=== PATIENT | male | born 1955 | race Caucasian/White ===

== ENCOUNTER 2022-12-05 19:43 | Emergency (ER) | payer MEDICARE, SELFPAY ==
[2022-12-05 19:58] VITALS: BP 164/86; PULSE 86; RESP 18; TEMP 36.4; O2SAT 96; BMI 26.4
--- NOTE | 2022-12-05 20:06 | ED.MALEGU1 ---
HPI - Male Genitourinary General Chief complaint: Urogenital-Male Stated complaint: Urine Retention Time Seen by Provider: 12/05/22 20:03 Mode of arrival: walk-in History of Present Illness HPI Narrative: patient is a 67-year-old male who presents to the emergency department for urinary retention. He states he has not been able to urinate for several hours. He takes Flomax daily to help him with his urine stream. He states he has had to have a Gómez catheter in the past due to urinary retention. He has not had any fevers, vomiting. No other urinary symptoms noted today. No medications taken prior to arrival. Related Data Home Medications Medication Instructions Recorded Confirmed tamsulosin 0.4 mg capsule 0.4 mg PO DAILY 12/05/22 12/05/22 Allergies Allergy/AdvReac Type Severity Reaction Status Date / Time No Known Drug Allergies Allergy Verified 12/05/22 20:01 Review of Systems ROS Constitutional Denies: fever or chills Respiratory Denies: shortness of breath or cough Gastrointestinal Reports: abdominal pain; Denies: nausea, vomiting or diarrhea Genitourinary Reports: difficulty urinating; Denies: painful urination or blood in urine Musculoskeletal Denies: back pain Integumentary/Breast Denies: rash Hematologic/Lymphatic Denies: easy bruising PFSH PFSH Social History Smoking status: Never smoker Exam Constitutional Vital Signs, click to edit/add: Last Vital Signs Temp 97.6 F 12/05/22 19:58 Pulse 82 12/05/22 21:09 Resp 14 12/05/22 21:09 BP 134/84 12/05/22 21:09 Pulse Ox 93 L 12/05/22 21:09 O2 Del Method Room Air 12/05/22 21:09 Course Vital Signs Vital signs: Vital Signs Temperature 97.6 F 12/05/22 19:58 Pulse Rate 86 12/05/22 19:58 Respiratory Rate 18 12/05/22 19:58 Blood Pressure 164/86 H 12/05/22 19:58 Pulse Oximetry 96 12/05/22 19:58 Oxygen Delivery Method Room Air 12/05/22 19:58 Temperature 97.6 F 12/05/22 19:58 Pulse Rate 82 12/05/22 21:09 Respiratory Rate 14 12/05/22 21:09 Blood Pressure 134/84 12/05/22 21:09 Pulse Oximetry 93 L 12/05/22 21:09 Oxygen Delivery Method Room Air 12/05/22 21:09 MDM - Male Genitourinary MDM Narrative Medical decision making narrative: bladder scan with greater than 700mL, Gómez catheter was placed and over 1000mLs were drained, patient states he feels much better. Urine specimen with no evidence of urinary tract infection. Patient was encouraged to keep the Gómez catheter in place for at least 3-5 days. He does not currently have a primary care provider or urologist. He is referred to both primary care and urology locally. He understands he should return to the Emergency Room if he is having trouble getting in with a provider to remove the Gómez catheter. Return to the Emergency Room if symptoms change or worsen. He is sitting comfortably awaiting discharge at reevaluation. Medical Records Attestation: I reviewed the patient's medical records. Lab Data Attestation: I reviewed the patient's lab results. Labs: Lab Results 12/05/22 Range/Units 20:20 Urine Color Lt. yellow (YELLOW) Urine Clarity Clear (CLEAR) Urine pH 6.0 (5.0-9.0) Ur Specific [place] <=1.005 A (1.005-1.025) Urine Protein Negative (NEG/TRACE) mg/dL Urine Glucose (UA) Negative (NEGATIVE) mg/dL Urine Ketones Negative (NEGATIVE) mg/dL Urine Occult Blood Negative (NEGATIVE) Urine Nitrite Negative (NEGATIVE) Urine Bilirubin Negative (NEGATIVE) Urine Urobilinogen 0.2 (0.2-1.0) EU/dL Ur Leukocyte Esterase Trace A (NEGATIVE) Urine RBC 0-2 (0-2) #/HPF Urine WBC 0-2 A (NONE SEEN) #/HPF Ur Squamous Epith Cells Rare (NONE/RARE) #/LPF Urine Crystals None seen (None Seen) #/HPF Urine Bacteria None seen (NONE SEEN) #/HPF Urine Casts None seen (NONE SEEN) #/LPF Urine Mucus None seen (NONE SEEN) Ur Culture Indicated? No Discharge Plan Discharge Chief Complaint: Urogenital-Male Clinical Impression: Acute urinary retention Patient Disposition: Home, Self-Care Time of Disposition Decision: 21:00 Condition: Good Prescriptions / Home Meds: No Action tamsulosin 0.4 mg capsule 0.4 mg PO DAILY Instructions: Urinary Retention in Men (ED), Gómez Catheter Placement and Care (ED) Stand Alone Forms: Portal Instructions Referrals: Halley Cristobal MD [Physician] - As soon as possible MICHEAL XIONG APRN [Physician] - As soon as possible Discharge Date/Time: 12/05/22 21:11
[2022-12-05 20:38] LABS: Bilirubin Urine NEGATIVE (NEGATIVE); Blood Urine NEGATIVE (NEGATIVE); Clarity Urine CLEAR (CLEAR); Color Urine LT. YELLOW (YELLOW); Glucose Urine UA NEGATIVE (NEGATIVE); Ketones Urine NEGATIVE (NEGATIVE); Leukocyte Esterase Urine TRACE (NEGATIVE); Nitrite Urine NEGATIVE (NEGATIVE); Protein Urine NEGATIVE (NEG/TRACE); Specific Gravity Urine <=1.005 (1.005-1.025); Urine Microscopic Indicated YES; Urobilinogen Urine 0.2 EU/dL (0.2-1.0)
[2022-12-05 20:51] LABS: Bacteria Urine NONE SEEN #/HPF (NONE SEEN); Cast Seen? NONE SEEN #/LPF (NONE SEEN); Crystals Seen? None Seen #/HPF (None Seen); Mucus Urine NONE SEEN (NONE SEEN); RBC Urine 0-2 #/HPF (0-2); Squamous Epithelial Cell Urine RARE #/LPF (NONE/RARE); Urine Culture Indicated NO; WBC Urine 0-2 #/HPF (NONE SEEN)
[2022-12-05 21:09] VITALS: BP 134/84; PULSE 82; RESP 14; O2SAT 93
== END 2022-12-05 21:11 | disposition home or self-care (01) ==
PROVIDERS: Physician Assistant; Emergency Provider Internal Medicine
DX: R33.9 Retention of urine, unspecified (principal); Z79.899 Other long term (current) drug therapy
CPT/HCPCS: 51702; 81001; 99284

== ENCOUNTER 2022-12-06 08:03 | Emergency (ER) | payer MEDICARE, SELFPAY ==
[2022-12-06 08:09] VITALS: BP 167/92; PULSE 87; RESP 18; TEMP 36.5; O2SAT 97; BMI 26.4
--- NOTE | 2022-12-06 08:20 | ED_ITS ---
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 He was seen here in this emergency department last night and had acute urinary retention. Gómez catheter was placed. The catheter has been draining but intermittently he's been having some pain which makes him feel like he has to urinate. No fever or back pain. Related Data Home Medications Medication Instructions Recorded Confirmed tamsulosin 0.4 mg capsule 0.4 mg PO DAILY 12/05/22 12/06/22 Previous Rx's Medication Instructions Recorded oxybutynin chloride 5 mg 5 mg PO DAILY #14 tabs 12/06/22 tablet,extended release 24 hr Allergies Allergy/AdvReac Type Severity Reaction Status Date / Time No Known Drug Allergies Allergy Verified 12/05/22 20:01 Review of Systems ROS Narrative A ten point review of systems is negative except as noted above. PFSH PFSH Social History Smoking status: Former smoker Exam Narrative Exam Narrative: Nurses note and vital signs reviewed and patient is not hypoxic. General: The patient appears well and in no apparent distress. Patient is resting comfortably on cart. Skin: Warm, dry, no pallor noted. There is no rash noted. Head: Normocephalic, atraumatic Eye: Normal conjunctiva, no drainage Ears, Nose, Mouth, and Throat: oral mucosa is moist. Nares patent. Cardiovascular: Regular Rate and Rhythm Respiratory: Patient is in no distress, no accessory muscle use, lungs are clear to auscultation, no wheezing, rales or rhonchi Back: non-tender : Gómez catheter in place which is draining clear pink urine. GI: soft and nontender and nondistended Musculoskeletal: The patient has no evidence of calf tenderness, no pitting edema, symmetrical pulses noted bilaterally Neurological: A&O, normal speech Psychiatric: Cooperative Constitutional Vital Signs, click to edit/add: Last Vital Signs Temp 97.7 F 12/06/22 08:09 Pulse 89 12/06/22 09:40 Resp 18 12/06/22 09:40 BP 160/93 H 12/06/22 09:40 Pulse Ox 98 12/06/22 09:40 O2 Del Method Room Air 12/06/22 08:09 Course Vital Signs Vital signs: Vital Signs Temperature 97.7 F 12/06/22 08:09 Pulse Rate 87 12/06/22 08:09 Respiratory Rate 18 12/06/22 08:09 Blood Pressure 167/92 H 12/06/22 08:09 Pulse Oximetry 97 12/06/22 08:09 Oxygen Delivery Method Room Air 12/06/22 08:09 Temperature 97.7 F 12/06/22 08:09 Pulse Rate 89 12/06/22 09:40 Respiratory Rate 18 12/06/22 09:40 Blood Pressure 160/93 H 12/06/22 09:40 Pulse Oximetry 98 12/06/22 09:40 Oxygen Delivery Method Room Air 12/06/22 08:09 MDM - Male Genitourinary MDM Narrative Medical decision making narrative: CAT scan shows no acute findings. Bloodwork nonspecific. He'll be prescribed oxybutynin and follow-up with urology. Treatment diagnosis and follow-up were discussed with the patient. Differential Diagnosis Differential diagnosis: Likely other (bladder spasm, Gómez catheter problem) Medical Records Attestation: I reviewed the patient's medical records. Lab Data Attestation: I reviewed the patient's lab results. Labs: Lab Results 12/06/22 12/06/22 Range/Units 08:23 08:30 WBC 5.8 (4.0-11.0) 10^3/uL RBC 4.41 L (4.70-6.10) 10^6/uL Hgb 14.6 (14.0-18.0) g/dL Hct 43.4 (42.0-54.0) % MCV 98.4 H (80.0-94.0) fL MCH 33.1 (25.9-34.0) pg MCHC 33.6 (29.9-35.2) g/dL RDW 12.5 (11.0-15.0) % Plt Count 277 (150-450) 10^3/uL MPV 8.4 L (9.5-13.5) fL Neut % (Auto) 71.6 (43.0-75.0) % Lymph % (Auto) 16.6 L (20.5-60.0) % [place] % (Auto) 7.4 (1.7-12.0) % Eos % (Auto) 3.1 (0.9-7.0) % Baso % (Auto) 1.0 (0.2-2.0) % Neut # (Auto) 4.1 (1.4-6.5) 10^3/uL Lymph # (Auto) 1.0 L (1.2-3.8) 10^3/uL [place] # (Auto) 0.4 (0.3-0.8) 10^3/uL Eos # (Auto) 0.2 (0.0-0.7) 10^3/uL Baso # (Auto) 0.1 (0.0-0.1) 10^3/uL Abs Immat Gran (auto) 0.02 (0.00-0.03) 10^3/uL Imm/Tot Granulo (auto) 0.3 (0.0-0.5) % Sodium 136 (136-145) mmol/L Potassium 4.4 (3.5-5.1) mmol/L Chloride 99 (98-107) mmol/L Carbon Dioxide 30.3 (21.0-32.0) mmol/L Anion Gap 11.1 BUN 14.0 (7.0-18.0) mg/dL Creatinine 0.81 (0.70-1.30) mg/dL Est GFR ( Amer) >60 (>=60) Est GFR (Non-Af Amer) >60 (>=60) BUN/Creatinine Ratio 17.3 Glucose 100 (74-106) mg/dL Calcium 9.1 (8.5-10.1) mg/dL Urine Color Brown A (YELLOW) Urine Clarity Clear (CLEAR) Urine pH 8.0 (5.0-9.0) Ur Specific [place] 1.020 (1.005-1.025) Urine Protein >=300 A (NEG/TRACE) mg/dL Urine Glucose (UA) Negative (NEGATIVE) mg/dL Urine Ketones Trace A (NEGATIVE) mg/dL Urine Occult Blood Large A (NEGATIVE) Urine Nitrite Negative (NEGATIVE) Urine Bilirubin Small A (NEGATIVE) Urine Urobilinogen 1.0 (0.2-1.0) EU/dL Ur Leukocyte Esterase Trace A (NEGATIVE) Urine RBC 50-75 A (0-2) #/HPF Urine WBC 2-5 A (NONE SEEN) #/HPF Ur Squamous Epith Cells Rare (NONE/RARE) #/LPF Urine Crystals None seen (None Seen) #/HPF Urine Bacteria Small A (NONE SEEN) #/HPF Urine Casts Seen A (NONE SEEN) #/LPF Hyaline Casts Rare Urine Mucus None seen (NONE SEEN) Ur Culture Indicated? Yes Imaging Data CT scan - abdomen: Radiologist's impression: Procedure: CT abdomen pelvis w con CT abdomen pelvis w con, 12/06/2022 9:21 AM EDT, [place]001 INDICATION: Gómez catheter placed yesterday, having discomfort COMPARISON: None. TECHNIQUE: Helical images were obtained during intravenous administration of water soluble contrast. Coronal and sagittal reconstructions were also generated. Dose reduction techniques were achieved by using automated exposure control and/or adjustment of mA and/or kV according to patient size and/or use of iterative reconstruction technique. Oral contrast: None. FINDINGS: Slight bibasilar atelectasis. There is decreased density of the hepatic parenchyma most consistent with fatty infiltration. The gallbladder appears unremarkable. The pancreas is within normal limits. The spleen appears unremarkable. The adrenal glands appear unremarkable. There are a few nonobstructing renal calculi bilaterally, the largest measuring 4 mm in the inferior pole of the left kidney. There is no evidence of hydronephrosis or perinephric process. The vasculature appears unremarkable. There is no pathologic retroperitoneal adenopathy. There is a Gómez catheter within the bladder. There is moderate diffuse bladder wall thickening. Prostate gland is enlarged at 6 cm transverse. There is no evidence of pathologic pelvic adenopathy. There is no evidence of free air or free fluid. The bowel loops appear unremarkable. The appendix appears unremarkable. No significant hernia is identified. The osseous structures appear unremarkable. IMPRESSION: There is enlargement of the prostate gland, and moderate urinary bladder wall thickening which can be seen with muscular hypertrophy and cystitis. Gómez catheter projects within the bladder. Several small bilateral nonobstructing bilateral renal calculi. Hepatic steatosis. Electronically authenticated by: SYD GOMEZ Date: 12/06/2022 Discharge Plan Discharge Chief Complaint: Urogenital-Male Clinical Impression: Bladder spasms Patient Disposition: Home, Self-Care Time of Disposition Decision: 10:15 Condition: Good Mode of Transportation: Private Vehicle Prescriptions / Home Meds: New oxybutynin chloride 5 mg tablet extended release 24hr 5 mg PO DAILY Qty: 14 0RF No Action tamsulosin 0.4 mg capsule 0.4 mg PO DAILY Instructions: Gómez Catheter Placement and Care (ED) Stand Alone Forms: Portal Instructions Referrals: Physician,Non-Staff, MD [Primary Care Provider] - 1 week Discharge Date/Time: 12/06/22 10:37
[2022-12-06 08:41] LABS: Basophils Absolute Auto 0.1 10^3/uL (0.0-0.1); Eosinophils Absolute Auto 0.2 10^3/uL (0.0-0.7); Eosinophils Percent Auto 3.1 % (0.9-7.0); Hematocrit 43.4 % (42.0-54.0); Hemoglobin 14.6 g/dL (14.0-18.0); Immature Granulocytes Abs Auto 0.02 10^3/uL (0.00-0.03); Immature Granulocytes Pct Auto 0.3 % (0.0-0.5); Lymphocytes Percent Auto 16.6 % (20.5-60.0); Mean Corpuscular HGB Conc 33.6 g/dL (29.9-35.2); Mean Corpuscular Hemoglobin 33.1 pg (25.9-34.0); Mean Corpuscular Volume 98.4 fL (80.0-94.0); Mean Platelet Volume 8.4 fL (9.5-13.5); Monocytes Absolute Auto 0.4 10^3/uL (0.3-0.8); Monocytes Percent Auto 7.4 % (1.7-12.0); Neutrophils Absolute Auto 4.1 10^3/uL (1.4-6.5); Neutrophils Percent Auto 71.6 % (43.0-75.0); Platelet Count 277 10^3/uL (150-450); Red Blood Count 4.41 10^6/uL (4.70-6.10); Red Cell Distribution Width 12.5 % (11.0-15.0); White Blood Count 5.8 10^3/uL (4.0-11.0)
[2022-12-06 08:44] LABS: Bilirubin Urine SMALL (NEGATIVE); Blood Urine LARGE (NEGATIVE); Clarity Urine CLEAR (CLEAR); Color Urine BROWN (YELLOW); Glucose Urine UA NEGATIVE (NEGATIVE); Ketones Urine TRACE mg/dL (NEGATIVE); Leukocyte Esterase Urine TRACE (NEGATIVE); Nitrite Urine NEGATIVE (NEGATIVE); Protein Urine >=300 mg/dL (NEG/TRACE)
[2022-12-06 08:56] LABS: Anion Gap 11.1; BUN Creatinine Ratio 17.3; Calcium 9.1 mg/dL (8.5-10.1); Carbon Dioxide 30.3 mmol/L (21.0-32.0); Chloride 99 mmol/L (98-107); Estimated GFR (African America >60 (>=60); Estimated GFR (Non-African Ame >60 (>=60); Glucose 100 mg/dL (74-106); Potassium 4.4 mmol/L (3.5-5.1); Sodium 136 mmol/L (136-145)
[2022-12-06 08:57] LABS: Bacteria Urine SMALL #/HPF (NONE SEEN); Mucus Urine NONE SEEN (NONE SEEN); RBC Urine 50-75 #/HPF (0-2)
[2022-12-06 08:58] LABS: Cast Seen? SEEN #/LPF (NONE SEEN); Crystals Seen? None Seen #/HPF (None Seen); Hyaline Casts Urine RARE; Squamous Epithelial Cell Urine RARE #/LPF (NONE/RARE)
[2022-12-06 08:59] LABS: Urine Culture Indicated YES
--- NOTE | 2022-12-06 09:03 | CT_ITS ---
The [address] [address] Patient Name: JOSE ARMANDO SALGUERO MRN: [id number] date: 1955 Sex: M Assigned Patient Location: ER Current Patient Location: ER Accession/Order Number: [id number] Exam Date: 12/06/2022 09:21 Report Date: 12/06/2022 09:53 At the request of: LIDA BOLANOS Procedure: CT abdomen pelvis w con CT abdomen pelvis w con, 12/06/2022 9:21 AM EDT, [place]001 INDICATION: Gómez catheter placed yesterday, having discomfort COMPARISON: None. TECHNIQUE: Helical images were obtained during intravenous administration of water soluble contrast. Coronal and sagittal reconstructions were also generated. Dose reduction techniques were achieved by using automated exposure control and/or adjustment of mA and/or kV according to patient size and/or use of iterative reconstruction technique. Oral contrast: None. FINDINGS: Slight bibasilar atelectasis. There is decreased density of the hepatic parenchyma most consistent with fatty infiltration. The gallbladder appears unremarkable. The pancreas is within normal limits. The spleen appears unremarkable. The adrenal glands appear unremarkable. There are a few nonobstructing renal calculi bilaterally, the largest measuring 4 mm in the inferior pole of the left kidney. There is no evidence of hydronephrosis or perinephric process. The vasculature appears unremarkable. There is no pathologic retroperitoneal adenopathy. There is a Gómez catheter within the bladder. There is moderate diffuse bladder wall thickening. Prostate gland is enlarged at 6 cm transverse. There is no evidence of pathologic pelvic adenopathy. There is no evidence of free air or free fluid. The bowel loops appear unremarkable. The appendix appears unremarkable. No significant hernia is identified. The osseous structures appear unremarkable. CT/CT abdomen pelvis w con IMPRESSION: There is enlargement of the prostate gland, and moderate urinary bladder wall thickening which can be seen with muscular hypertrophy and cystitis. Gómez catheter projects within the bladder. Several small bilateral nonobstructing bilateral renal calculi. Hepatic steatosis. Electronically authenticated by: SYD GOMEZ Date: 12/06/2022 09:53
[2022-12-06 09:40] VITALS: BP 160/93; PULSE 89; RESP 18; O2SAT 98
== END 2022-12-06 10:37 | disposition home or self-care (01) ==
PROVIDERS: Emergency Provider Emergency Medicine
DX: N32.89 Other specified disorders of bladder (principal); Z96.0 Presence of urogenital implants; Z79.899 Other long term (current) drug therapy; Z87.891 Personal history of nicotine dependence
CPT/HCPCS: 36415; 74177; 80048; 81001; 85025; 87086; 99285; Q9967

== ENCOUNTER 2022-12-09 07:10 | Emergency (ER) | payer MEDICARE, SELFPAY ==
[2022-12-09 07:12] VITALS: BP 179/92; PULSE 83; RESP 18; TEMP 36.4; O2SAT 96; BMI 29.9
--- NOTE | 2022-12-09 08:20 | ED.GENADUL1 ---
HPI - General Adult General Chief complaint: Urogenital-Male Stated complaint: CATH REMOVAL Time Seen by Provider: 12/09/22 07:56 Source: patient Mode of arrival: walk-in History of Present Illness HPI narrative: Patient is a 67-year-old male who is presenting to the Emergency Room with chief complaint I'm wondering Gómez catheter removed. Patient was a patient in the Emergency Room on Monday. Patient is having urinary retention, Gómez catheter was placed. Patient was a follow-up with urology. Patient has seen Dr. Arellano in the past. Patient was going to follow up with Dr. Manriquez. There is some sort of issue with the urology office that they have dismissed this patient from the practice and they will not see him. Patient does take Ditropan and Flomax prescribed from Dr. Arellano, he does have several refills. Patient is having no acute complaints with his Gómez catheter, he does not one in any more and can't to the Emergency Room to have removed since he cannot follow-up with urology. Patient has no sediment, no hematuria, no difficulty with fully catheter. Urine is full and the difficulty. His chief concern is I just want my Gómez catheter taken out . All systems are negative except as noted/marked. All systems reviewed and otherwise negative. . Nurses note and vital signs reviewed and patient is not hypoxic. General: The patient appears well and in no apparent distress. Patient is resting comfortably on cart. Patient is not toxic, lethargic, or listless Skin: Warm, dry, no pallor noted. There is no rash noted. No petechiae, purpura. Head: Normocephalic, atraumatic Eye: Normal conjunctiva, no drainage, EOMI. PERRL Ears, Nose, Mouth, and Throat: oral mucosa is moist. Cardiovascular: Regular Rate and Rhythm, no murmur, gallop, rub Respiratory: Patient is in no distress, no accessory muscle use, lungs are clear to auscultation, no wheezing, rales or rhonchi Back: non-tender, no CVA tenderness bilaterally to percussion. No CT LS midline pain GI: soft, no tenderness to palpation, no masses appreciated. No rebound, guarding, or rigidity noted. No flank pain bilateral, No distention : Patient is circumcised, no tenderness to palpation to bilateral testicles. Patient fully catheter is in place. Patient has yellow urine in his Gómez leg bag. No bleeding, no sediment, no blood or clots noted. Gómez catheter looks normal the way it should, no redness or swelling to the glans of the penis or shaft. No acute abnormality seen during exam. Caren Taylor RN at bedside during the entire exam. Musculoskeletal: Patient has full range of motion of all of the extremities, no motor, sensory, or focal neurological deficits Neurological: A&O x3, normal speech Psychiatric: Cooperative Related Data Home Medications Medication Instructions Recorded Confirmed tamsulosin 0.4 mg capsule 0.4 mg PO DAILY 12/05/22 12/06/22 Previous Rx's Medication Instructions Recorded oxybutynin chloride 5 mg 5 mg PO DAILY #14 tabs 12/06/22 tablet,extended release 24 hr Allergies Allergy/AdvReac Type Severity Reaction Status Date / Time No Known Drug Allergies Allergy Verified 12/05/22 20:01 PFSH PFS Social History Smoking status: Current every day smoker Exam Constitutional Vital Signs, click to edit/add: Last Vital Signs Temp 97.6 F 12/09/22 07:12 Pulse 83 12/09/22 07:12 Resp 18 12/09/22 07:12 BP 179/92 H 12/09/22 07:12 Pulse Ox 96 12/09/22 07:12 O2 Del Method Room Air 12/09/22 07:12 Course Vital Signs Vital signs: Vital Signs Temperature 97.6 F 12/09/22 07:12 Pulse Rate 83 12/09/22 07:12 Respiratory Rate 18 12/09/22 07:12 Blood Pressure 179/92 H 12/09/22 07:12 Pulse Oximetry 96 12/09/22 07:12 Oxygen Delivery Method Room Air 12/09/22 07:12 Temperature 97.6 F 12/09/22 07:12 Pulse Rate 83 12/09/22 07:12 Respiratory Rate 18 12/09/22 07:12 Blood Pressure 179/92 H 12/09/22 07:12 Pulse Oximetry 96 12/09/22 07:12 Oxygen Delivery Method Room Air 12/09/22 07:12 Medical Decision Making MDM Narrative Medical decision making narrative: Patient was educated at bedside. Caren Taylor RN was at bedside during the entire HPI and physical exam. Patient was educated that we do not typically take Gómez catheter is in the Emergency Room because there is a very high chance that with his urinary retention or other etiologies that caused him to have a Gómez catheter placed just 4 days ago, chance is very high that he may have urinary difficulties later today and becoming back to the Emergency Room tonight to have a Gómez catheter placed. Patient says that he has burned bridges and Dr. Arellano office, their office will no longer see him. I have reached out to other hospitals locally to try and help this patient establish with another urologist. We have given him information from [facility] and also with [facility] urologist to follow up with his other local U sources, patient lives in [place]. Patient's urine looks yellow, no acute abnormalities, no blood clots, sediment, no acute abnormalities noted. Patient was told once he has a catheter several hours, he needs a follow-up with urology for further evaluation and to see if they would take the catheter out or not. Patient does have Flomax and Ditropan prescribed from Dr. Arellano, he has a few refills left. Patient understands the education given to him at bedside and understands reasons why I am not removing the Gómez catheter today, there is no acute indication to. Patient does have a nurse practitioner to follow-up with as well for family care needs. Discharge Plan Discharge Chief Complaint: Urogenital-Male Clinical Impression: Gómez catheter in place Patient Disposition: Home, Self-Care Condition: Fair Prescriptions / Home Meds: No Action oxybutynin chloride 5 mg tablet extended release 24hr 5 mg PO DAILY Qty: 14 0RF tamsulosin 0.4 mg capsule 0.4 mg PO DAILY Instructions: Gómez Catheter Placement and Care (ED) [phone] [facility] Ferreira, [facility] [address] [place] [address] Stand Alone Forms: Portal Instructions Referrals: Physician,Non-Staff, [Primary Care Provider] - 1 week Discharge Date/Time: 12/09/22 08:15
== END 2022-12-09 08:15 | disposition home or self-care (01) ==
PROVIDERS: Emergency Provider Emergency Medicine
DX: Z96.0 Presence of urogenital implants (principal); F17.210 Nicotine dependence, cigarettes, uncomplicated; Z79.899 Other long term (current) drug therapy
CPT/HCPCS: 99282

== ENCOUNTER 2023-01-11 07:27 | Outpatient (OUT) | payer MEDICARE, SELFPAY ==
[2023-01-11 07:47] LABS: Basophils Percent Auto 0.9 % (0.2-2.0); Eosinophils Absolute Auto 0.2 10^3/uL (0.0-0.7); Eosinophils Percent Auto 4.5 % (0.9-7.0); Hematocrit 44.7 % (42.0-54.0); Immature Granulocytes Abs Auto 0.01 10^3/uL (0.00-0.03); Immature Granulocytes Pct Auto 0.2 % (0.0-0.5); Lymphocytes Absolute Auto 1.2 10^3/uL (1.2-3.8); Lymphocytes Percent Auto 25.8 % (20.5-60.0); Mean Corpuscular HGB Conc 33.6 g/dL (29.9-35.2); Mean Corpuscular Volume 98.5 fL (80.0-94.0); Mean Platelet Volume 8.7 fL (9.5-13.5); Monocytes Absolute Auto 0.4 10^3/uL (0.3-0.8); Monocytes Percent Auto 8.2 % (1.7-12.0); Neutrophils Absolute Auto 2.8 10^3/uL (1.4-6.5); Neutrophils Percent Auto 60.4 % (43.0-75.0); Platelet Count 291 10^3/uL (150-450); Red Blood Count 4.54 10^6/uL (4.70-6.10); Red Cell Distribution Width 12.3 % (11.0-15.0); White Blood Count 4.6 10^3/uL (4.0-11.0)
--- NOTE | 2023-01-11 07:50 | CT_ITS ---
[address] [address] Patient Name: JOSE ARMANDO SALGUERO MRN: [id number] date: 1955 Sex: M Assigned Patient Location: CT Current Patient Location: CT Accession/Order Number: [id number] Exam Date: 01/11/2023 07:55 Report Date: 01/13/2023 06:58 At the request of: MICHEAL XIONG Procedure: CT lung screening low-dose EXAMINATION: CT lung screening low-dose HISTORY: Screening For Malignant Neoplasm Z12.2 COMPARISON: No relevant comparison available. TECHNIQUE: Axial, Coronal, and Sagittal images were created without the administration of IV contrast material. Dose reduction techniques were achieved by using automated exposure control and/or adjustment of mA and/or kV according to patient size and/or use of iterative reconstruction technique. FINDINGS: LUNGS: No visible pulmonary disease. PLEURA: No mass, effusion, or pneumothorax. VASCULATURE: No abnormality. SONAM: No mass or pathologic adenopathy. MEDIASTINUM: No mass or pathologic adenopathy. CARDIAC: No enlargement, pericardial thickening, or significant calcification. AORTA: No aneurysm or dissection. CHEST WALL: No mass or axillary adenopathy BONES: No bone lesion or fracture. LIMITED ABDOMEN: No suspicious findings. Limited images of the upper abdomen. OTHER: Negative. CT/CT lung screening low-dose IMPRESSION: 1. Lung-RADS Category 1 Negative. No nodules and definitely benign nodules. Continue annual screening with LDCT in 12 months. Electronically authenticated by: MURALI NAGEL Date: 01/13/2023 06:58
[2023-01-11 08:16] LABS: Estimated Average Glucose 108 mg/dL; Glycohemoglobin A1C 5.4 % (4.5-6.2)
[2023-01-11 08:42] LABS: Alanine Aminotransferase 27 U/L (16-63); Albumin Level 3.9 g/dL (3.4-5.0); Alkaline Phosphatase 60 U/L (46-116); Aspartate Amino Transferase 18 U/L (15-37); BUN Creatinine Ratio 26.1; Bilirubin Total 0.8 mg/dL (0.2-1.0); Calcium 8.9 mg/dL (8.5-10.1); Chloride 101 mmol/L (98-107); Cholesterol 223 mg/dL (<=200); Estimated GFR (African America >60 (>=60); Estimated GFR (Non-African Ame >60 (>=60); Globulin 3.8 g/dL; Glucose 103 mg/dL (74-106); HDL Cholesterol 113 mg/dL (40-60); Sodium 141 mmol/L (136-145); Total Protein 7.7 g/dL (6.4-8.2); Triglycerides 29 mg/dL (<=150); VLDL CHOLESTEROL 5.8 mg/dL
[2023-01-12 03:07] LABS: HCV Ab Non Reactive (Non Reactive); HIV Ab/p24 Ag Screen Non Reactive (Non Reactive)
== END 2023-01-11 07:28 | disposition home or self-care (01) ==
LOC: CT 07:27
PROVIDERS: PCP Nurse Practitioner Primary Care; Visit Provider Nurse Practitioner Primary Care
DX: Z00.00 Encounter for general adult medical examination without abnormal findings (principal); Z11.59 Encounter for screening for other viral diseases; Z13.6 Encounter for screening for cardiovascular disorders; Z11.4 Encounter for screening for human immunodeficiency virus [HIV]; Z12.2 Encounter for screening for malignant neoplasm of respiratory organs; Z87.891 Personal history of nicotine dependence
CPT/HCPCS: 36415; 71271; 80053; 80061; 83036; 85025; 86803; 87389

== ENCOUNTER 2023-01-11 07:31 | Outpatient (OUT) | payer MEDICARE, SELFPAY ==
[2023-01-11 08:56] LABS: Prostate Specific Antigen Dx 13.44 ng/mL (<=4.00)
== END 2023-01-11 07:32 | disposition home or self-care (01) ==
LOC: LAB 07:32
PROVIDERS: PCP Nurse Practitioner Primary Care
DX: R97.20 Elevated prostate specific antigen [PSA] (principal)
CPT/HCPCS: 36415; 84153

== ENCOUNTER 2025-02-03 18:28 | Emergency (ER) | payer MEDICARE, SELFPAY ==
--- OUTSIDE RECORDS SUMMARY | 2024-11-14 03:30 | XMS_ITS ---
Author Organization [facility] Address [address] [place] [id number] Care Team Providers Care Channel Man Name Role Phone Nunu Tierney Primary Care Provider [phone] REASON FOR VISIT 6 month HTN, BPH Social History Sex Assigned At : Social History Observation Description Sex Assigned At Male Encounters Encounter Location Date Provider Diagnosis [facility] [address] [facility] [facility] [place] [place] [id number] 11/14/2024 Nunu Tierney Plan Of Treatment Next Appt Details Provider Name:Nunu Tierney , 05/12/2025 07:30:00 AM, [address] [place], [place], [id number], Progress Notes * Franki SALGUERO BDOB:[birth year] (69 yo M)Acc No.[id number]:11/14/2024 Medical Note Patient: Franki Pino :?Nunu NiallDOB:1955???Age:69 Y???Sex: MaleDate:11/14/2024Phone:[phone]:[address] [place] [id number] Subjective: * Chief Complaints: * 6 month HTN, BPH * Electronic signature of TALIA Richey on 02/03/2025 at 07:26 PM ESTSign off status: Pending * Provider: Umang Tierney Date: 0 11/14/2024 Generated for Printing/Faxing/eTransmitting on:?02/03/2025 07:26 PM EST
--- OUTSIDE RECORDS SUMMARY | 2025-01-27 02:15 | XMS_ITS ---
Author Organization [facility] vices Address [address], [place] [id number] Care Team Providers Care Physician Support Coordinator Name Role Phone Nunu Tierney Primary Care Provider Allergies No Known Allergies Results Component Value Reference Range Notes SPINE LUMBAR MIN 4 VWS Reviewed date:01/28/2025 08:13:35 AM Interpretation: Performing Lab: Notes/Report: SEE RESULTS BELOW CLINICAL INFORMATION: REASON FOR VISIT back issues Medications Medication SIG (Take, Route, Frequency, Duration) Notes Start Date End Date Status Cyclobenzaprine HCl 10 MG Tablet 1 table t at bedtime as needed Orally Once a day; Duration: 30 day(s) 12/09/2024Not-Taking/PRNTamsulosin HCl 0.4 MG Capsule2 capsules in the morning, 1 capsule in the evening Orally; Duration: 90 daysActiveMetamucil 3 in 1 Daily Fiber 400 MG Capsuleas directed OrallyActiveMultivitamin - Tablet1 tablet Orally Once a dayActivepredniSONE 50 MG Tablet1 tablet with food or milk Orally Once a day; Duration: 5 days5ActivehydroCHLOROthiazide 12.5 MG Tablet1 tablet in the morning Orally Once a day; Duration: 90 daysActiveMupirocin 2 % Ointment1 application Externally Twice a day; Duration: 5 days4ActiveVitamin C ActiveFish OilActiveNaproxen 500 MG Tablet1 tablet with food or milk as needed Orally every 12 hrs; Duration: 30 days5ActiveLosartan Potassium 100 MG Tablet1 tablet Orally Once a day; Duration: 90 daysActive Social History Sex Assigned At : Social History Observation Description Sex Assigned At Male Problems Problem Type SNOMED Code ICD Code Onset Dates Problem Status W/U Status Risk Notes Problem Lumbar radiculopathy (135610077) Lumbar back pain with radiculopathy affecting lower extremity (M54.16) Activeconfirmed Vital Signs Temperature 98.0 degrees Fahrenheit 01/28/20 25 Blood pressure systolic 137 mm Hg 01/28/20 25 Blood pressure diastolic 84 mm Hg 025 Heart Rate 72 /min 01/27/2025 Respiratory Rate 18 /min 01/27/2025 Height 68 in 01/27/2025 Weight 189 lbs 01/27/2025 BMI 28.73 kg/m2 01/27/2025 Oximetry 98 % 01/27/2025 Height-cm 172.72 cm 01/27/2025 Weight-kg 85.73 kg 01/27/2025 Wilton Horne 025 07:17:50 AM EST > Encounters Encounter Location Date Provider Diagnosis Main [address] [place] , [place] [id number] 01/27/2025 Nunu [facility] Lumbar back pain wit h radiculopathy affecting lower extremity M54.16 ; Essential hypertension I10 ; Overweight E66.3 and Body mass index [BMI] 28.0-28.9, adult Z68.28 Assessments Encounter Date Diagnosis (ICD Code) Assessment Notes Treatment Notes Treatment Clinical Notes Section Notes 01/27/2025 Lumbar back pain wit h radiculopathy affecting lower extremity (ICD-10 - M54.16) Pt has pain in lumbar spine Pt advised to use ice and/or moist heat as needed Encouraged pt to take Tylenol Arthritis 650mg TID PRN and/or Naproxen PRN for pain w/ food XR ordered at this time, will call w/ results and consider MRI pending results Will refer pt to PT / Ortho / Pain Management if pain does not resolve w/ symptomatic management. 01/27/2025Essential hypertension (ICD-10 - I10) Hypertension is stable at this time. Continue current medications. Encouraged healthy diet and exercise. F/U 3 months & PRN 01/27/2025Overweight (ICD-10 - E66.3)01/27/2025ody mass index [BMI] 28.0-28.9, adult (ICD-10 - Z68.28) Plan Of Treatment Medication Medication Name Sig Start Date Stop Date Notes predniSONE 50 MG Tablet 1 tablet with fo od or milk Orally Once a day; Duration: 5 days 01/27/2025 hydroCHLOROthiazide 12.5 MG Tablet1 tablet in the morning Orally Once a day; Duration: 90 daysNaproxen 500 MG Tablet1 tablet with food or milk as needed Orally every 12 hrs; Duration: 30 days12/09/2024Losartan Potassium 100 MG Tablet 1 tablet Orally Once a day; Duration: 90 daysTreatment Notes Assessment Notes Lumbar back pain with radicu lopathy affecting lower extremity Pt has pain in lumbar spine Pt advised to use ice and/or moist heat as needed Encouraged pt to take Tylenol Arthritis 650mg TID PRN and/or Naproxen PRN for pain w/ food XR ordered at this time, will call w/ results and consider MRI pending results Will refer pt to PT / Ortho / Pain Management if pain does not resolve w/ symptomatic management. Essential hypertension Hypertension is stable at this time. Continue current medications. Encouraged healthy diet and exercise. F/U 3 months & PRN Next Appt Details Follow Up: 05/12/25, Reason: Provider Name:Nunu Tierney , 05/12/2025 07:30:00 AM, [address], [place], [id number], History and Physical Notes * Examination CategorySub-CategoryDetailNotesCategory NotesGeneral ExaminationGeneral appearance:alert, pleasant, well-nourished and in no acute distressHead: normocephalic, atraumaticHeart:regular rate and rhythm without murmurs, gallops, clicks or rubsLungs:clear to auscultation bilaterally, with good air movement and no rales, rhonchi or wheezesSkin:bruising noted in lower lumbar region, localized in the center of spine, tender to palpationPsych:alert and oriented x 3 , cooperative with exam, normal affect / mood , speech is clear and coherent CQM ExceptionsCurrently taking Aspirin:Aspirin Use:: No Progress Notes * Franki SALGUERO BDOB:[birth year] (69 yo M)Acc No.[id number]:01/27/2025 Medical Note Patient: Franki Pino :?Nunu TierneyDOB:1955???Age:69 Y???Sex: MaleDate:01/27/2025Phone:[phone]:[address] [address], [facility]-[id number] In:07:03 AM EST Subjective: * Chief Complaints: * B ack issues * HPI: ???Interim History:?LUMBAR BACK PAIN Pt last seen 12/09/24 for Lumbar Back Pain RX sent for Naproxen, Prednisone, Flexeril last visit Fell from ladder putting [employer] lights, last Monday.? Bruises on left hip and back.? Pain at a 8.? Wakes him up at night.? Didn't take Flexeril because his says it might stop his heart since its a muscle relaxer Pt reports he never went to get imaging done. * ROS: ???Negative except mentioned above in the HPI. * Medical History: BPH (benign prostatic hyperplasia) Hypertension Medical History Verified? * Surgical History: double hernia surgery 2007? hemorrhoidectomy 12/2022? Surgical History verified.? * Hospitalization/Major Diagno stic Procedure: See Above ? Hospitalization Verified.? * Family History: F ather: , diagnosed with Heart Disease, Cancer. M other: , kidney disease, COPD. P aternal Grand Father: . P aternal Grand Mother: . M aternal Grand Father: . M aternal Grand Mother: . B rother: alive, prostate problems.?Sister: alive, diagnosed with Cancer. 3 brother(s) , 2 sister(s) . . F amily History Verified.. * Social History: Social History Verified. No Social History documented. * Medications: T akingVitamin C Fish Oil Mupirocin 2 % Ointment 1 application Externally Twice a day Metamucil 3 in 1 Daily Fiber 400 MG Capsule as directed Orally Multivitamin - Tablet 1 tablet Orally Once a day hydroCHLOROthiazide 12.5 MG Tablet 1 tablet in the morning Orally Once a day Losartan Potassium 100 MG Tablet 1 tablet Orally Once a day Naproxen 500 MG Tablet 1 tablet with food or milk as needed Orally every 12 hrs Tamsulosin HCl 0.4 MG Capsule 2 capsules in the morning, 1 capsule in the evening Orally Taking Vitamin C Taking Fish Oil Taking Mupirocin 2 % Ointment 1 application Externally Twice a day Taking Metamucil 3 in 1 Daily Fiber 400 MG Capsule as directed Orally Taking Multivitamin - Tablet 1 tablet Orally Once a day Taking hydroCHLOROthiazide 12.5 MG Tablet 1 tablet in the morning Orally Once a day Taking Losartan Potassium 100 MG Tablet 1 tablet Orally Once a day Taking Naproxen 500 MG Tablet 1 tablet with food or milk as needed Orally every 12 hrs Taking Tamsulosin HCl 0.4 MG Capsule 2 capsules in the morning, 1 capsule in the evening Orally Not-Taking/PRNCyclobenzaprine HCl 10 MG Tablet 1 tablet at bedtime as needed Orally Once a day Not-Taking/PRN Cyclobenzaprine HCl 10 MG Tablet 1 tablet at bedtime as needed Orally Once a day DiscontinuedpredniSONE 10 MG Tablet Take 5 tabs by mouth once daily for 3 days, take 4 tabs once daily for 3 days, take 3 tabs once daily for 3 days, take 2 tabs once daily for 3 days, then take 1 tab Orally once daily for 3 days Medication List reviewed and reconciled with the patientDiscontinued predniSONE 10 MG Tablet Take 5 tabs by mouth once daily for 3 days, take 4 tabs once daily for 3 days, take 3 tabs once daily for 3 days, take 2 tabs once daily for 3 days, then take 1 tab Orally once daily for 3 days Medication List reviewed and reconciled with the patient * Allergies: N .K.D.A.yesAllergies Verified. Objective: * Vitals: T emp:98.0F, Wt:189lbs, Ht: 68 in, BMI:28.73Index, BP: 143/93 mm Hg,137/84mm Hg, HR:72/min, RR:18/min, Pain scale:81-10, Oxygen sat %:98%, Wt-k.73 kg, Ht- cm: 172.72 cm, Body Surface Area: 2.03. Wilton Horne 01/27/2025 07:17:50 AM EST >. * Examination: ???General Examination: ?General appearance:?alert, pleasant, well-nourished and inno acute distress.?Head:?normocephalic, atraumatic.?Skin:?bruising noted in lower lumbar region, localized in the center of spine, tender to palpation.?Heart:?regular rate and rhythm without murmurs, gallops, clicks or rubs.?Lungs:?clear to auscultation bilaterally, with good air movement and no rales, rhonchi or wheezes.?Psych:?alert and oriented x 3 , cooperative with exam, normal affect / mood , speech is clear and coherent.?CQM Exceptions: ?Currently taking Aspirin:? Aspirin Use:?No??? Assessment: * Assessment: 1.?Lumbar back pain with radiculopathy affecting lower extremity - M54.16 (Primary)???2.?Essential hypertension - I10???3.?Overweight - E66.3??&# 160;4.?Body mass index [BMI] 28.0-28.9, adult - Z68.28??? Plan: * Treatment: Refill Naproxen Tablet, 500 MG, 1 tablet with food or milk as needed, Orally, every 12 hrs, 30 days, 60 Tablet, Refills 0;?Start predniSONE Tablet, 50 MG, 1 tablet with food or milk, Orally, Once a day, 5 days, 5, Refills 0.?Imaging: SPINE LUMBAR MIN 4 VWS* Notes: Pt has pain in lumbar spine Pt advised to use ice and/or moist heat as needed Encouraged pt to take Tylenol Arthritis 650mg TID PRN and/or Naproxen PRN for pain w/ food XR ordered at this time, will call w/ results and consider MRI pending results Will refer pt to PT / Ortho / Pain Management if pain does not resolve w/ symptomatic management. ??2.?Essential hypertension? Refill Losartan Potassium Tablet, 100 MG, 1 tablet, Orally, Once a day, 90 days, 90 Tablet, Refills1;?Refill hydroCHLOROthiazide Tablet, 12.5 MG, 1 tablet in the morning, Orally, Once a day, 90days, 90 Tablet, Refills 1.?? Notes: Hypertension is stable at this time. Continue current medications. Encouraged healthy diet and exercise. F/U 3 months & PRN?? * Procedure Codes: 3 079F HTN DIAST BP = 80-284451A HTN SYST BP = 130 - 139 * Preventive Medicine: ??Counseling:?Communication to patient:?Counseling for nutrition provided?Yes ?Counseling for physical activity provided?Yes * Follow Up: Billing Information: * Visit Code: 93387 Office Visit Est 30-39 minutes. * Procedure Codes: 3079F HTN DIAST BP = 80-89. 3075F HTN SYST BP = 130 - 139. * Sign off status: Completed true * Provider: Umang Tierney Date: 1 03/30/2024 Generated for Printing/Faxing/eTransmitting on:?02/03/2025 07:25 PM EST
--- OUTSIDE RECORDS SUMMARY | 2025-01-27 07:45 | XMS_ITS | Encounter Summary ---
Author Organization [facility] tem Address [id number] [address] [place] [address] Care Team Providers Care Portable Router Operator Name Role Phone Nunu Tierney CATTLE DEALER-FINANCIAL SYSTEMS ANALYST Primary Care Provider + Encounter Details DateTypeDepartmentCare Team (Latest Contact Info)Nimgttgzhhk63/08/2025 7:45 AM EST - 01/27/2025 11:59 PM ESTHospital Encounter [facility] - Radiology [address] [place] [address] Lumbar back pain with radiculopathy affecting lower extremity Discharge Disposition: Home Social History Tobacco UseTypesPacks/DayYears UsedDateSmoking Tobacco: FormerCigarettesQuit: 11/04/2017Smokeless Tobacco: NeverAlcohol UseStandard Drinks/WeekCommentsYes0 (1 standard drink = 0.6 oz pure alcohol)2 drinks of Absolut dailyChildcareAnswer Date AgpgdwtbYlkajmlkyNkddxau79/12/2019EmploymentAnswerDate RecordedEmployment Esqbqqz9608/01/2018Purpose - LifeAnswerDate RecordedPurpose and direction in life Stnhubk4104/02/2020ex and Gender InformationValueDate RecordedSex Assigned at BirthNot on fileLegal PmwIdij5509/25/2014 12:13 PM EDTGender IdentityNot on file Sexual OrientationNot on filedocumented as of this encounter Plan of Treatment Not on file documented as of this encounter Procedures Procedure NamePriorityDate/TimeAssociated DiagnosisCommentsXR SPINE LUMBAR MIN 4 DLJAqysdwd13/08/2025 7:56 AM EST Lumbar back pain with radiculopathy affecting lower extremity documented in this encounter Results * X-ray spine lumbar minimum 4 views (01/27/2025 7:56 AM EST)Anatomical Region LateralityModalityMSK, Neuro, Spine, L-spineN/AComputed RadiographySpecimen (Source)Anatomical Location / LateralityCollection Method / VolumeCollection TimeReceived Time01/27/2025 9:23 AM EST Narrative 01/27/2025 9:24 AM EST CLINICAL INFORMATION: Lumbar back pain with radiculopathy affecting lower extremity TECHNIQUE: XR SPINE LUMBAR MIN 4 VWS 4 views lumbar spine were obtained. There is no lumbar malalignment or compression. Disc spaces arenarrowed at L4-5 and L5-S1. Endplates intact. No acute fracture. Posterior elements unremarkable. IMPRESSION: Moderate lower lumbar degenerative changes Finalized by Darryl Ro MD on 01/27/2025 9:24 AM Procedure Note Darryl Ro MD - 01/27/2025 CLINICAL INFORMATION: Lumbar back pain with radiculopathy affecting lower extremity TECHNIQUE: XR SPINE LUMBAR MIN 4 VWS 4 views lumbar spine were obtained. There is no lumbar malalignment or compression. Disc spaces are narrowed at L4-5 and L5-S1. Endplates intact.No acute fracture. Posterior elements unremarkable. IMPRESSION: Moderate lower lumbar degenerative changes Finalized by Darryl Ro MD on 01/27/2025 9:24 AM Authorizing ProviderResult TypeResult StatusMiddletown State Hospitalsa Niall [facility] IMAGING ORDERABLESFinal Result documented in this encounter Visit Diagnoses Diagnosis Lumbar back pain with radiculopathy affecting lower extremity documented in this encounter Care Teams Team MemberRelationshipSpecialtyStart DateEnd Date Nunu Tierney APRN-AMY [facility] [id number] PCP - GeneralNurse Practitioner05/20/24documented as of this encounter
[2025-02-03 18:36] VITALS: BP 174/91; PULSE 91; TEMP 37.1; O2SAT 98; BMI 26.5
--- NOTE | 2025-02-03 19:04 | PC.NURSE ---
Pt presents to ER for urine retention Pt states this has happened to him before but it has been about 2 years Pt sees Yogesh urologist and takes Flomax regularly though he does not know his acutal diagnosis as to why this happens to him Pt states he was fine earlier today and this evening just suddenly felt the urge to urinate without the ability to do so On arrival patient is writhing in pain and holding his lower stomach Pts lower abdomen firm and distended Bladder scan performed by this nurse showed 750+ml Augustin catheter placed and pt had 1000ml clear urine output Pt states he felt immediate relief Secured with augustin securement device and Physician made aware
--- NOTE | 2025-02-03 19:20 | ED.MALEGU1 ---
HPI - Male Genitourinary General Chief complaint: Urogenital-Male Stated complaint: PROBLEMS URINATING Time Seen by Provider: 02/03/25 18:42 Source: patient Mode of arrival: walk-in Limitations: no limitations History of Present Illness HPI Narrative: past history of urinary retention. Last time he required a catheter was 2 years ago. Decreased output the past 4 hours. Did fall last week and injured his back but doing well now. No numbness of lower extremities. No recent injections in his back. No fever or chills. Related Data Home Medications ?Medication ?Instructions ?Recorded ?Confirmed tamsulosin 0.4 mg capsule 0.4 mg PO DAILY 12/05/22 02/03/25 hydrochlorothiazide 12.5 mg tablet mg 02/03/25 losartan 100 mg tablet mg 02/03/25 naproxen 500 mg tablet mg 02/03/25 Previous Rx's ?Medication ?Instructions ?Recorded oxybutynin chloride 5 mg 5 mg PO DAILY #14 tabs 12/06/22 tablet,extended release 24 hr Allergies Allergy/AdvReac Type Severity Reaction Status Date / Time No Known Drug Allergies Allergy Verified 02/03/25 18:40 Review of Systems ROS Status of ROS 10 or more systems reviewed and unremarkable except as noted in history and below PFSH PFSH Social History Smoking status: Current every day smoker Little interest or pleasure in doing things: not at all Feeling down, depressed, or hopeless: not at all Exam Constitutional Vital Signs, click to edit/add: Last Vital Signs Temp 98.7 F 02/03/25 18:36 Pulse 91 H 02/03/25 18:36 Resp 18 02/03/25 18:36 BP 174/91 H 02/03/25 18:36 Pulse Ox 98 02/03/25 18:36 Common normals: no apparent distress, average body habitus, oriented x3, no limitations, healthy appearing, alert and well nourished [facility] Common normals: normocephalic and head/scalp atraumatic Eye Common normals: EOMs intact bilaterally and conjunctivae normal Respiratory Common normals: normal respiratory effort, no retractions, no use of accessory muscles and clear to auscultation bilaterally Cardio Common normals: regular rate, regular rhythm, S1 normal heart sound and S2 normal heart sound GI Common normals: Normal to inspection, nondistended, normoactive bowel sounds present and soft to palpation Other: suprapubic fullness Extremity Common normals: normal to inspection and full ROM Neuro Common normals: oriented x3, CN's II-XII intact bilaterally, moves all extremities and no focal motor deficits Psych Appearance: grossly normal Course Vital Signs Vital signs: Vital Signs Temperature 98.7 F 02/03/25 18:36 Pulse Rate 91 H 02/03/25 18:36 Respiratory Rate 18 02/03/25 18:36 Blood Pressure 174/91 H 02/03/25 18:36 Pulse Oximetry 98 02/03/25 18:36 Temperature 98.7 F 02/03/25 18:36 Pulse Rate 91 H 02/03/25 18:36 Respiratory Rate 18 02/03/25 18:36 Blood Pressure 174/91 H 02/03/25 18:36 Pulse Oximetry 98 02/03/25 18:36 MDM - Male Genitourinary MDM Narrative Medical decision making narrative: presents with acute urinary retention. No systemic symptoms. Past history of urinary retention. Gómez placed by nursing and 900cc of urine collected. Patient discharged home with leg bag in place to follow up with his urologist Discharge Plan Discharge Chief Complaint: Urogenital-Male Clinical Impression: Acute urinary retention Patient Disposition: Home, Self-Care Prescriptions / Home Meds: No Action oxybutynin chloride 5 mg tablet extended release 24hr 5 mg PO DAILY Qty: 14 0RF losartan 100 mg tablet naproxen 500 mg tablet hydrochlorothiazide 12.5 mg tablet tamsulosin 0.4 mg capsule 0.4 mg PO DAILY Print Language: Paraguayan Instructions: Urinary Retention in Men (ED) Additional Instructions: follow up with your Urologist this week Referrals: Eddi Noe NP [Primary Care Provider] - 1 week
--- OUTSIDE RECORDS SUMMARY | 2025-02-03 19:25 | XMS_ITS | Encounter Summary ---
Author Organization [facility] tem Address [id number] [address] [place] [address] Care Team Providers Care Tap And Die Maker Technician Name Role Phone Niall Nunu LEWISAMY Primary Care Provider + Encounter Details DateTypeDepartmentCare Team (Latest Contact Info)Oivdwcgbbgj74/08/2025Travel Social History Tobacco UseTypesPacks/DayYears UsedDateSmoking Tobacco: FormerCigarettesQuit: 11/04/2017Smokeless Tobacco: NeverAlcohol UseStandard Drinks/WeekCommentsYes0 (1 standard drink = 0.6 oz pure alcohol)2 drinks of Absolut dailyChildcareAnswer Date XldcrcjnLickpstakYocjaxb23/12/2019EmploymentAnswerDate RecordedEmployment Agqwlik5108/01/2018Purpose - LifeAnswerDate RecordedPurpose and direction in life Bxbqvor9604/02/2020ex and Gender InformationValueDate RecordedSex Assigned at BirthNot on fileLegal NixPaot0609/25/2014 12:13 PM EDTGender IdentityNot on file Sexual OrientationNot on filedocumented as of this encounter Plan of Treatment Not on file documented as of this encounter Visit Diagnoses Not on filedocumented in this encounter Care Teams Team MemberRelationshipSpecialtyStart DateEnd Date Nunu Tierney APRN-CNP [address] [phone] PCP - GeneralNurse Practitioner05/20/24documented as of this encounter
--- OUTSIDE RECORDS SUMMARY | 2025-02-03 19:25 | XMS_ITS | Clinical Summary ---
Author Organization [facility] tem Address [id number] [address] [place] [address] Care Team Providers Care Roller Inspector And Mender Name Role Phone Nunu Tierney ROAD MARKER-TUMBLER DYEING MACHINE OPERATOR Primary Care Provider + Allergies No known active allergies Medications No known medications Encounters DateTypeDepartmentCare UbkhLctcqjkrldo95/08/2025 7:45 AM EST - 01/27/2025 11:59 PM ESTHospital Encounter [facility] [address] [place] [address] Lumbar back pain with radiculopathy affecting lower extremity Discharge Disposition: Home01/27/2025Travelfrom Last 3 Months Social History Tobacco UseTypesPacks/DayYears UsedDateSmoking Tobacco: FormerCigarettesQuit: 11/04/2017Smokeless Tobacco: NeverAlcohol UseStandard Drinks/WeekCommentsYes0 (1 standard drink = 0.6 oz pure alcohol)2 drinks of Absolut dailyChildcareAnswer Date QbmvgllaXbketvgpyVyczhct48/12/2019EmploymentAnswerDate RecordedEmployment Zntgmrg6508/01/2018Purpose - LifeAnswerDate RecordedPurpose and direction in life Hklonhx66/11/2021Sex and Gender InformationValueDate RecordedSex Assigned at BirthNot on fileLegal JgpQhka5509/25/2014 12:13 PM EDTGender IdentityNot on file Sexual OrientationNot on file Last Filed Vital Signs Vital SignReadingTime TakenCommentsBlood Enekbwer018/8803 3:14 PM EDT Dlyzb6562 3:14 PM DFKUizkkjdwvhv35.8 ??C (98.2 ??F)05/16/2018 12:30 PM EDTRespiratory Goyn357205/16/2018 3:14 PM EDTOxygen Dpcodkomqa44%05/16/2018 3:14 PM EDTInhaled Oxygen Concentration--Cvkrli55.6 kg (160 lb)05/16/2018 12:30 PM EBEOibrxa198.8 cm (5' 10 )05/16/2018 12:30 PM EDTBody Mass Index22.9605/16/2018 12:30 PM EDT Plan of Treatment Health MaintenanceDue DateLast DoneCommentsDepression Yvhjkclsh79/03/1970Tobacco Zegfnyyyi98/03/1970Adult BMI Hbfgtkuww24/03/1976DTaP,Tdap and Td Vaccines (1 - Tdap)1976Zoster (Shingles) Vaccine (1 of 2)05/24/2007Fall Risk Screening 2022OVID-19 Vaccine (3 - season)/, 09/16/2020 Influenza Yjjrcsk74/12/2023, 12/26/2022, 11/09/2019, Additional history existsRSV ( or age 60+ yrs) (1 - 1-dose 75+ series)2032 Medical Devices Not on file Procedures Procedure NamePriorityDate/TimeAssociated DiagnosisCommentsXR SPINE LUMBAR MIN 4 DSPTmhcskz10/08/2025 7:56 AM EST Lumbar back pain with radiculopathy affecting lower extremity from Last 3 Months Results * X-ray spine lumbar minimum 4 [...] on 01/27/2025 9:24 AM Authorizing ProviderResult TypeResult StatusAlyssa Tierney ROAD MARKER-CNPIMG DIAGNOSTIC IMAGING ORDERABLESFinal Result from Last 3 Months Insurance Care Teams Team MemberRelationshipSpecialtyStart DateEnd Date Nunu Tierney APRN-TUMBLER DYEING MACHINE OPERATOR [address] [place] [address] PCP - GeneralNurse Practitioner05/20/24
--- OUTSIDE RECORDS SUMMARY | 2025-02-03 19:26 | XMS_ITS | Clinical Summary ---
Author Organization [facility] Address [address], [address] [place] [address] Care Team Providers Care Drawing Hand Name Role Phone NiallNunu DEBBIE - CUSTOMER RELATIONS CONSULTANT Primary Care Provider Allergies No known active allergies Medications MedicationSigDispense QuantityRefillsLast FilledStart DateEnd DateStatus METAMUCIL FIBER PO Take by mouth dailyActive [place]-3 Fatty Acids (FISH OIL) 300 MG CAPS Take by mouthActive Multiple Vitamins-Minerals (ONE A DAY IMMUNITY DEFENSE PO) Take by mouthActive tamsulosin (FLOMAX) 0.4 MG capsule Indications:BPH with obstruction/lower urinary tract symptomsTake 1 capsule by mouth in the morning and at bedtime 180 capsule 5Active vitamin C (ASCORBIC ACID) 500 MG tablet Take 2 tablets by mouth dailyActive hydroCHLOROthiazide 12.5 MG tablet Take 1 tablet by mouth daily5Active losartan (COZAAR) 100 MG tablet Take 1 tablet by mouth daily5Active predniSONE (DELTASONE) 10 MG tablet TAKE 5 TABLETS BY MOUTH DAILY FOR 3 DAYS, then TAKE 4 TABLETS BY MOUTH DAILY FOR 3 DAYS, then TAKE 3 TABLETS BY MOUTH DAILY FOR 3 DAYS, then TAKE 2 TABLETS BY MOUTH DAILY FOR 3 DAYS, then TAKE 1 TABLET BY MOUTH DAILY FOR 3 DAYS12/09/2024 Active naproxen (NAPROSYN) 500 MG tablet TAKE 1 TABLET BY MOUTH EVERY 12 HOURS WITH FOOD OR MILK CIAKZD1912/09/2024 Active Active Problems ProblemNoted DateDiagnosed DateBPH with obstruction/lower urinary tract symptoms 05/06/2024Elevated PSA03/15/2024 Encounters DateTypeDepartmentCare MuvhIrzxpcnibwv03/04/2025 9:00 AM ESTOffice Visit [facility] [address] [place] [address] Blake Ferreira PA-C Elevated PSA (Primary Dx)12/23/2024Results Follow-Up [facility] [address] [place] [address] 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, 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 12/20/2024 6:40 AM EDT - 12/20/2024 11:59 PM EDTHospital Encounter [facility] [address] [place] [address] Elevated PSA Discharge Disposition: Home or Self Carefrom Last 3 Months Family History Medical HistoryRelationNameCommentsHeart DiseaseFatherCOPDMotherKidney Disease MotherRelationNameStatusCommentsFatherDeceasedMotherDeceased Social History Tobacco UseTypesPacks/DayYears UsedDateSmoking Tobacco: FormerCigarettesQuit: 2019Passive Smoke Exposure: CurrentSmokeless Tobacco: NeverAlcohol UseStandard Drinks/WeekCommentsYes0 (1 standard drink = 0.6 oz pure alcohol)dailySex and Gender InformationValueDate RecordedSex Assigned at BirthNot on fileLegal Sex Male12/21/2020 8:13 AM EDTGender IdentityNot on fileSexual OrientationNot on file Last Filed Vital Signs Vital SignReadingTime TakenCommentsBlood Hlvisxgs930/7611 8:55 AM EST Asjlh870912/24/2024 8:55 AM OJILtfzyzbqwov80 ??C (98.6 ??F)12/24/2024 8:55 AM EST Respiratory Rate--Oxygen Saturation--Inhaled Oxygen Concentration--Clgzge66.1 kg (192 lb)12/24/2024 8:55 AM SLQVqycrk436.8 cm (5' 10 )06/05/2024 8:22 AM EDTBody Mass Index27.55006/05/2024 8:22 AM EDT Plan of Treatment DateTypeDepartmentCare Team (Latest Contact Info)Vtcxzjdtvxd73/05/2026 9:00 AM EDTOffice Visit [facility] Part of [address] [place] [address] Blake Ferreira PAManuel [facility] [address] [place] [address] 6 months PSAHealth MaintenanceDue DateLast DoneCommentsDepression Screen 1969Hepatitis C onmvqg1005/24/1975DTaP/Tdap/Td vaccine (1 - Tdap)1976 Diabetes glzezo4805/23/19927602Nkawse55/03/0468Ihkcklkdgrc29/03/2003Colorectal Cancer Yhuyae9305/23/2002FIT/FOBT: Average risk2002Fecal-DNA (Cologuard): Average risk2002Sigmoidoscopy/CT hlwenvwirlvm77/03/2003Pneumococcal 50+ years Vaccine (1 of 1 - PCV)05/24/2007Shingles vaccine (1 of 2)05/24/2007AA screen 2022nnual Wellness Visit (Medicare Advantage)02/21/2024Flu vaccine (#1) 511/07/2022, 11/09/2019, 12/06/2018, Additional history existsCOVID-19 Vaccine ( - 2024- season)/, 1Prostate Specific Antigen (PSA) Screening or Rdvxitbwbf28, 05/15/2024, 05/11/2023, Additional history existsRespiratory Syncytial Virus (RSV) or age 60 yrs+ (1 - 1-dose 75+ series)2032Hepatitis A vaccineAged OutNo longer eligible based on patient's age to complete this topicHepatitis B vaccine Aged OutNo longer eligible based on patient's age to complete this topicHib vaccineAged OutNo longer eligible based on patient's age to complete this topic Meningococcal (ACWY) vaccineAged OutNo longer eligible based on patient's age to complete this topicMeningococcal B vaccineAged OutNo longer eligible based on patient's age to complete this topicPolio vaccineAged OutNo longer eligible based on patient's age to complete this topic Procedures Procedure NamePriorityDate/TimeAssociated DiagnosisCommentsPSA, DIAGNOSTIC Xhhspbx4912/20/2024 6:51 AM EDT Elevated PSA from Last 3 Months Results * (ABNORMAL) PSA, Diagnostic (12/20/2024 6:51 AM EDT)ComponentValueRef RangeTest MethodAnalysis TimePerformed AtPathologist SignaturePSA5.03(H)0.00 - 4.00 ng/mL12/20/2024 6:51 AM EDTMERCY LABORATORIESComment: The Jerrell ECLIA assay is used. ??Results obtained with different assay methods cannot be used interchangeably. Specimen (Source)Anatomical Location / LateralityCollection Method / Volume Collection TimeReceived TimeBLOOD SPECIMEN / Shlwvbz1612/20/2024 6:51 AM EDT 12/20/2024 6:52 AM EDT Narrative Authorizing ProviderResult TypeResult StatusBlake LANDRYHOLZER HEALTH SYSTEMEMISTRY ORDERABLESFinal ResultPerforming OrganizationAddressCity/State/ZIP CodePhone Number [facility] [address] [place] [address], [facility] [place] [phone] [facility] [address] [place] [address], [facility] [place] [phone] from Last 3 Months Insurance Care Teams Team MemberRelationshipSpecialtyStart DateEnd Date Nunu Tierney APRN - NP [address] [place] [address] PCP - GeneralNurse Practitioner05/15/24
--- OUTSIDE RECORDS SUMMARY | 2025-02-03 19:26 | XMS_ITS | Patient Health Record ---
Author Organization [facility] Address [address] [address] Care Team Providers Care Licensed Customs Broker Name Role Phone Carely Lara Unavailable [phone] Allergies No Known Allergies Reason For Referral No Information Plan Of Treatment No Information Insurance Providers Payer Name Payer Address Payer Phone Subscriber Number Group Number Insured Name Patient Relationship to Insured Coverage Start Date Coverage End Date [facility] [address] [place] [address] [id number] SALGUERO - patient is the insured
--- OUTSIDE RECORDS SUMMARY | 2025-02-03 19:26 | XMS_ITS | Clinical Summary ---
Author Organization [facility] Address [address] [place], [place] [address] Care Team Providers Care Rubber Block Layer Name Role Phone Cm Starr DO Primary Care Provider + Allergies No known active allergies Medications MedicationSigDispense QuantityRefillsLast FilledStart DateEnd DateStatus acetaminophen (TYLENOL ORAL) Take by mouth as needed.Active IBUPROFEN ORAL Take by mouth once daily.Active Social History Tobacco UseTypesPacks/DayYears UsedDateSmoking Tobacco: FormerSmokeless Tobacco: Never Comments:Pt. states he quit about 2.5yrs ago Area Deprivation IndexAnswerDate RecordedNational Score (1-100), lower number is lower riskNot on file06/25/2020tate Score (1-10), lower number is lower riskNot on file06/25/2020ata from: https://www.neighborhoodatlas.medicine.[facility].edu/. Last address used for calculationNot on file06/25/2020ex and Gender Information ValueDate RecordedSex Assigned at BirthNot on fileLegal GldUfig9406/15/2020 9:30 AM EDTGender IdentityNot on fileSexual OrientationNot on file Last Filed Vital Signs Vital SignReadingTime TakenCommentsBlood Jkexobqz707/7205 11:10 AM EDT Ysmii4140/06/2021 11:10 AM JJRQovevxbfkbw38.6 ??C (97.9 ??F)06/25/2020 11:10 AM EDTRespiratory Rate--Oxygen Qlihfxufuv57%06/25/2020 11:10 AM EDTInhaled Oxygen Concentration--Tiejin85.6 kg (180 lb)06/25/2020 11:10 AM LGNVhqaro165.8 cm (5' 10 )06/25/2020 11:10 AM EDTBody Mass Index25.8306/25/2020 11:10 AM EDT Plan of Treatment Health MaintenanceDue DateLast DoneCommentsAbdominal Aortic Aneurysm Screening 8Anxiety Uejiomqdo84/03/1976Depression Aqzqxjtbq78/03/1976Hepatitis C Qlvmxbiey76/03/1976DTaP,Tdap,Td Vaccine (1 - Tdap)1976Lipid Screening 1992CT Sztdpbypkugy25/03/2003Cologuard (FIT-DNA)2002Colonoscopy 2002Colorectal Cancer Zukbrobnw92/03/2003Fecal Occult Blood2002 Prostate Cancer Screening Ycsznqoswu47/03/3123Cznegonrsneay84/03/2003 Pneumococcal Vaccine: 50+ (1 of 1 - PCV)05/24/2007Shingrix Vaccine (1 of 2) 05/24/2007Diabetes Pyvqevjsc17Advance Directive Discussion 5Covid-19 Vaccine (1 - 2024- season)2024Influenza Vaccine (#1) 2024RSV Vaccine (1 - 1-dose 75+ series)2032 Insurance Care Teams Team MemberRelationshipSpecialtyStart DateEnd Date Cm Starr DO PCP - GeneralFamily Medicine06/15/20
--- OUTSIDE RECORDS SUMMARY | 2025-02-03 19:26 | XMS_ITS | Patient Health Record ---
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 History of hernia repair. PSA, TOTAL, 3RD GENERATION Reviewed date:04/18/2024 11:20:54 PM Interpretation: Performing Lab: Notes/Report: PSA, TOTAL 8.220 0-4.00 ng/mL H Method: Jerrell Joanna ECLIA PSA levels should not be interpreted as absolute evidence of disease, however it is widely accepted as an adjunctive test in the management of prostate cancer patients. Values obtained with different assay methods or kits can not be used interchangeably. A detectable PSA following radical prostatectomy is associated with eventual clinical disease recurrence in some, but not all patients. It may also be due to the presence of benign glands. The AUA defines biochemical recurrence as an initial PSA value >=0.2 ng/ml followed by a subsequent confirmatory PSA value >=0.2 ng/ml. UNLESS OTHERWISE INDICATED, ALL TESTING PERFORMED AT: [facility] [address] [place] [address] FREELANCE DESIGNER: JORDAN HERNANDEZ M.D. ROBIA NUMBER [id number] CAP ACCREDITATION AUID [id number] COMPREHENSIVE METABOLIC PANE L (A) Reviewed date:04/18/2024 11:20:54 PM Interpretation: Performing Lab: Notes/Report: GLUCOSE 90 70-100 mg/dL [id number] mmol/LPOTASSIUM4.53.5-5.4 mmol/IOHZUXZPL48666-036 mmol/JNQ917 18-32 mmol/BBWD929-50 mg/dLHCREATININE, BLOOD0.840.67-1.30 mg/dLeGFR (2020 CKD-EPI)96>59 mL/min/1.96w4OIBBDXN1.78.6-10.5 mg/Delvin. PROTEIN7.46.0-8.3 g/dL ALBUMIN4.63.5-5.2 g/dLGLOBULIN2.81.8-3.8 g/dLA/G RATIO1.61.0-2.5 RATIOALK PHOS66 39-118 U/REIL-ZKZB581-77 U/JVBH-XTNH456-70 U/LT. BILIRUBIN0.6<1.3 mg/dLLIPID PANEL WITH REFLEX TO DIRECT LDL Reviewed date:04/18/2024 11:20:54 PM Interpretation: Performing Lab: Notes/Report:TXREKMMDFAI862569-880 mg/jZCMTIXPJNNSSPLV3377-505 mg/dLVLDL-CHOL, CALCULATED7<30 mg/dLHDL-VDOO670>=40 mg/dLLDL-CHOL, VMIYZQJMZJ568<130 mg/dL ADULT LDL CHOLESTEROL CLASSIFICATION <100mg/dL Optimal 100-129mg/dL Near/Above Optimal 130-159mg/dL Borderline High >160mg/dL High Risk Desirable range <100 mg/dL for patients with CHD or diabetes and <70 mg/dL for diabetic patients with known heart disease. Direct LDL is recommended for patients with triglycerides >400. LDL/HDL0.9<5.0 LDL/HDL RATIO MALE FEMALE below average risk <2.3 <2.3 average risk <5.0 <4.1 moderate risk <7.1 <5.6 high risk >7.1 >5.6 CHOL/HDL1.92.0-4.5L Reason For Referral No Information Medications Medication SIG (Take, Route, Frequency, Duration) Notes Start Date End Date Status predniSONE 50 MG Tablet 1 tablet with fo od or milk Orally Once a day; Duration: 5 days 5ActivehydroCHLOROthiazide 12.5 MG Tablet1 tablet in the morning Orally Once a day; Duration: 90 daysActiveCyclobenzaprine HCl 10 MG Tablet1 tablet at bedtime as needed Orally Once a day; Duration: 30 day(s)12/09/2024Not-Taking/PRN Tamsulosin HCl 0.4 MG Capsule2 capsules in the morning, 1 capsule in the evening Orally; Duration: 90 daysActiveMupirocin 2 % Ointment1 application Externally Twice a day; Duration: 5 days07/25/2023ctiveMetamucil 3 in 1 Daily Fiber 400 MG Capsuleas directed OrallyActiveVitamin CActiveNaproxen 500 MG Tablet1 tablet with food or milk as needed Orally every 12 hrs; Duration: 30 days12/09/2024 ActiveFish OilActiveLosartan Potassium 100 MG Tablet1 tablet Orally Once a day; Duration: 90 daysActiveMultivitamin - Tablet1 tablet Orally Once a dayActive Immunizations Vaccine Route Administration Date Status Comme nts *Drapkvgme-Fqnoagdsm-Ioojh te IM Intramuscular 12/26/2022 Administered Social History Tobacco Use: Social History Observation Description Date Details (start date - stop date) Former Smoker 03/16/1976 - 09/13/2009 Sex Assigned At : Social History Observation Description Sex Assigned At Male Social History Social DeterminantsSocial InfoQuestionAnswerNotesPRAPAREDate Completed/Updated: 03/18/2024patient entered dataWhat is your current housing situation?I have housingpatient entered dataAre you worried about losing your housing?No patient entered dataWhat is the highest level of school that you have finished?High school diploma or GEDpatient entered dataWhat is your current 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 (For example: talkingto friends on the phone, visiting friends or family, going to evangelical or club meetings)More than 5 times a weekpatient entered dataHow stressed are you? Stress is when someone feels tense, nervous, anxious, or can't sleep at nightbecause their mind is troubledNot at allpatient entered dataIn the past year have you spent more than 2 nights in a row in a retirement, [place], fdc center, orjuvenile correctional facility?Nopatient entered dataAre you a refugee?Nopatient entered dataWhat country are you from?[place]patient entered dataDo you feel physically and emotionally safe where you currently live?Yespatient entered dataIn the past year, have you been afraid of your partner or ex-partner?Nopatient entered dataPRAPARE Score:3Sexual History:Social Info QuestionAnswerNotesFamily PlanningAre you or your partner planning on becoming in the next year if not already ?Choose not to disclosePCMH and UDS DemographicsSocial InfoQuestionAnswerNotesPriKansas City [facility] QuestionsDo you have any barriers to learning?Nonepatient entered dataWhat is your preferred method of learning?Readingpatient entered dataHow often do you need to have someone help you read instructions?Neverpatient entered data Drugs/Alcohol/Caffeine:Social InfoQuestionAnswerNotesCAGE-AID Questionnaire (2018 Edition)Have you ever felt that you ought to cut down on your drinking or drug use?Yespatient entered dataHave people annoyed you by criticizing your drinking or drug use?Nopatient entered dataHave you ever felt bad or guilty about your drinking or drug use?Nopatient entered dataHave you ever had a drink or used drugs first thing in the morning to steady your nerves or to get r id of a hangover?Nopatient entered dataCAGE-AID Bpury0TohbtrgluajrvsRejkdmju Subtance AbuseTobacco Use:Social InfoQuestionAnswerNotesTobacco Use/Smoking Tobacco use:former smokerpatient entered data? When did you start smoking? 03/16/1976patient entered data? When did you stop smoking?09/13/2009 patient entered data? How long has it been since you last smoked?> 10 years patient entered data Problems Problem Type SNOMED Code ICD Code Onset Dates Problem Status W/U Status Risk Notes Problem Essential hypertension (18329173) Essenti al hypertension (I10) ActiveconfirmedProblemLower urinary tract symptoms due to benign prostatic hypertrophy (10899704330052)Benign prostatic hyperplasia with lower urinary tract symptoms (N40.1)ActiveconfirmedProblemGastroesophageal reflux disease (812915856)GERD without esophagitis (K21.9)ActiveconfirmedProblemLumbar radiculopathy (545469854)Lumbar back pain with radiculopathy affecting lower extremity (M54.16)ActiveconfirmedProblemCarpal tunnel syndrome of right wrist (249057577544126)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)Activeconfirmed Vital Signs Heart Rate 72 /min 01/27/2025 Coleen Ser vando 01/27/2025 07:17:50 AM EST > Temperature 98.0 degrees Fahrenheit 01/27/2025 Melvin cody Wilton 01/27/2025 07:17:50 AM EST > Respiratory Rate 18 /min 01/27/2025 Coleen Wilton 01/27/2025 07:17:50 AM EST > Blood pressure diastolic 84 mm Hg 01/27/2025 Jeri doarmand Wilton 01/27/2025 07:17:50 AM EST > Oximetry 98 % 01/27/2025 Horne, Ser vando 01/27/2025 07:17:50 AM EST > Height-cm 172.72 cm 01/27/2025 Horne, Ser vando 01/27/2025 07:17:50 AM EST > Weight-kg 85.73 kg 01/27/2025 Horne, Ser vando 01/27/2025 07:17:50 AM EST > Height 68 in 01/27/2025 Horne, Ser vando 01/27/2025 07:17:50 AM EST > Blood pressure systolic 137 mm Hg 01/27/2025 Wilton Cooper 01/27/2025 07:17:50 AM EST > Weight 189 lbs 01/27/2025 Tate Horne 01/27/2025 07:17:50 AM EST > BMI 28.73 kg/m2 01/27/2025 Tate Horne 01/27/2025 07:17:50 AM EST > Encounters Encounter Location Date Provider Diagnosis Main [address] [place], [place] [id number] 02/15/2024 Nunu Niall Essential hypertensi on I10 ; Benign prostatic hyperplasia with lower urinary tract symptoms N40.1 ; GERD without esophagitis K21.9 ; Overweight E66.3 and Body mass index [BMI] 28.0-28.9, adult Z68.28 Main [address] [place] [id number] 03/18/2024 Nunu Niall Essential hypertensi on I10 ; Benign prostatic hyperplasia with lower urinary tract symptoms N40.1 ; Overweight E66.3 and Body mass index [BMI] 28.0-28.9, adult Z68.28 Main [address] [place], [place] [id number] 04/16/2024 Nunu Niall Essential hypertensi on I10 ; Benign prostatic hyperplasia with lower urinary tract symptoms N40.1 ; Overweight E66.3 and Body mass index [BMI] 28.0-28.9, adult Z68.28 [address] [facility] [place] [id number] 05/14/2024 Nunu Niall Essential hypertensi on I10 ; Right groin pain R10.31 ; Overweight E66.3 and Body mass index [BMI] 29.0-29.9, adult Z68.29 Main [address] [facility] [place] [id number] 11/11/2024 Nunu Niall Essential hypertensi on I10 ; Benign prostatic hyperplasia with lower urinary tract symptoms N40.1 ; Overweight E66.3 and Body mass index [BMI] 27.0-27.9, adult Z68.27 [address] [facility] [facility] [place] [id number] 12/09/2024 Nunu Niall Overweight E66.3 ; L umbar back pain M54.50 and Body mass index [BMI] 27.0-27.9, adult Z68.[address] [place], [place] [id number] 01/27/2025 [facility] Lumbar back pain wit h radiculopathy affecting lower extremity M54.16 ; Essential hypertension I10 ; Overweight E66.3 and Body mass index [BMI] 28.0-28.9, adult Z68.[address] [place], [place] [id number] 03/21/2024 [facility] Essential hypertensi on I10 Main [address] [place] [id number] 04/18/2024 [facility] [id number] [place], [place] [id number]/[facility] CenterEpccyziOsst[address] [place], [place] [id number]/[facility] CenterEssential hypertension J18Wlyj [address] [place], [place] [id number]/lysCascade Medical CenterEssential hypertension E66Dine[address] [place], [place] [id number]/Komal Maikel Tnfs[address] [place], [place] [id number]/Komal TbmcoiCzyg[address] [place], [place] [id number]/17/2025[facility] Medical CenterBenign prostatic hyperplasia with lower urinary tract symptoms N40.5Gocg[address] [place], [place] [id number] 01/28/2025[facility] Assessments Encounter Date Diagnosis (ICD Code) Assessment Notes Treatment Notes Treatment Clinical Notes Section Notes 02/15/2024 Essential hypertension (ICD-10 - I10) Pt continues to have elevated BP's in-office and in home values he brought in. Pt encouraged to continue checking BP's at home. Increased pt's Losartan to 100mg (from 50mg). F/U 1 month or PRN 02/15/2024enign prostatic hyperplasia with lower urinary tract symptoms (ICD-10 - N40.1) Pt encouraged to schedule w/ Urologist in [place]. Pt's PSA last checked in December decreased to the 9's from 11's Increased pt's Flomax today d/t how he is currently taking it. 2AM, 1PM F/U 3 months or PRN to repeat PSA 03/18/2024Essential hypertension (ICD-10 - I10) Pt's home values are WNL, scanned into pt chart, values in-office are slightly elevated at today's appt Pt denies any symptoms. D/C'ing pt's Losartan 100mg RX sent for Losartan/HCTZ 100-25mg 1QD at this time Pt provided w/ BP log to check at home F/U 1 month or PRN 5Benign prostatic hyperplasia with lower urinary tract symptoms (ICD-10 - N40.1) Pt following w/ Urology, last appt was 03/15/24. Pt continuing Flomax at this time. Pt reports Urologist desires to do biopsy of his prostate, pt denies any urinary symptoms. Pt has not had imaging of his Prostate yet and desires that prior to biopsy if warranted Pt encouraged to contact office for this. 03/21/2024Essential hypertension (ICD-10 - I10)04/16/2024Essential hypertension (ICD-10 - I10) Continuing pt Losartan 100mg 1QD. RX sent for HCTZ 12.5mg to take in addition to Losartan 100mg at this time. Pt denies any symptoms. F/U 1 month or PRN Pt to complete labs & will call pt w/ results. 5Benign prostatic hyperplasia with lower urinary tract symptoms (ICD-10 - N40.1) Pt follows w/ Urology. Next appt is Next Monday, pt desires an MRI prior to biopsy of his prostate. Pt reported Urologist wanted to biopsy prior to imaging it. Pt desires repeat labs of PSA, will call pt w/ results. 05/14/2024Right groin pain (ICD-10 - R10.31) [facility] Imaging of Right groin at this time to assess for inguinal hernia Pt has had in the past Will call pt w/ results and consider general surgery referral if inguinal hernia is noted. F/U PRN 05/27/2024Essential hypertension (ICD-10 - I10)09/10/2024Essential hypertension (ICD-10 - I10)05/14/2024Essential hypertension (ICD-10 - I10)HTN stable. Will continue current medications. Encouraged healthy diet and exercise. F/u 6 months & PRN11/11/2024Essential hypertension (ICD-10 - I10) HTN stable. Will continue current medications. Encouraged healthy diet and exercise. F/u 6 months & PRN Ordered labs for pt to complete prior to next appt 11/11/2024enign prostatic hyperplasia with lower urinary tract symptoms (ICD-10 - N40.1) Pt follows w/ Urology at this time, appt once a year, last appt a few months ago Ordered labs for pt to complete prior to next appt 12/09/2024Overweight (ICD-10 - E66.3)12/09/2024Lumbar back pain (ICD-10 - M54.50) Pt has pain in lumbar back Pt advised to use ice and/or moist heat as needed Encouraged pt to take Naproxen and Prednisone taper May be used in tandem for pain relief every 4 hours. F/U PRN, pt will call if back continues to bother him Will send XR Lumbar spine if needed 01/06/2025enign prostatic hyperplasia with lower urinary tract symptoms (ICD-10 - N40.1)01/27/2025Essential hypertension (ICD-10 - I10) Hypertension is stable at this time. Continue current medications. Encouraged healthy diet and exercise. F/U 3 months & PRN 01/27/2025Lumbar back pain with radiculopathy affecting lower extremity (ICD-10 - M54.16) [...] pain does not resolve w/ symptomatic management. 01/27/2025Overweight (ICD-10 - E66.3)12/09/2024ody mass index [BMI] 27.0-27.9, adult (ICD-10 - Z68.27)11/11/2024Overweight (ICD-10 - E66.3)05/14/2024Overweight (ICD-10 - E66.3)04/16/2024Overweight (ICD-10 - E66.3)02/15/2024GERD without esophagitis (ICD-10 - K21.9)GERD stable. Will continue current medications. F/u 3 months & PRN03/18/2024Overweight (ICD-10 - E66.3)03/18/2024ody mass index [BMI] 28.0-28.9, adult (ICD-10 - Z68.28)02/15/2024Overweight (ICD-10 - E66.3) 04/16/2024ody mass index [BMI] 28.0-28.9, adult (ICD-10 - Z68.28)11/11/2024ody mass index [BMI] 27.0-27.9, adult (ICD-10 - Z68.27)05/14/2024ody mass index [BMI] 29.0-29.9, adult (ICD-10 - Z68.29)5Body mass index [BMI] 28.0- 28.9, adult (ICD-10 - Z68.28)4Body mass index [BMI] 28.0-28.9, adult (ICD-10 - Z68.28) Plan Of Treatment Future Test Test Name Order Date LIPID PANEL WITH REFLEX TO DIRECT LDL CBC W/AUTO DIFF 04/20/2025 PSA, TOTAL, 3RD GENERATION 04/20/2025 COMPREHENSIVE METABOLIC PANEL (AMA) 02/2025 Next Appt Details Provider Name:Nunu Tierney , 05/12/2025 07:30:00 AM, [address], [place], [id number], Insurance Providers Payer Name Payer Address Payer Phone Subscriber Number Group Number Insured Name Patient Relationship to Insured Coverage Start Date Coverage End Date [place] [employer] [address] [place] [phone] [id number] [facility] 0 Franki Tinoco Self - patient is the insured 3 Medical (General) History Medical History History ICD Code BPH (benign prostatic hyperplasia) N40.0 Hypertension Surgical History Surgery Date(Month/Year) double hernia surgery 2007 hemorrhoidectomy 12/2022 Hospitalization History Reason Date(Month/Year) See Above
== END 2025-02-03 19:49 | disposition home or self-care (01) ==
PROVIDERS: Emergency Provider Internal Medicine; PCP Nurse Practitioner Primary Care
DX: R33.9 Retention of urine, unspecified (principal); F17.200 Nicotine dependence, unspecified, uncomplicated
CPT/HCPCS: 51702; 99284

== ENCOUNTER 2025-02-17 17:52 | Emergency (ER) | payer MEDICARE, SELFPAY ==
--- OUTSIDE RECORDS SUMMARY | 2024-11-14 03:30 | XMS_ITS ---
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 Name Role Phone Nunu Tierney Primary Care Provider REASON FOR VISIT 6 month HTN, BPH Social History Sex Assigned At : Social History Observation Description Sex Assigned At Male Encounters Encounter Location Date Provider Diagnosis Main [address] [place] [phone] 11/14/2024 Nunu Tierney Plan Of Treatment Next Appt Details Provider Name:Nunu Tierney , 05/12/2025 07:30:00 AM, [address] [place], [phone], Progress Notes * Franki SALGUERO BDOB:[birth year] (69 yo M)Acc No.[id number]:11/14/2024 Medical Note Patient: Franki Pino :?Nunu NiallDOB:1955???Age:69 Y???Sex: MaleDate:11/14/2024Phone:[phone]:[address] [place] [id number] Subjective: * Chief Complaints: * 6 month HTN, BPH * Electronic signature of TALIA Richey on 02/17/2025 at 08:00 AM ESTSign off status: Pending * Provider: Umang Tierney Date: 0 11/14/2024 Generated for Printing/Faxing/eTransmitting on:?02/17/2025 08:00 AM EST
--- OUTSIDE RECORDS SUMMARY | 2025-02-06 09:15 | XMS_ITS | Encounter Summary ---
Author Organization [facility] Address [address], [address] [place] [address] Care Team Providers Care Windshield Wiper Repairer Name Role Phone NiallNunu DRYING TUMBLER OPERATOR - DIRECTOR PRINT Primary Care Provider Reason for Visit * ReasonCommentsFollIftikhar went to ER in [place] on 02/03/2025 for difficulty urinating. He states he does have leaking around the catheter. Some blood in his urine, some pain with voiding into the bag. Encounter Details DateTypeDepartmentCare Team (Latest Contact Info)Wudyrvnqsqo03/18/2025 9:15 AM ESTOffice Visit [facility] Part of [address] [place] [address] Reshma Duffy, DRYING TUMBLER OPERATOR - PLANT OPERATIONS VICE PRESIDENT [address] [place] [address] [address] [place] [address] BPH with obstruction/lower urinary tract symptoms (Primary Dx); Urinary retention Social History Tobacco UseTypesPacks/DayYears UsedDateSmoking Tobacco: FormerCigarettesQuit: 2019Passive Smoke Exposure: CurrentSmokeless Tobacco: Never Tobacco Cessation:Counseling Given: Not Answered Alcohol UseStandard Drinks/WeekCommentsYes0 (1 standard drink = 0.6 oz pure alcohol)dailySex and Gender InformationValueDate RecordedSex Assigned at Not on fileLegal EneLies96/01/2021 8:13 AM EDTGender IdentityNot on fileSexual OrientationNot on filedocumented as of this encounter Last Filed Vital Signs Vital SignReadingTime TakenCommentsBlood Tfzlsezu245/6802/06/2025 9:00 AM EST Pulse--Spbjbaulyfy65.5 ??C (97.7 ??F)02/06/2025 9:00 AM ESTRespiratory Rate-- Oxygen Saturation--Inhaled Oxygen Concentration--Zbrjtg99.3 kg (188 lb) 02/06/2025 9:00 AM VWDWsoiaw074.8 cm (5' 10 )02/06/2025 9:00 AM ESTBody Mass Index26.9802/06/2025 9:00 AM ESTdocumented in this encounter Patient Instructions * Patient Instructions* Ozzy Bennett MA - 02/06/2025 8:55 AM EST SURVEY: You may be receiving a survey from [employer] regarding your visit today. Please complete the survey to enable us to provide the highest quality of care to you and your family. If you cannot score us a very good on any question, please call the office to discuss how we could of made your experience a very good one. Thank you. documented in this encounter Progress Notes * Ozzy Bennett MA - 02/06/2025 9:29 AM EST Pt had augustin catheter placed on 02/03/2025 for Urinary retention. Balloon deflated on catheter and catheter removed. Patient tolerated procedure well. Pt instructed to drink plenty of fluids, try to urinate q 2 hrs, call office in 6 hrs with update of amount voided, and if not voiding will need to return to office to have augustin replaced. Also instructed to return to office or ER if goes >6 hrs without voiding or has strong urge to void/suprapubic discomfort and cannot urinate. Pt verbalizes understanding of plan. F/u next available for a cystoscopy * Reshma Duffy APRN - AMY - 02/06/2025 8:59 AM EST HPI: Patient is a 69 y.o. male in no acute distress. He is alert and oriented to person, place, and time. History emergency department for difficulty urinating and urinary retention. He did have a Augustin catheter placed. This was eventually removed within the week. He is taking Flomax twice per day. He was released from his prior urologist for not complying with a recommended prostate biopsy. PSA 12/2024 - 5.03 04/2024 - 8.77 04/2023 - 8.10 02/2023 - 11.8 12/2022 - 13.44 04/2023 scheduled for prostate biopsy, but he canceled this appointment and was lost to follow-up 05/2024 prostate MRI-no suspicious lesions, no osseous lesions or lymphadenopathy, prostate volume 86 mL Today Patient was seen in the emergency room in [place] on 02/03/2025 for urinary retention. Augustin catheter was placed 900 cc was obtained. Patient is here today for follow-up. He continues to take Flomaxtwice daily. Patient states he did have some leaking around the catheter and some discomfort. Did see some blood in the urine in the Augustin bag. Past Medical History: Diagnosis Date Acute hemorrhoid Past Surgical History: Procedure Laterality Date SURGERY FOR CONGENITAL HERNIA Outpatient Encounter Medications as of 02/06/2025 Medication Sig Dispense Refill predniSONE (DELTASONE) 10 MG tablet TAKE 5 TABLETS BY MOUTH DAILY FOR 3 DAYS, then TAKE 4 TABLETS BY MOUTH DAILY FOR 3 DAYS, then TAKE 3 TABLETS BY MOUTH DAILY FOR 3 DAYS, then TAKE 2 TABLETS BY MOUTH DAILY FOR 3 DAYS, then TAKE 1 TABLET BY MOUTH DAILY FOR 3 DAYS naproxen (NAPROSYN) 500 MG tablet TAKE 1 TABLET BY MOUTH EVERY 12 HOURS WITH FOOD OR MILK NEEDED vitamin C (ASCORBIC ACID) 500 MG tablet Take 2 tablets by mouth daily hydroCHLOROthiazide 12.5 MG tablet Take 1 tablet by mouth daily losartan (COZAAR) 100 MG tablet Take 1 tablet by mouth daily tamsulosin (FLOMAX) 0.4 MG capsule Take 1 capsule by mouth in the morning and at bedtime 180 capsule 0 Foster-3 Fatty Acids (FISH OIL) 300 MG CAPS Take by mouth Multiple Vitamins-Minerals (ONE A DAY IMMUNITY DEFENSE PO) Take by mouth METAMUCIL FIBER PO Take by mouth daily No facility-administered encounter medications on file as of 02/06/2025. Current Outpatient Medications on File Prior to Visit Medication Sig Dispense Refill predniSONE (DELTASONE) 10 MG tablet TAKE 5 TABLETS BY MOUTH DAILY FOR 3 DAYS, then TAKE 4 TABLETS BY MOUTH DAILY FOR 3 DAYS, then TAKE 3 TABLETS BY MOUTH DAILY FOR 3 DAYS, then TAKE 2 TABLETS BY MOUTH DAILY FOR 3 DAYS, then TAKE 1 TABLET BY MOUTH DAILY FOR 3 DAYS naproxen (NAPROSYN) 500 MG tablet TAKE 1 TABLET BY MOUTH EVERY 12 HOURS WITH FOOD OR MILK NEEDED vitamin C (ASCORBIC ACID) 500 MG tablet Take 2 tablets by mouth daily hydroCHLOROthiazide 12.5 MG tablet Take 1 tablet by mouth daily losartan (COZAAR) 100 MG tablet Take 1 tablet by mouth daily tamsulosin (FLOMAX) 0.4 MG capsule Take 1 capsule by mouth in the morning and at bedtime 180 capsule 0 Foster-3 Fatty Acids (FISH OIL) 300 MG CAPS Take by mouth Multiple Vitamins-Minerals (ONE A DAY IMMUNITY DEFENSE PO) Take by mouth METAMUCIL FIBER PO Take by mouth daily No current facility-administered medications on file prior to visit. Patient has no known allergies. Family History Problem Relation Age of Onset Heart Disease Father COPD Mother Kidney Disease Mother Social History Tobacco Use Smoking Status Former Current packs/day: 0.00 Types: Cigarettes Quit date: 2018 Years since quittin.9 Passive exposure: Current Smokeless Tobacco Never Social History Substance and Sexual Activity Alcohol Use Yes Comment: daily There were no vitals taken for this visit. PHYSICAL EXAM: Constitutional: Patient in no acute distress; Neuro: alert and oriented to person place and time. Psych: Mood and affect normal. Skin: Normal Lungs: Respiratory effort normal Lab Results Component Value Date BUN 21 05/15/2024 Lab Results Component Value Date CREATININE 0.8 05/15/2024 Lab Results Component Value Date PSA 5.03 (H) 12/20/2024 PSA 8.77 (H) 05/15/2024 PSA 8.10 (H) 05/11/2023 ASSESSMENT: Diagnosis Orders 1. BPH with obstruction/lower urinary tract symptoms 2. Urinary retention PLAN: Continue Flomax twice a day. We will go ahead and remove Augustin today, patient understands to increase fluids to 80 ounces of water and attempt to urinate every 2 hours. [facility] [place] [facility] need to return to an emergency room if he cannot urinate. We will follow-up here in the office with a cystoscopy to determine if definitive treatment is needed for BPH and urinary retention. documented in this encounter Plan of Treatment DateTypeDepartmentCare Team (Latest Contact Info)Wjdpovkvviv85/12/2026 10:00 AM ESTClinical Support [facility] [place] [phone] Reshma Duffy APRN - PLANT OPERATIONS VICE PRESIDENT [address] [place] [address] [address] [place] [address] PVR03/10/2025 11:15 AM ESTProcedure visit [facility] Part [address] [place] [address] Cm Pugh MD [address] [place] [phone] cysto06/24/2025 9:00 AM EDTOffice Visit [address] [place] [address] Blake Ferreira, PA-C [address] [place] [address] [address] [place] [address] 6 months PSAdocumented as of this encounter Visit Diagnoses Diagnosis BPH with obstruction/lower urinary tract symptoms- Primary Hypertrophy of prostate with urinary obstruction and other lower urinary tract symptoms (LUTS) Urinary retention Retention of urine, unspecified documented in this encounter Care Teams Team MemberRelationshipSpecialtyStart DateEnd Date Nunu Tierney APRN - NP [address] [place] [address] PCP - GeneralNurse Practitioner05/15/24documented as of this encounter
--- OUTSIDE RECORDS SUMMARY | 2025-02-17 08:15 | XMS_ITS | Encounter Summary ---
Author Organization [facility] Address [address], [address] [place] [address] Care Team Providers Care Highway Engineer Name Role Phone NiallNunu hernandez PATTERN MOLDER - YOUTH LEADER Primary Care Provider Reason for Visit * ReasonCommentscatheter removalThe patient is here for a nurse visit only for catheter removal. Encounter Details DateTypeDepartmentCare Team (Latest Contact Info)Hkwhlyugvoa73/29/2025 8:15 AM ESTClinical Support [facility] Part of [address] [place] [address] Reshma Duffy, PATTERN MOLDER - LITHOPLATE MAKER [address] [place] [address] [address] [place] [address] Urinary retention (Primary Dx) Social History Tobacco UseTypesPacks/DayYears UsedDateSmoking Tobacco: FormerCigarettesQuit: 2019Passive Smoke Exposure: CurrentSmokeless Tobacco: NeverAlcohol UseStandard Drinks/WeekCommentsYes0 (1 standard drink = 0.6 oz pure alcohol)dailySex and Gender InformationValueDate RecordedSex Assigned at BirthNot on fileLegal Sex Male12/21/2020 8:13 AM EDTGender IdentityNot on fileSexual OrientationNot on filedocumented as of this encounter Last Filed Vital Signs Vital SignReadingTime TakenCommentsBlood Lfsrvzad005/8102/17/2025 8:06 AM EST Ucowj272702/17/2025 8:06 AM FJOIqcdbdjbsqv13.5 ??C (97.7 ??F)02/17/2025 8:06 AM ESTRespiratory Rate--Oxygen Saturation--Inhaled Oxygen Concentration--Abyumi45.5 kg (184 lb)02/17/2025 8:06 AM ESTHeight--Body Mass Index26. 9:00 AM ESTdocumented in this encounter Patient Instructions * Patient Instructions* Zuleima Yoder LPN - 02/17/2025 8:05 AM EST SURVEY: You may be receiving a survey from [email or web address] regarding your visit today. Please complete the survey to enable us to provide the highest quality of care to you and your family. If you cannot score us a very good on any question, please call the office to discuss how we could have made your experience a very good one. Thank you. documented in this encounter Progress Notes * Zuleima Yoder LPN - 02/17/2025 3:15 PM EST The patient called the office later in the afternoon and advised that he has been urinating ok. He has voiced 5 times since he was seen here last. He still has some burning with urination but he was advised this was normal after catheter removal and to continue to void every 2 hours while awake andcontinue with adequate water intake. He was advised to keep us posted of any changes, he voiced an understanding. * Zuleima Yoder LPN - 02/17/2025 8:05 AM EST Pt had augustin catheter placed on 02/07/2025 in [place] for Urinary Retention. Balloon deflated on catheter and catheter removed. [...] and cannot urinate. Pt verbalizes understanding of plan He will follow up in 2 weeks for PVR documented in this encounter Plan of Treatment DateTypeDepartmentCare Team (Latest Contact Info)Gmbvfrijwhz74/12/2026 10:00 AM ESTClinical Support [facility] Part [address] [place] [address] Reshma Duffy APRN - LITHOPLATE MAKER [address] [place] [address] [address] [place] [address] PVR03/10/2025 11:15 AM ESTProcedure visit [facility] Part [address] [place] [address] Cm Pugh MD [address] [place] [phone] cysto06/24/2025 9:00 AM EDTOffice Visit [facility] Part [address] [place] [address] Blake Ferreira, PA-C [address] [place] [address] [address] [place] [address] 6 months PSAdocumented as of this encounter Visit Diagnoses Diagnosis Urinary retention- Primary Retention of urine, unspecified documented in this encounter Care Teams Team MemberRelationshipSpecialtyStart DateEnd Date Nunu Tierney APRN - YOUTH LEADER [address] [place] [address] PCP - GeneralNurse Practitioner05/15/24documented as of this encounter
[2025-02-17 18:08] VITALS: BP 133/90; PULSE 105; TEMP 36.4; O2SAT 95; BMI 26.5
--- NOTE | 2025-02-17 18:48 | ED_ITS ---
HPI - Male Genitourinary General Chief complaint: Urogenital-Male Stated complaint: urine issue Time Seen by Provider: 02/17/25 18:24 Source: patient and family () Mode of arrival: walk-in Limitations: no limitations History of Present Illness HPI Narrative: 69-year-old male presents to the emergency department with with complaint of urinary retention. Had Augustin catheter removed at 11 AM this morning. Has developed the retention during course. Complains of pressure, distention. states unsure why he has urinary retention. The urinary retention has been going on since 2022. He recently had requested removal of the Augustin catheter to go hunting. However, he had to present to a nearby hospital to have it replaced. Denies any fever, chills, nausea, vomiting. Quality:?as above Severity:?moderate Timing:?as above Context: Normal setting and activity? Modifying factors:?as above Associated symptoms: as above Related Data Home Medications ?Medication ?Instructions ?Recorded ?Confirmed tamsulosin 0.4 mg capsule 0.4 mg PO DAILY 12/05/22 hydrochlorothiazide 12.5 mg tablet mg 02/03/25 losartan 100 mg tablet mg 02/03/25 naproxen 500 mg tablet mg 02/03/25 Previous Rx's ?Medication ?Instructions ?Recorded oxybutynin chloride 5 mg 5 mg PO DAILY #14 tabs 12/06 tablet,extended release 24 hr Allergies Allergy/AdvReac Type Severity Reaction Status Date / Time No Known Drug Allergies Allergy Verified 02/17/25 18:08 Review of Systems ROS Narrative CONST: Denies any fever, chills RESP: Denies any shortness of breath CV: Denies any chest pain GI: +suprapublic abd pain.? Denies nausea, vomiting, diarrhea. : + difficulty urinating. Denies any flank pain, dysuria MS: Denies any back pain, myalgias SKIN: Denies any color change, rash NEURO: Denies numbness, weakness PSYCHIATRIC: Denies confusion, agitation PFSH PFSH Social History Smoking status: Current every day smoker Little interest or pleasure in doing things: not at all Feeling down, depressed, or hopeless: not at all Exam Narrative Exam Narrative: Vital signs reviewed Nurses notes noted CONST: Nontoxic, well appearing, well nourished, in no distress.? No diaphoresis.?? HENT: normocephalic, atraumatic, moist mucous membrane, no abnormalities of the nose noted, hearing normal CV: normal rate, regular rhythm, no murmur RESP: normal effort, speaking in complete sentences. Lung sounds clear and equal bilat.? No wheezes, rales, rhonchi GI: augustin placed prior to initial evaluation and patient feeling better. Soft, no distension, nontender : + Patient developing hypospinatus. No CVA tenderness MS: no edema, tenderness SKIN: no pallor NEURO: A&Ox 3, no focal findings PSYCH: normal mood, affect Constitutional Vital Signs, click to edit/add: Last Vital Signs Temp 97.6 F 02/17/25 18:08 Pulse 78 02/17/25 19:53 Resp 18 02/17/25 19:53 BP 136/89 02/17/25 19:53 Pulse Ox 97 02/17/25 19:53 O2 Del Method Room Air 02/17/25 19:53 Course Vital Signs Vital signs: Vital Signs Temperature 97.6 F 02/17/25 18:08 Pulse Rate 105 H 02/17/25 18:08 Respiratory Rate 20 02/17/25 18:08 Blood Pressure 133/90 02/17/25 18:08 Pulse Oximetry 95 02/17/25 18:08 Oxygen Delivery Method Room Air 02/17/25 18:08 Temperature 97.6 F 02/17/25 18:08 Pulse Rate 78 02/17/25 19:53 Respiratory Rate 18 02/17/25 19:53 Blood Pressure 136/89 02/17/25 19:53 Pulse Oximetry 97 02/17/25 19:53 Oxygen Delivery Method Room Air 02/17/25 19:53 MDM - Male Genitourinary MDM Narrative Medical decision making narrative: This is a pleasant 69-year-old male who presents to the emergency department for evaluation of urinary retention. Has chronic history of this. On arrival, afebrile, vitals stable Exam, nontoxic, well-appearing patient in no distress. Augustin catheter had been placed prior to initial evaluation patient appears comfortable. Heart regular rate and rhythm. Lung sounds clear and equal bilaterally. Abdomen soft, nontender. Favor acute urinary retention Urinary tract infection less likely based on urinalysis History and Record Review Discussion with independent historian: Re-Evaluation + feeling better after cath placement Disposition ? The patient was discharged. Plan: Patient will be discharged to home.? Condition at time of disposition: stable, improved.? Advised to follow up with his urologist. Advised to return for any worsening and/or development of new, concerning signs or symptoms PLEASE NOTE: Portions of the medical record may have been produced using electronic transportation modeler and may contain errors with respect to translation of words which may not have been identified prior to finalization of the chart. Lab Data Attestation: I reviewed the patient's lab results. Labs: Lab Results 02/17/25 Range/Units 18:20 Urine Color Lt. yellow (YELLOW) Urine Clarity Clear (CLEAR) Urine pH 6.0 (5.0-9.0) Ur Specific [place] <=1.005 A (1.005-1.025) Urine Protein Negative (NEG/TRACE) mg/dL Urine Glucose (UA) Negative (NEGATIVE) mg/dL Urine Ketones Negative (NEGATIVE) mg/dL Urine Occult Blood Small A (NEGATIVE) Urine Nitrite Negative (NEGATIVE) Urine Bilirubin Negative (NEGATIVE) Urine Urobilinogen 0.2 (0.2-1.0) EU/dL Ur Leukocyte Esterase Trace A (NEGATIVE) Urine RBC 2-5 A (0-2) #/HPF Urine WBC 5-10 A (NONE SEEN) #/HPF Ur Squamous Epith Cells None seen (NONE/RARE) #/LPF Urine Crystals None seen (None Seen) #/HPF Urine Bacteria None seen (NONE SEEN) #/HPF Urine Casts None seen (NONE SEEN) #/LPF Urine Mucus None seen (NONE SEEN) Ur Culture Indicated? [place] [place] Plan Discharge Chief Complaint: Urogenital-Male Clinical Impression: Acute urinary retention, Traumatic injury of urethra Patient Disposition: Home, Self-Care Time of Disposition Decision: 19:00 Mode of Transportation: Private Vehicle Prescriptions / Home Meds: No Action oxybutynin chloride 5 mg tablet extended release 24hr 5 mg PO DAILY Qty: 14 0RF losartan 100 mg tablet naproxen 500 mg tablet hydrochlorothiazide 12.5 mg tablet tamsulosin 0.4 mg capsule 0.4 mg PO DAILY Print Language: Azeri Instructions: Urinary Retention in Men (ED) Additional Instructions: Discharge Instructions: Urethral Injury from Augustin Catheter What Happened You experienced an injury to your urethra (the tube that carries urine from your bladder out of your body) during placement of a urinary catheter. This injury has caused damage to the urethral tissue. Your Current Treatment You currently have a urinary catheter in place to allow your urethra to heal. This catheter will need to remain in place as directed by your urologist. Do not attempt to remove the catheter yourself. What to Expect During Recovery - Your urethra needs time to heal, which typically takes several weeks - You may notice some blood in your urine initially, which should gradually improve - Some discomfort around the catheter is normal, but severe pain should be reported - You may experience urinary urgency or bladder spasms while the catheter is in place Warning Signs - Call Your Doctor Immediately If You Experience: - Fever over 100.4?F (38?C) - Severe pain in your lower abdomen, penis, or perineum - Heavy bleeding or large blood clots in your urine - Inability to drain urine through the catheter - Catheter falls out or becomes dislodged - Foul-smelling urine or cloudy drainage - Swelling of the penis, scrotum, or lower abdomen Catheter Care at Home - Keep the catheter bag below the level of your bladder at all times - Empty the drainage bag when it is half to two-thirds full - Clean around the catheter insertion site daily with soap and water - Drink plenty of fluids (6-8 glasses of water per day) unless instructed ot herwise - Secure the catheter to your thigh to prevent pulling or tension Activity Restrictions - Avoid heavy lifting (more than 10-15 pounds) while the catheter is in place - Avoid strenuous physical activity and exercise - Sexual activity should be avoided until cleared by your urologist - You may shower but avoid baths or swimming Follow-Up Care - VERY IMPORTANT You MUST follow up with a urologist. Urethral injuries have a high risk of developing complications, particularly urethral stricture (narrowing of the urethra), which occurs in approximately 78% of patients with catheter-related injuries.[1] https://pubmed.ncbi.nlm.nih.gov/21826172 [2] https://pubmed.ncbi.nlm.nih.gov/29275854 Your urologist will: - Monitor your healing with imaging studies (urethrogram or cystoscopy)[3] https://www.ncbi.nlm.nih.gov/pmc/articles/XWW9038515/ - Determine when the catheter can be safely removed - Watch for signs of urethral stricture development - Plan any additional treatment if needed Long-Term Monitoring Even after your catheter is removed and you are urinating normally, you will need ongoing follow-up because: - Urethral strictures can develop months after the initial injury[2] https://pubmed.ncbi.nlm.nih.gov/53668144 - Early detection and treatment of strictures leads to better outcomes[4] https://pubmed.ncbi.nlm.nih.gov/07028975 - Some patients require periodic urethral dilation or other procedures[1] https://pubmed.ncbi.nlm.nih.gov/27647813 Symptoms That May Indicate Stricture Formation (Report These to Your Urologist): - Weak or decreased urinary stream - Difficulty starting urination - Feeling of incomplete bladder emptying - Urinary spraying or splitting of stream - Frequent urinary tract infections - Painful urination[5] https://www.Clonelessology.com/doi/10.1097/JU.6231941424549203?url_ver=Z39.88- 2003&rfr_id=tanisha:rid:crossref.org&rfr_dat=cr_pub%20%200pubmed Medications Take all prescribed medications as directed, which may include: - Antibiotics to prevent infection - Pain medications as needed - Medications to reduce bladder spasms Questions or Concerns If you have any questions or concerns about your recovery, contact your urologist's office. Do not wait until your scheduled appointment if you are experiencing problems. References * Incidence, Cost, Complications and Clinical Outcomes of Iatrogenic Urethral Catheterization Injuries: A Prospective Multi-Institutional Study https://pubmed.ncbi.nlm.nih.gov/14253666 . Mac DELGADO, Jose MR, Melchor DANIEL, et al. The Journal of Urology. 2016;196(5):7556-1480. doi:10.1016/j.juro.2016.05.114. * Long-Term Outcomes of Urethral Catheterisation Injuries: A Prospective Multi- Institutional Study https://pubmed.ncbi.nlm.nih.gov/28993366 . Mac DELGADO, Melchor DANIEL, Frandy Angel, et al. World Journal of Urology. 2020;38(2):473-480. doi:10.1007/y27296-619-03916-l. * Kidney and Uro-Trauma: WSES-AAST Guidelines https://www.ncbi.nlm.nih.gov/pmc/articles/NHC6733688/ . Dewayne F, Inderjit EE, Merlene Y, et al. World Journal of Emergency Surgery : WJES. 2019;14:54. doi:10.1186/j44108-329-3503-b. * Urethral Injuries: Diagnostic and Management Strategies for Critical Care and Trauma Clinicians https://pubmed.ncbi.nlm.nih.gov/14601201 . Garcia AB, Krystel EC, Yvette PN, et al. Journal of Clinical Medicine. 2022;12(4):1495. doi:10.3390/fxa41978110. * Urethral Stricture Disease Guideline Amendment (2022) https://www.Clonelessology.com/doi/10.1097/JU.7848858461350818?url_ver=Z39.88- 2003&rfr_id=tanisha:rid:crossref.org&rfr_dat=cr_pub%20%200pubmed . Janes H, Randy A, Souter L, Marisel L, Vanni A. The Journal of Urology. 2022;210(1):64- 71. doi:10.1097/JU.8586041187640180. Referrals: Eddi Noe NP [Primary Care Provider] - 1 week Discharge Date/Time: 02/17/25 19:54
[2025-02-17 19:00] LABS: Glucose Urine UA NEGATIVE (NEGATIVE)
[2025-02-17 19:10] LABS: Cast Seen? NONE SEEN #/LPF (NONE SEEN); Crystals Seen? None Seen #/HPF (None Seen); Urine Culture Indicated YES-FRMC
--- OUTSIDE RECORDS SUMMARY | 2025-02-17 19:23 | XMS_ITS | Clinical Summary ---
Author Organization [facility] tem Address [id number] [address] [place] [address] Care Team Providers Care Gaming Surveillance Observer Name Role Phone Nunu Tierney ELECTRONIC TECHNICIAN-EPIDEMIOLOGY INVESTIGATOR Primary Care Provider + Allergies No known active allergies Medications No known medications Encounters DateTypeDepartmentCare YrcnNocmmfzfqsg21/08/2025 7:45 AM EST - 01/27/2025 11:59 PM ESTHospital Encounter [facility] - Radiology [address] [place] [address] Lumbar back pain with radiculopathy affecting lower extremity Discharge Disposition: Home01/27/2025Travelfrom Last 3 Months Social History Tobacco UseTypesPacks/DayYears UsedDateSmoking Tobacco: RoznlbYzivaukpsg6Lcfv: 11/04/2017Smokeless Tobacco: NeverAlcohol UseStandard Drinks/WeekCommentsYes0 (1 standard drink = 0.6 oz pure alcohol)2 drinks of Absolut dailyChildcareAnswer Date XnvslewkKfhoaslqgSdetioj09/12/2019EmploymentAnswerDate RecordedEmployment Pjzclwu0108/01/2018Purpose - LifeAnswerDate RecordedPurpose and direction in life Fjqyeyr49/11/2021Sex and Gender InformationValueDate RecordedSex Assigned at BirthNot on fileLegal ZcyUzmb8209/25/2014 12:13 PM EDTGender IdentityNot on file Sexual OrientationNot on file Last Filed Vital Signs Vital SignReadingTime TakenCommentsBlood Msvnqlgy635/8803 3:14 PM EDT Tympr6054 3:14 PM MWERvygpnxbdaa21.8 ??C (98.2 ??F)05/16/2018 12:30 PM EDTRespiratory Hkwk564605/16/2018 3:14 PM EDTOxygen Hhoetpgjcu44%05/16/2018 3:14 PM EDTInhaled Oxygen Concentration--Sjzufn93.6 kg (160 lb)05/16/2018 12:30 PM BGLRcutac667.8 cm (5' 10 )05/16/2018 12:30 PM EDTBody Mass Index22.9605/16/2018 12:30 PM EDT Plan of Treatment Health MaintenanceDue DateLast DoneCommentsDepression Bffxbszmh87/03/1970Tobacco Yuuofejgm59/03/1970Adult BMI Fyhuppwzn97/03/1976DTaP,Tdap and Td Vaccines (1 - Tdap)1976Zoster (Shingles) Vaccine (1 of 2)05/24/2007Fall Risk Screening 2022OVID-19 Vaccine (3 - season)/, 09/16/2020 Influenza Zrrjaec741/12/2023, 12/26/2022, 11/09/2019, Additional history existsRSV ( or age 60+ yrs) (1 - 1-dose 75+ series)2032 Medical Devices Not on file Procedures Procedure NamePriorityDate/TimeAssociated DiagnosisCommentsXR SPINE LUMBAR MIN 4 TLYDwnzpvg30/08/2025 7:56 AM EST Lumbar back pain with [...] 9:24 AM Authorizing ProviderResult TypeResult StatusAlyssa Tierney ELECTRONIC TECHNICIAN-CNPIMG DIAGNOSTIC IMAGING ORDERABLESFinal Result from Last 3 Months Insurance Care Teams Team MemberRelationshipSpecialtyStart DateEnd Date Nunu Tierney APRN-EPIDEMIOLOGY INVESTIGATOR [address] [place] [address] PCP - GeneralNurse Practitioner05/20/24
--- OUTSIDE RECORDS SUMMARY | 2025-02-17 19:23 | XMS_ITS | Patient Health Record ---
Author Organization [facility]ly [facility] vices Address [address] [place], [place] [id number] Care Team Providers Care Parts Processor Name Role Phone Nunu Tierney Primary Care Provider [phone] Unavailable [phone] Allergies No Known Allergies Results Component Value Reference Range Flag Notes SPINE LUMBAR MIN 4 VWS Reviewed date:01/28/2025 08:13:35 AM Interpretation: Performing Lab: Notes/Report: SEE RESULTS BELOW CLINICAL INFORMATION: COMPREHENSIVE METABOLIC PANE L (AMA) Reviewed date:04/18/2024 11:20:54 PM Interpretation: Performing Lab: Notes/Report: GLUCOSE 90 70-100 mg/dL LDKCVV320909-204 mmol/LPOTASSIUM4.53.5-5.4 mmol/PZRTQJTCT67360-740 mmol/CYQ254 18-32 mmol/FIET243-60 mg/dLHCREATININE, BLOOD0.840.67-1.30 mg/dLeGFR (2020 CKD-EPI)96>59 mL/min/1.70m3QVBCRNX8.78.6-10.5 mg/Delvin. PROTEIN7.46.0-8.3 g/dL ALBUMIN4.63.5-5.2 g/dLGLOBULIN2.81.8-3.8 g/dLA/G RATIO1.61.0-2.5 RATIOALK PHOS66 39-118 U/DIAE-ITSD282-82 U/BKLA-FPNB378-87 U/LT. BILIRUBIN0.6<1.3 mg/dLPSA, TOTAL, 3RD GENERATION Reviewed date:04/18/2024 11:20:54 PM Interpretation: Performing Lab: Notes/Report:PSA, TOTAL8.2200-4.00 ng/mLH Method: Jerrell Joanna ECLIA PSA levels should [...] UNLESS OTHERWISE INDICATED, ALL TESTING PERFORMED AT: [facility] [employer]. [address] [place] [address] AUTOMATED ACCESS SYSTEMS TECHNICIAN: JORDAN HERNANDEZ M.D. CLIA NUMBER [id number] CAP ACCREDITATION AUID [id number] LIPID PANEL WITH REFLEX TO DIRECT LDL Reviewed date:04/18/2024 11:20:54 PM Interpretation: Performing Lab: Notes/Report:SAYVVMSFDLM207059-770 mg/qXYNHXNZODLXGYSJ8055-168 mg/dLVLDL-CHOL, CALCULATED7<30 mg/dLHDL-OCWL850>=40 mg/dLLDL-CHOL, JCWBKPRGTV983<130 mg/dL ADULT LDL CHOLESTEROL CLASSIFICATION <100mg/dL Optimal [...] risk <7.1 <5.6 high risk >7.1 >5.6 CHOL/HDL1.92.0-4.5LEXT NON-VASC RT LIMITED Reviewed date:05/22/2024 08:27:58 AM Interpretation: Performing Lab: Notes/Report: RESULTS BELOW Clinical history: Groin pain. History of hernia repair. 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 (For example: talkingto friends on the phone, visiting friends or family, going to mu-ism or club meetings)More than 5 times a weekpatient entered dataHow stressed are you? Stress is when someone feels tense, nervous, anxious, or can't sleep at nightbecause their mind is troubledNot at allpatient entered dataIn the past year have you spent more than 2 nights in a row in a [place], alf, long-term center, orjuvenile correctional facility?Nopatient entered dataAre you [...] ?Choose not to disclosePCMH and UDS DemographicsSocial InfoQuestionAnswerNotesPriMid [facility] Medical Home QuestionsDo you have any [...] r id of a hangover?Nopatient entered dataCAGE-AID Isekl3EvgdsrywjkuihuDpxwhkpg Subtance AbuseTobacco Use:Social InfoQuestionAnswerNotesTobacco Use/Smoking Tobacco use:former smokerpatient entered data? When did you start smoking? 03/16/1976patient entered data? When did you stop smoking?09/13/2009 patient entered data? How long has it been since you last smoked?> 10 years patient entered data Problems Problem Type SNOMED Code ICD Code Onset Dates Problem Status W/U Status Risk Notes Problem Essential hypertension (18158908) Essenti al hypertension (I10) ActiveconfirmedProblemLower urinary tract symptoms due to benign prostatic hypertrophy (88472406997506)Benign prostatic hyperplasia with lower urinary tract symptoms (N40.1)ActiveconfirmedProblemGastroesophageal reflux disease (767921576)GERD without esophagitis (K21.9)ActiveconfirmedProblemLumbar radiculopathy (532300516)Lumbar back pain with radiculopathy affecting lower extremity (M54.16)ActiveconfirmedProblemCarpal tunnel syndrome of right wrist (096896102671020)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)Activeconfirmed Vital [...] Location Date Provider Diagnosis Main [address] [place], [place] [id number] 03/18/2024 Nunu Niall Essential hypertensi on I10 ; Benign prostatic hyperplasia with lower urinary tract symptoms N40.1 ; Overweight E66.3 and Body mass index [BMI] 28.0-28.9, adult Z68.28 Main [address] [place], [place] [id number] 04/16/2024 Nunu Niall Essential hypertensi on I10 ; Benign prostatic hyperplasia with lower urinary tract symptoms N40.1 ; Overweight E66.3 and Body mass index [BMI] 28.0-28.9, adult Z68.28 Main [address] [place] [id number] 05/14/2024 Nunu Niall Essential hypertensi on I10 ; Right groin pain R10.31 ; Overweight E66.3 and Body mass index [BMI] 29.0-29.9, adult Z68.29 Main [address] [place] [id number] 11/11/2024 Nunu Niall Essential hypertensi on I10 ; Benign prostatic hyperplasia with lower urinary tract symptoms N40.1 ; Overweight E66.3 and Body mass index [BMI] 27.0-27.9, adult Z68.27 Main [address] [place] [id number] 12/09/2024 Nunu Niall Overweight E66.3 ; L umbar back pain M54.50 and Body mass index [BMI] 27.0-27.9, adult Z68.[address] [place], [place] [id number] 01/27/2025 Nunu Niall Lumbar back pain wit h radiculopathy affecting lower extremity M54.16 ; Essential hypertension I10 ; Overweight E66.3 and Body mass index [BMI] 28.0-28.9, adult Z68.28 Main [address] [place] [id number] 02/12/[address] [facility] [address] [place], [place] [id number]/lyssa [facility]villeEssential hypertension [id number] [place], [place] [id number]/lyssa [facility] [id number] [place], [place] [id number]/lyssa [address] [place], [place] [id number]/lyssa [facility]villeEssential hypertension X32Uadv [address] [place], [place] [id number]/lyssa [facility]villeEssential hypertension [id number] [place], [place] [id number]/Komal Maikel [address] [place], [place] [id number]/Komal SvpqfdAofx[address] [place], [place] [id number]/lysSt. Luke's Magic Valley Medical CenterBenign prostatic hyperplasia with lower urinary tract symptoms N40.6[address] [place], [place] [id number] 01/28/2025[facility] Assessments Encounter Date Diagnosis (ICD Code) Assessment Notes Treatment Notes Treatment Clinical Notes Section Notes 03/18/2024 Essential hypertension (ICD-10 - I10) Pt's home values are WNL, scanned into pt chart, values in-office are slightly elevated at today's appt Pt denies any symptoms. D/C'ing pt's Losartan 100mg RX sent for Losartan/HCTZ 100-25mg 1QD at this time Pt provided w/ BP log to check at home F/U 1 month or PRN 03/18/2024enign prostatic hyperplasia with lower urinary tract symptoms [...] labs & will call pt w/ results. 04/16/2024enign prostatic hyperplasia with lower urinary tract symptoms [...] pt to complete prior to next appt 5Benign prostatic hyperplasia with lower urinary tract [...] 27.0-27.9, adult (ICD-10 - Z68.27)11/11/2024Overweight (ICD-10 - E66.3)03/18/2024Overweight (ICD-10 - E66.3)05/14/2024Overweight (ICD-10 - E66.3)04/16/2024Overweight (ICD- 10 - E66.3)03/18/2024ody mass index [BMI] 28.0-28.9, adult (ICD-10 - Z68.28) 04/16/2024ody mass index [BMI] 28.0-28.9, adult (ICD-10 - Z68.28)11/11/2024ody mass index [BMI] 27.0-27.9, adult (ICD-10 - Z68.27)05/14/2024ody mass index [BMI] 29.0-29.9, adult (ICD-10 - Z68.29)01/27/2025ody mass index [BMI] 28.0- 28.9, adult (ICD-10 - Z68.28) Plan Of Treatment Future Test Test Name Order Date LIPID PANEL WITH REFLEX TO DIRECT LDL CBC W/AUTO DIFF 04/20/2025 PSA, TOTAL, 3RD GENERATION 04/20/2025 COMPREHENSIVE METABOLIC PANEL (AMA) 02/2025 Next Appt Details Provider Name:Nunu Tierney , 05/12/2025 07:30:00 AM, [address], [place], [id number], Insurance Providers Payer Name Payer Address Payer Phone Subscriber Number Group Number Insured Name Patient Relationship to Insured Coverage Start Date Coverage End Date [place] [employer] [address] [place] [id number] [facility] 0 Franki Tinoco Self - patient is the insured 3 Medical (General) History Medical History History ICD Code BPH (benign prostatic hyperplasia) N40.0 Hypertension Surgical History Surgery Date(Month/Year) double hernia surgery 2007 hemorrhoidectomy 12/2022 Hospitalization History Reason Date(Month/Year) See Above
--- OUTSIDE RECORDS SUMMARY | 2025-02-17 19:24 | XMS_ITS | Encounter Summary ---
Author Organization [facility] Address [address] [facility], [address] [place] [address] Care Team Providers Care Primary Montessori Teacher Name Role Phone Niall Nunu DEBBIE - PASCUAL Primary Care Provider Reason for Visit * ReasonOnset SaakXtpoctztZHRIH82/22/2025 Encounter Details DateTypeDepartmentCare Team (Latest Contact Info)Cgnbtrnoslk01/22/2025Telephone [facility] [address]OLOG[address] [place] [address] Blake Ferreira PATadC [address] [place] [address] [address] [place] [address] OTHER Social History Tobacco UseTypesPacks/DayYears UsedDateSmoking Tobacco: FormerCigarettesQuit: 2019Passive Smoke Exposure: CurrentSmokeless Tobacco: NeverAlcohol UseStandard Drinks/WeekCommentsYes0 (1 standard drink = 0.6 oz pure alcohol)dailySex and Gender InformationValueDate RecordedSex Assigned at BirthNot on fileLegal Sex Male12/21/2020 8:13 AM EDTGender IdentityNot on fileSexual OrientationNot on filedocumented as of this encounter Plan of Treatment DateTypeDepartmentCare Team (Latest Contact Info)Iwunwdaxmww62/12/2026 10:00 AM ESTClinical Support [facility] [address] [place] [address] Reshma Duffy, BACK HANGER - GRAIN GRADER [address] [place] [address] [address] [place] [address] PVR01 11:15 AM ESTProcedure visit [facility] UROLOGY Part of [address] [place] [address] Cm Pugh MD [address] [place] [phone] cysto06/24/2025 9:00 AM EDTOffice Visit [facility] UROLOGY Part of [address] [place] [address] Blake Ferreira, PATadC [address] [place] [address] [address] [place] [address] 6 months PSAdocumented as of this encounter Visit Diagnoses Not on filedocumented in this encounter Care Teams Team MemberRelationshipSpecialtyStart DateEnd Date Nunu Tierney APRN - DIRECTOR TECHNICAL [address] [place] [address] PCP - GeneralNurse Practitioner05/15/24documented as of this encounter
--- OUTSIDE RECORDS SUMMARY | 2025-02-17 19:24 | XMS_ITS | Clinical Summary ---
Author Organization [facility] Address [address] [facility], [address] [place] [address] Care Team Providers Care Hard Candy Batch Mixer Name Role Phone NiallNunu DEBBIE - SHED BOSS Primary Care Provider Allergies No known active allergies Medications MedicationSigDispense QuantityRefillsLast FilledStart DateEnd DateStatus METAMUCIL FIBER PO Take by mouth dailyActive [place]-3 Fatty Acids (FISH OIL) 300 MG CAPS [...] tablet Take 1 tablet by mouth daily5Active levoFLOXacin (LEVAQUIN) 500 MG tablet Take 1 tablet by mouth daily for 10 days 10 tablet 6Active polyethylene glycol (MIRALAX) 17 g PACK packet Take 17 g by mouth dailyActive predniSONE (DELTASONE) 10 MG tablet TAKE 5 TABLETS BY MOUTH DAILY FOR 3 DAYS, then TAKE 4 TABLETS BY MOUTH DAILY FOR 3 DAYS, then TAKE 3 TABLETS BY MOUTH DAILY FOR 3 DAYS, then TAKE 2 TABLETS BY MOUTH DAILY FOR 3 DAYS, then TAKE 1 TABLET BY MOUTH DAILY FOR 3 DAYS12/09/2024 02/06/2025Discontinued naproxen (NAPROSYN) 500 MG tablet TAKE 1 TABLET BY MOUTH EVERY 12 HOURS WITH FOOD OR MILK XFFTVD1712/09/2024 02/06/2025Discontinued(Therapy completed) Active Problems ProblemNoted DateDiagnosed DateBPH with obstruction/lower urinary tract symptoms 05/06/2024Elevated PSA03/15/2024 Encounters DateTypeDepartmentCare OlgoFtbezdvkedo70/29/2025 8:15 AM ESTClinical Support [facility] UROLOGY Part of [address] [place] [address] Reshma Duffy APRN - PIE BAKER Urinary retention (Primary Dx)02/14/2025Telephone [facility] UROLOGY Part of [address] [place] [address] Blake Ferreira, PA-C Other (catheter)02/10/2025Tephone [facility] UROLOGY Part of [address] [place] [address] Blake Ferreira, PA-C OTHER02/06/2025 9:15 AM ESTOffice Visit [facility] UROLOGY Part of [address] [place] [address] Reshma Duffy APRN - AMY BPH with obstruction/lower urinary tract symptoms (Primary Dx); Urinary saauordfx13/18/2025Telephone [facility] UROLOGY Part of [address] [place] [address] Reshma Duffy APRN - PIE BAKER 02/05/2025Tephone [facility] UROLOGY Part of [address] [place] [address] Blake Ferreira, PA-C 12/24/2024 9:00 AM ESTOffice Visit [facility] UROLOGY Part of [address] [place] [address] Blake Ferreira, PA-C Elevated PSA (Primary Dx)11/03/2025Results Follow-Up [facility] UROLOGY Part of [address] [place] [address] Reshma Duffy APRN - PIE BAKER 12/20/2024 6:40 AM EDT - 12/20/2024 11:59 PM EDTHospital Encounter [facility] LAB [address] [place], [place] [id number] Elevated PSA Discharge Disposition: Home or Self Carefrom Last 3 Months Family History Medical HistoryRelationNameCommentsHeart DiseaseFatherCOPDMotherKidney Disease MotherRelationNameStatusCommentsFatherDeceasedMotherDeceased Social History Tobacco UseTypesPacks/DayYears UsedDateSmoking Tobacco: FormerCigarettesQuit: 2019Passive Smoke Exposure: CurrentSmokeless Tobacco: Never Tobacco Cessation:Counseling Given: Not Answered Alcohol UseStandard Drinks/WeekCommentsYes0 (1 standard drink = 0.6 oz pure alcohol)dailySex and Gender InformationValueDate RecordedSex Assigned at Not on fileLegal LlmLfwa33/01/2021 8:13 AM EDTGender IdentityNot on fileSexual OrientationNot on file Last Filed Vital Signs Vital SignReadingTime TakenCommentsBlood Htgatmvr441/8102/17/2025 8:06 AM EST Jczvy047102/17/2025 8:06 AM ADSLytgdjbrums82.5 ??C (97.7 ??F)02/17/2025 8:06 AM ESTRespiratory Rate--Oxygen Saturation--Inhaled Oxygen Concentration--Ciermf03.5 kg (184 lb)02/17/2025 8:06 AM TFKNiofqm075.8 cm (5' 10 )02/06/2025 9:00 AM EST Body Mass Index26. 9:00 AM EST Plan of Treatment DateTypeDepartmentCare Team (Latest Contact Info)Juecyykrwks95/12/2026 10:00 AM ESTClinical Support [facility] UROLOGY Part of [address] [place] [address] Reshma Duffy, MIXER WHIPPED TOPPING - PIE BAKER [address] [place] [address] [address] [place] [address] PVR03/10/2025 11:15 AM ESTProcedure visit [facility] UROLOGY Part [address] [place] [address] Cm Pugh MD [address] [place] [address] cysto06/24/2025 9:00 AM EDTOffice Visit [facility] UROLOGY Part of [address] [place] [address] Blake Ferreira, PA-C [address] [place] [address] [address] [place] [address] 6 months PSAHealth MaintenanceDue DateLast DoneCommentsDepression Screen 1969Hepatitis C qyopel6705/24/1975DTaP/Tdap/Td vaccine (1 - Tdap)1976 Diabetes xtreze0305/23/19927184Duaiud70/03/7731Zrrxrwryznb50/03/2003Colorectal Cancer Oxtgmo9805/23/2002FIT/FOBT: Average risk2002Fecal-DNA (Cologuard): Average risk2002Sigmoidoscopy/CT qmscmhuxqnxm20/03/2003Pneumococcal 50+ years Vaccine (1 of 1 - PCV)05/24/2007Shingles vaccine (1 of 2)05/24/2007AA screen 3Annual Wellness Visit (Medicare Advantage)02/21/2024Flu vaccine (#1) 1/07/2022, 11/09/2019, 12/06/2018, Additional history existsCOVID-19 Vaccine (3 - 2024- season)508/, 1Prostate Specific Antigen (PSA) Screening or Gnztayxpuh63, 05/15/2024, 05/11/2023, Additional history existsRespiratory Syncytial Virus [...] this topic Procedures Procedure NamePriorityDate/TimeAssociated DiagnosisCommentsPSA, DIAGNOSTIC Ddsveuq8012/20/2024 6:51 AM EDT Elevated PSA from Last 3 Months Results * (ABNORMAL) PSA, Diagnostic (12/20/2024 6:51 AM EDT)ComponentValueRef RangeTest MethodAnalysis TimePerformed AtPathologist SignaturePSA5.03(H)0.00 - 4.00 ng/mL12/20/2024 6:51 AM EDTMERCY LABORATORIESComment: The Jerrell ECLIA assay is used. ??Results obtained with different assay methods cannot be used interchangeably. Specimen (Source)Anatomical Location / LateralityCollection Method / Volume Collection TimeReceived TimeBLOOD SPECIMEN / Dxdfdjj6712/20/2024 6:51 AM EDT 12/20/2024 6:52 AM EDT Narrative Authorizing ProviderResult TypeResult StatusBlake LANDRYOHIOHEALTHEMISTRY ORDERABLESFinal ResultPerforming OrganizationAddressCity/State/ZIP CodePhone Number [facility] [address] [place] [address], [facility] [phone] [facility] [address] [place] [address], [facility] [phone] from Last 3 Months Insurance Care Teams Team MemberRelationshipSpecialtyStart DateEnd Date Nunu Tierney APRN - PASCUAL [address] [place] [address] PCP - GeneralNurse Practitioner05/15/24
--- OUTSIDE RECORDS SUMMARY | 2025-02-17 19:24 | XMS_ITS | Patient Health Record ---
Author Organization [facility] Address [address] [address] Care Team Providers Care Merchandise Flow Associate Name Role Phone Carley Lara Unavailable [phone] Allergies No Known Allergies Reason For Referral No Information Plan Of Treatment No Information Insurance Providers Payer Name Payer Address Payer Phone Subscriber Number Group Number Insured Name Patient Relationship to Insured Coverage Start Date Coverage End Date [facility] [address] [place] [address] [id number] SALGUERO - patient is the insured
--- OUTSIDE RECORDS SUMMARY | 2025-02-17 19:24 | XMS_ITS | Encounter Summary ---
Author Organization [facility] Address [facility] [facility], [address] [place] [address] Care Team Providers Care Cream Tester Name Role Phone NiallNunu hernandez DEBBIE - JIGSAWYER Primary Care Provider Encounter Details DateTypeDepartmentCare Team (Latest Contact Info)Ewelabdsvuw32/18/2025Telephone [address] [place] [address] Reshma Duffy PUBLIC HEALTH PROFESSOR - SUPERVISOR ALUMINUM BOAT ASSEMBLY [address] [place] [address] [address] [place] [phone] Social History Tobacco UseTypesPacks/DayYears UsedDateSmoking Tobacco: FormerCigarettesQuit: 2019Passive Smoke Exposure: CurrentSmokeless Tobacco: NeverAlcohol UseStandard Drinks/WeekCommentsYes0 (1 standard drink = 0.6 oz pure alcohol)dailySex and Gender InformationValueDate RecordedSex Assigned at BirthNot on fileLegal Sex Male12/21/2020 8:13 AM EDTGender IdentityNot on fileSexual OrientationNot on filedocumented as of this encounter Plan of Treatment DateTypeDepartmentCare Team (Latest Contact Info)Tikzsksddpm04/12/2026 10:00 AM ESTClinical Support [facility] [address]OLOG[address] [place] [address] Reshma Duffy PUBLIC HEALTH PROFESSOR - SUPERVISOR ALUMINUM BOAT ASSEMBLY [address] [place] [address] [address] [place] [phone] PVR03/10/2025 11:15 AM ESTProcedure visit [facility] UROLOGY Part of [address] [place] [address] Cm Pugh MD [address] [place] [phone] cysto06/24/2025 9:00 AM EDTOffice Visit [facility] UROLOGY Part of [address] [place] [address] Blake Ferreira, PATadC [address] [place] [address] [address] [place] [address] 6 months PSAdocumented as of this encounter Visit Diagnoses Not on filedocumented in this encounter Care Teams Team MemberRelationshipSpecialtyStart DateEnd Date Nunu Tierney APRN - PASCUAL [address] [place] [address] PCP - GeneralNurse Practitioner05/15/24documented as of this encounter
--- OUTSIDE RECORDS SUMMARY | 2025-02-17 19:24 | XMS_ITS | Encounter Summary ---
Author Organization [facility] Address [facility] [facility], [address] [place] [address] Care Team Providers Care Fitness Club Manager Name Role Phone NiallNunu DEBBIE - PASCUAL Primary Care Provider Encounter Details DateTypeDepartmentCare Team (Latest Contact Info)Ckhwzsdmnnk71/17/2025Telephone [address] [place] [address] Blake Ferreira PA-C [address] [place] [address] [address] [place] [address] Social History Tobacco UseTypesPacks/DayYears UsedDateSmoking Tobacco: FormerCigarettesQuit: 2019Passive Smoke Exposure: CurrentSmokeless Tobacco: NeverAlcohol UseStandard Drinks/WeekCommentsYes0 (1 standard drink = 0.6 oz pure alcohol)dailySex and Gender InformationValueDate RecordedSex Assigned at BirthNot on fileLegal Sex Male12/21/2020 8:13 AM EDTGender IdentityNot on fileSexual OrientationNot on filedocumented as of this encounter Plan of Treatment DateTypeDepartmentCare Team (Latest Contact Info)Jgvjyvjthfn62/12/2026 10:00 AM ESTClinical Support [facility] UROLOG[address] [place] [address] Reshma Duffy, SHANK FAKER - DIELECTRIC TESTING MACHINE OPERATOR [address] [place] [address] [address] [place] [address] PVR03/10/2025 11:15 AM ESTProcedure visit [facility] UROLOGY Part of [address] [place] [address] Cm Pugh MD [address] [place] [phone] cysto06/24/2025 9:00 AM EDTOffice Visit [facility] UROLOGY Part of [address] [place] [address] Blake Ferreira, PATadC [address] [place] [address] [address] [place] [address] 6 months PSAdocumented as of this encounter Visit Diagnoses Not on filedocumented in this encounter Care Teams Team MemberRelationshipSpecialtyStart DateEnd Date Nunu Tierney APRN - PASCUAL [address] [place] [address] PCP - GeneralNurse Practitioner05/15/24documented as of this encounter
--- OUTSIDE RECORDS SUMMARY | 2025-02-17 19:24 | XMS_ITS | Encounter Summary ---
Author Organization [facility] Address [address] [facility], [address] [place] [address] Care Team Providers Care Supervisor Metal Fabricating Name Role Phone NiallNunu hernandez DEBBIE - SENIOR ELECTRICAL DESIGN ENGINEER Primary Care Provider Reason for Visit * ReasonOnset GjivFybzuyojIljux14/26/2025catheter Encounter Details DateTypeDepartmentCare Team (Latest Contact Info)Ujrguatzbtf97/26/2025Telephone [facility] UROLOG[address] [place] [address] Blake Ferreira PATadC [address] [place] [address] [address] [place] [address] Other (catheter) Social History Tobacco UseTypesPacks/DayYears UsedDateSmoking Tobacco: FormerCigarettesQuit: 2019Passive Smoke Exposure: CurrentSmokeless Tobacco: NeverAlcohol UseStandard Drinks/WeekCommentsYes0 (1 standard drink = 0.6 oz pure alcohol)dailySex and Gender InformationValueDate RecordedSex Assigned at BirthNot on fileLegal Sex Male12/21/2020 8:13 AM EDTGender IdentityNot on fileSexual OrientationNot on filedocumented as of this encounter Plan of Treatment DateTypeDepartmentCare Team (Latest Contact Info)Aovywxwcved15/12/2026 10:00 AM ESTClinical Support [facility] UROLOG[address] [place] [address] Reshma Duffy, CLIENT SERVER PROGRAMMER - RADIO DESPATCHER [address] [place] [address] [address] [place] [address] PVR01 11:15 AM ESTProcedure visit [facility] UROLOGY Part of [address] [place] [address] Cm Pugh MD [address] [place] [address] cysto06/24/2025 9:00 AM EDTOffice Visit [facility] UROLOGY Part of [address] [place] [address] Blake Ferreira, PATadC [address] [place] [address] [address] [place] [address] 6 months PSAdocumented as of this encounter Visit Diagnoses Not on filedocumented in this encounter Care Teams Team MemberRelationshipSpecialtyStart DateEnd Date Nunu Tierney APRN - SENIOR ELECTRICAL DESIGN ENGINEER [address] [place] [address] PCP - GeneralNurse Practitioner05/15/24documented as of this encounter
--- OUTSIDE RECORDS SUMMARY | 2025-02-17 19:24 | XMS_ITS | Clinical Summary ---
Author Organization [facility] Address [address] [place], [place] [address] Care Team Providers Care Host Coordinator Name Role Phone Cm Starr DO Primary [...] number is lower riskNot on file06/25/2020ata from: https://www.[email or web address].medicine.[email or web address].edu/. Last address used for calculationNot on file06/25/2020ex and Gender Information ValueDate RecordedSex Assigned at BirthNot on fileLegal WbuLdct4706/15/2020 9:30 AM EDTGender IdentityNot on fileSexual OrientationNot on file Last Filed Vital Signs Vital SignReadingTime TakenCommentsBlood Bcnazfly820/7205 11:10 AM EDT Fwued1022/06/2021 11:10 AM NVPQsvfyosxdjv65.6 ??C (97.9 ??F)06/25/2020 11:10 AM EDTRespiratory Rate--Oxygen Wugjxevhbp04%06/25/2020 11:10 AM EDTInhaled Oxygen Concentration--Pvzmft85.6 kg (180 lb)06/25/2020 11:10 AM VRKPhauko119.8 cm (5' 10 )06/25/2020 11:10 AM EDTBody Mass Index25.8306/25/2020 11:10 AM EDT Plan of Treatment Health MaintenanceDue DateLast DoneCommentsAbdominal Aortic Aneurysm Screening 8Anxiety Ewggmeahf40/03/1976Depression Pftkcnqpo36/03/1976Hepatitis C Tjwkajdim70/03/1976DTaP,Tdap,Td Vaccine (1 - Tdap)1976Lipid Screening 1992CT Axihwzzuakmo27/03/2003Cologuard (FIT-DNA)2002Colonoscopy 2002Colorectal Cancer Frqompvpz22/03/2003Fecal Occult Blood2002 Prostate Cancer Screening Nrrezpvijx05/03/4150Rjsstsiuqsloo91/03/2003 Pneumococcal Vaccine: 50+ (1 of 1 - PCV)05/24/2007Shingrix Vaccine (1 of 2) 05/24/2007Diabetes Bxmquwgxm76Advance Directive Discussion 5Covid-19 Vaccine (1 - 2024- season)2024Influenza Vaccine (#1) 2024RSV Vaccine (1 - 1-dose 75+ series)2032 Insurance Care Teams Team MemberRelationshipSpecialtyStart DateEnd Date Cm Starr DO PCP - GeneralFamily Medicine06/15/20
--- OUTSIDE RECORDS SUMMARY | 2025-02-17 19:25 | XMS_ITS | CCD ---
Author Organization [facility] Care Team Providers Care [employer] Turb[employer] Room Operator Name Role Phone Matthew Gallegos Attending Provider Lory Nye Primary Care Provider [phone] Lory Nye Primary Care Provider ZANA CUNNINGHAM Consulting Unavailable ZANA CUNNINGHAM Admitting Unavailable ZANA CUNNINGHAM Attending Unavailable MISC, DR LAWSON Referring Unavailable MISC, DR LAWSON Attending Unavailable MISC, DR LAWSON Consulting Unavailable MISC, DR LAWSON Admitting Unavailable LORY NYE Primary Care Physician Fritz ARELLANO Attending Unavailable Fritz ARELLANO Attending Unavailable Fritz ARELLANO Attending Unavailable Fritz ARELLANO Admitting Unavailable Shamredd MANAGER COST - TELECOMMUNICATIONS LINE MECHANIC, Eddi Hope Primary Care Provi sandoval Colleen MANAGER COST - TELECOMMUNICATIONS LINE MECHANIC, Attila Primary Care Provider ATTILA TIERNEY Referring Unavailable ATTILA TIERNEY Primary Care Unavailable LORY BEARD Referring Unavailable CAMELIA TIENREYYSSA Primary Care Unavailable ROSIE WELCH Referring Unavailable EDDI XIONG Primary Care Unavailable LORY BEARD Attending Unavailable LORY BEARD Referring Unavailable COLLEEN ATTILA Primary Care Unavailable COLLEEN, ATTILA Primary Care Unavailable ALFRED FERREIRA Referring Unavailable Unavailable Unavailable Unavailable Allergies Allergy ClassificationReported Allergen(s)Allergy TypeDate of OnsetReaction(s) Facility (1 source)No Known Medication Allergies; Translations: [No Known Medication Allergies]Propensity to adverse reactions (disorder)[facility] Medications Current Medications MedicationDrug Class(es)DatesSig (Normalized)Sig (Original)ascorbic acid 500 mg chewable tablet (3 sources)Vitamin Ctake 2 tablets by mouth once dailyvitamin C (ASCORBIC ACID) 500 MG tablet Take 2 tablets by mouth daily ActivehydroCHLOROthiazide 12.5 mg oral tablet (3 sources)Thiazide DiureticStart: 65-71-2764xcsr 1 tablet by mouth once daily hydroCHLOROthiazide 12.5 MG tablet Take 1 tablet by mouth daily 04/16/2024 Activehyoscyamine sulfate 0.12 mg / methenamine 118 mg / methylene blue 10 mg / phenyl salicylate 36 mg /sodium phosphate, monobasic 40.8 mg oral capsule (1 source)Oxidation-Reduction AgentStart: 75-57-7613Dxyneo oral capsule 1 cap(s), Oral, BID, 10 cap(s), Refill(s) 0, [facility], 177, cm, 12/23/20 9:00:00 EDT, Height/Length Dosing, 82, kg, 12/23/20 9:00:00 EDT, Weight Dosing Start Date: 12/23/20 Status: Orderedlosartan potassium 100 mg oral tablet (3 sources)Angiotensin 2 Receptor BlockerStart: 38-87-8808vzkg 1 tablet by mouth once dailylosartan (COZAAR) 100 MG tablet Take 1 tablet by mouth daily 03/22/2024 ActiveMETAMUCIL FIBER PO (4 sources)METAMUCIL FIBER PO Take by mouth daily ActiveMETAMUCIL FIBER PO Take by mouth daily 0 ActiveMultiple Vitamins-Minerals (ONE A DAY IMMUNITY DEFENSE PO) (3 sources)Multiple Vitamins-Minerals (ONE A DAY IMMUNITY DEFENSE PO) Take by mouth ActiveOmega-3 Fatty Acids (FISH OIL) 300 MG CAPS (3 sources)[place]-3 Fatty Acids (FISH OIL) 300 MG CAPS Take by mouth Active tamsulosin hydrochloride 0.4 mg oral capsule (6 sources)alpha-Adrenergic BlockerStart: 37-53-3894qpan 1 capsule by mouth at bedtimetamsulosin (FLOMAX) 0.4 MG capsule Indications: BPH with obstruction/lower urinary tract symptoms Take 1 capsule by mouth in the morning and at bedtime 180 capsule 03/15/2024 ActiveStart: 60-29-6988nkqz 1 capsule by mouth at bedtimetamsulosin (FLOMAX) 0.4 MG capsule Indications: BPH with obstruction/lower urinary tract symptoms Take 1 capsule by mouth in the morning and at bedtime 180 capsule 3 03/16/2023 ActiveStart: 19-94-7813merb 1 capsule by mouth twice dailytamsulosin 0.4 mg Cap 0.4 mg = 1 cap(s), Oral, BID, # 60 cap(s), Refills(s) 11, Pharmacy: [facility], 177, cm, 05/26/21 8:38:00 EDT, Height/Length Dosing, 82, kg, 05/26/21 8:38:00 EDT, Weight Dosing Start Date: 01/05/22 Status: OrderedStart: 70-47-8543vnwb 1 capsule by mouth once dailytamsulosin 0.4 mg Cap 0.4 mg = 1 cap(s), Oral, Daily, # 60 cap(s), Refills(s) 11, Pharmacy: [facility], 177, cm, 12/23/20 9:00:00 EDT, Height/Length Dosing, 82, kg, 12/23/20 9:00:00 EDT, Weight Dosing Start Date: 12/23/20 Status: Ordered Completed/Discontinued Medications MedicationDrug Class(es)DatesSig (Normalized)Sig (Original)gadoteridol (PROHANCE) injection 17 mL (1 source)Start: 05-29-2024 End: 77-09-2641fkrz 1 dose intravenously once17 mL, IntraVENous, IMG ONCE PRN, 1 dose, Starting on Mon05/29/24 at 0933, Until Mon05/29/24 at 0933,Other Problems Active Problems Problem ClassificationProblemDateDocumented DateEpisodic/ChronicAbdominal pain (1 source)Right lower quadrant pain; Translations: [Right lower quadrant pain] Onset: 52-12-1569RjosdbhrOageetry of urinary tract (2 sources)Kidney howmr54-93-4034SdubqedpLtixgilesrenz congenital anomalies (2 sources)Njhvxnuwlsp28-70-6581DkdscepQphiunmccusea symptoms and ill-defined conditions (8 sources)Retention of urine, unspecified; Translations: [Sensation as if bladder still full]Onset: 14-31-5336WriofmnySsvuo valve disorders (2 sources)Heart -35-0170CzmglmksEjphawemxrd of prostate (11 sources)Benign prostatic hypertrophy with outflow obstruction; Translations: [Benign prostatic hyperplasia with lower urinary tract symptoms]Onset: 00-65-3618ZehqonjKcabd diseases of kidney and ureters (1 source)Urinary tract obstruction; Translations: [Other obstructive and reflux uropathy]Onset: 99-37-5086WedaigxrXzhjnkitc and history of mental health and substance abuse codes (1 source)Personal history of nicotine dependence; Translations: [PERSONAL HISTORY OF NICOTINE DEPEND]Onset: 03-67-4711OohumxjjSevkvrhwjwks (2 sources)Finding of sensation of rzoogzq45-42-7786Iasofzxunbji (1 source)Patient encounter xdrzsi39-31-1825 Past or Other Problems Problem ClassificationProblemDateDocumented DateEpisodic/ChronicOther diseases of kidney and ureters (1 source)Other obstructive and reflux uropathy; Translations: [Other obstructive and reflux uropathy]Onset: 82-20-0742ZlioocidHzikk screening for suspected conditions (not mental disorders or infectious disease) (14 sources)Encounter for screening for diabetes mellitus; Translations: [Encounter for screening for cardiovascular disorders]Onset: 66-89-9568Mwdroono Results Test NameValueInterpretationReference RangeFacilityPSA, Diagnosticon 12-20-2024 Interpretation and review of laboratory resultsAbnormalCentra Health Prostate specific Ag [Mass/Vol]5.03 ng/mLHigh0.00 - 4.00 ng/mLSouthside Regional Medical Center on above:The fsboWOW ECLIA assay is used. Results obtained with different assay methods cannot be used interchangeably. Centra HealthProstatic Spec. Ag5.03 ng/mLHigh0.00-4.00[facility] on above:Result Comment: The Jerrell ECLIA assay is used. Results obtained with different assay methods cannot be used interchangeably.Performed By: #### PSAD #### Ph.[facility] [place], [place] [id number] Overlocker: MARISOL Woo Prostate WO and W contrast Tiffani . No MRI evidence of clinically significant prostate cancer. 2. BPH. Estimated prostate gland volume 86 mL. [facility] RIS CONSOLIDATEDEXAMINATION: MULTIPARAMETRIC MRI OF THE PROSTATE WITH AND WITHOUT CONTRAST 05/29/2024: TECHNIQUE: Multiparametric imaging with dynamic contrast enhanced imaging and diffusion weighted imaging was performed. COMPARISON: None. HISTORY: ORDERING SYSTEM PROVIDED HISTORY: Elevated PSA TECHNOLOGIST PROVIDED HISTORY: STAT Creatinine as needed:->No FINDINGS: PROSTATE: 5.0 cm x 5.6 cm x 5.9 cm (estimated volume 86 ml). PERIPHERAL ZONE: Mildly heterogeneous T2 signal without focal lesion identified. No restricted diffusion or abnormal enhancement. CENTRAL/TRANSITION ZONE: Enlarged and heterogeneous with multiple nodules, consistent with BPH. There is a prominent median lobe projecting into the bladder base. Some subcentimeter PI-RADS 2 nodules are observed in the left transition zone at the apex. No significant restricted diffusion or abnormal enhancement. Anterior fibromuscular stroma: Unremarkable Urethral sphincter: No significant abnormality evident Seminal vesicles: Unremarkable. Neurovascular bundle: Unremarkable. Lymphadenopathy: No evidence of lymphadenopathy. Bladder: The bladder is unremarkable. Bowel: The visualized bowel is without acute abnormality. Peritoneal cavity: No free fluid. Bones/soft tissues: Normal bone marrow signal intensity. No suspicious or aggressive osseous lesions. Nixon Rosales MD - 05/30/2024 EXAMINATION: MULTIPARAMETRIC MRI OF THE PROSTATE WITH AND WITHOUT CONTRAST 05/29/2024: TECHNIQUE: Multiparametric imaging with dynamic contrast enhanced imaging and diffusion weighted imaging was performed. COMPARISON: None. HISTORY: ORDERING SYSTEM PROVIDED HISTORY: Elevated PSA TECHNOLOGIST PROVIDED HISTORY: STAT Creatinine as needed:->No FINDINGS: PROSTATE: 5.0 cm x 5.6 cm x 5.9 cm (estimated volume 86 ml). PERIPHERAL ZONE: Mildly heterogeneous T2 signal without focal lesion identified. No restricted diffusion or abnormal enhancement. CENTRAL/TRANSITION ZONE: Enlarged and heterogeneous with multiple nodules, consistent with BPH. There is a prominent median lobe projecting into the bladder base. Some subcentimeter PI-RADS 2 nodules are observed in the left transition zone at the apex. No significant restricted diffusion or abnormal enhancement. Anterior fibromuscular stroma: Unremarkable Urethral sphincter: No significant abnormality evident Seminal vesicles: Unremarkable. Neurovascular bundle: Unremarkable. Lymphadenopathy: No evidence of lymphadenopathy. Bladder: The bladder is unremarkable. Bowel: The visualized bowel is without acute abnormality. Peritoneal cavity: No free fluid. Bones/soft tissues: Normal bone marrow signal intensity. No suspicious or aggressive osseous lesions. IMPRESSION: 1. No MRI evidence of clinically significant prostate cancer. 2. BPH. Estimated prostate gland volume 86 mL. [facility] Prostate WO and W contrast IVOrdered By: Nixon Allison on 64-78-0977[employer] Work Phone: MRI PROSTATE W WO CONTRASTon [id number] PROSTATE W WO CONTRASTEXAMINATION: MULTIPARAMETRIC MRI OF THE PROSTATE WITH AND WITHOUT CONTRAST 05/29/2024: TECHNIQUE: Multiparametric imaging with dynamic contrast enhanced imaging and diffusion weighted imaging was performed. COMPARISON: None. HISTORY: ORDERING SYSTEM PROVIDED HISTORY: Elevated PSA TECHNOLOGIST PROVIDED HISTORY: STAT Creatinine as needed:->No FINDINGS: PROSTATE: 5.0 cm x 5.6 cm x 5.9 cm (estimated volume 86 ml). PERIPHERAL ZONE: Mildly heterogeneous T2 signal without focal lesion identified. No restricted diffusion or abnormal enhancement. CENTRAL/TRANSITION ZONE: Enlarged and heterogeneous with multiple nodules, consistent with BPH. There is a prominent median lobe projecting into the bladder base. Some subcentimeter PI-RADS 2 nodules are observed in the left transition zone at the apex. No significant restricted diffusion or abnormal enhancement. Anterior fibromuscular stroma: Unremarkable Urethral sphincter: No significant abnormality evident Seminal vesicles: Unremarkable. Neurovascular bundle: Unremarkable. Lymphadenopathy: No evidence of lymphadenopathy. Bladder: The bladder is unremarkable. Bowel: The visualized bowel is without acute abnormality. Peritoneal cavity: No free fluid. Bones/soft tissues: Normal bone marrow signal intensity. No suspicious or aggressive osseous lesions. IMPRESSION: 1. No MRI evidence of clinically significant prostate cancer. 2. BPH. Estimated prostate gland volume 86 mL. Interpreted by: Nixon Allison MD Signed by: Nixon Allison MD 05/30/24 Final resultNormalMercy Danbury Hospital Prostate WO and W contrast Tiffani 99-52-4814Xekmybiiq Study observation (narrative)[facility] Medical CenterUS EXT NON-VASC RT LIMITEDon [id number] EXT NON-VASC RT LIMITEDUS EXT NON-VASC RT LIMITED Clinical history: Groin pain. History of hernia repair. Limited right lower extremity ultrasound: 05/20/2024 FINDINGS: Sonographic evaluation was focused on the area of clinical symptoms in the right groin No hernia or dynamic abnormality is present in the right groin region. Reniform hypoechoic areas appear to have fatty ruby and vascular flow compatible with benign appearing lymph nodes. These measure up to 6 mm in diameter. No soft tissue mass or abnormal fluid collection is present IMPRESSION: Benign-appearing inguinal lymph nodes. No other focal abnormality on sonographic images of the groin region. Finalized by Marco A Jason MD on 05/22/2024 6:39 AMNormalProSelect Medical Cleveland Clinic Rehabilitation Hospital, Edwin Shawca Kaiser Foundation HospitalBasi Metabolic Panelon 80-31-9593Nyqqk gap [Moles/Vol]8 mmol/LLow9 - 16 mmol/LBon LUMI MaskCalcium [Mass/Vol]9.3 mg/dL8.6 - 10.4 mg/dLBon [facility] HospitalClassic DriveChloride [Moles/Vol]101 mmol/L98 - 107 mmol/LBon [facility] HospitalClassic DriveCO2 [Moles/Vol]29 mmol/L20 - 31 mmol/LBon LUMI Mask Creatinine [Mass/Vol]0.8 mg/dL0.70 - 1.20 mg/dLBon [facility] HospitalClassic DriveEst, Glom Filt Rate- PINFBon [facility] Behavior[facility] Health HospitalClassic DriveComment on above: These results are not intended for use in patients <18 years of age. eGFR results are calculated without a race factor using the 2020 CKD-EPI equation. Careful clinical correlation is recommended, particularly when comparing to results calculated using previous equations. The CKD-EPI equation is less accurate in patients with extremes of muscle mass, extra-renal metabolism of creatine, excessive creatine ingestion, or following therapy that affects renal tubular secretion. Glucose [Mass/Vol]106 mg/jTWojg53 - 99 mg/dLBon LUMI Mask Interpretation and review of laboratory resultsAbnormalBon [facility] HospitalClassic Drive Potassium [Moles/Vol]4.1 mmol/L3.7 - 5.3 mmol/LBon LUMI MaskSodium [Moles/Vol]138 mmol/L136 - 145 mmol/LBon [facility] HospitalClassic DriveUrea nitrogen [Mass/Vol]21 mg/dL8 - 23 mg/dLBon [facility] HospitalClassic DriveUrea nitrogen/Creatinine [Mass ratio]26 mg/mgHigh9 - 20Bon [facility] HospitalClassic DriveBallad HealthHarrison Community Hospital Basic Metabolic Profon 20-57-7341Anyjv gap [Moles/Vol]8 mmol/LLow9-16[facility] HospitalComment on above:Performed By: #### CDP, BMP #### [facility] [address] [place] [address] Dr[address] [place] [address] Overlocker: Shane Salgado MD #### PSAD #### [address] [address] Overlocker: Christian Garcia MDBUN/CRE Mmgxq38Drib9-14IpnmkBucyrus Community Hospital Comment on above:Performed By: #### SRINI, BMP #### [address] [place] [address] Overlocker: Shane Salgado MD #### PSAD #### [address] [address] Overlocker: ANKITA Wooalcium [Mass/Vol]9.3 mg/dLNormal8.6-10.4[facility] Community HospitalComment on above:Performed By: #### SRINI, BMP #### [address] [place], [place] [address] Overlocker: Shane Salgado MD #### PSAD #### [address] [address] Overlocker: ANKITA Woohloride [Moles/Vol]101 mmol/BIhrzrz40-876HxhxzBucyrus Community HospitalComment on above:Performed By: #### SRINI, BMP #### [address] [place] [address] Overlocker: Shane Salgado MD #### PSAD #### [address] [address] Overlocker: ANKITA WooO2 [Moles/Vol]29 mmol/IAxhoeb38-24NdtunBucyrus Community HospitalComment on above:Performed By: #### SRINI, BMP #### [address] [place] [address] Overlocker: Shane Salgado MD #### PSAD #### [facility] [address] [place], [place] [phone] Overlocker: ANKITA Wooreatinine [Mass/Vol]0.8 mg/dLNormal0.70-1.20 [facility] HospitalComment on above:Performed By: #### SRINI, BMP #### [address] [place] [address] Overlocker: Shane Salgado MD #### PSAD #### [facility] [address] [place], [place] [phone] Overlocker: Christian Garcia MDGFR/1.73 sq M.predicted among non-blacks MDRD (S/P/Bld) [Vol rate/Area]mL/min/{1.73_m2}Normal>60[facility] Community HospitalComment on above:Result Comment: These results are not intended for use in patients <18 years of age. eGFR results are calculated without a race factor using the 2020 CKD-EPI equation. Careful clinical correlation is recommended, particularly when comparing to results calculated using previous equations. The CKD-EPI equation is less accurate in patients with extremes of muscle mass, extra-renal metabolism of creatine, excessive creatine ingestion, or following therapy that affects renal tubular secretion.Performed By: #### SRINI, BMP #### [address] [place] [address] Overlocker: Shane Salgado MD #### PSAD #### [facility] [address] [place], [place] [phone] Overlocker: Christian Garcia MDGlucose [Mass/Vol]106 mg/nVGiaj82-87FgcpbOhioHealth O'Bleness HospitalComment on above:Performed By: #### SRINI, BMP #### [address] [place] [id number] Overlocker: hSane Salgado MD #### PSAD #### [place] [id number] Overlocker: ALANNA Woootassium [Moles/Vol]4.1 mmol/LNormal3.7-5.3 [facility] HospitalComment on above:Performed By: #### CDP, BMP #### [address] [place] [id number] Overlocker: Shane Salgado MD #### PSAD #### [place] [id number] Overlocker: JUAN FRANCISCO Wooodium [Moles/Vol]138 mmol/AJupmux435-549EllpbBucyrus Community HospitalComment on above:Performed By: #### SRINI, BMP #### [address] [place] [phone] ( Overlocker: Shane Salgado MD #### PSAD #### [place] [address] Overlocker: Christian Garcia MDUrea nitrogen [Mass/Vol]21 mg/dLNormal8-23Bu[facility] Community HospitalComment on above:Performed By: #### SRINI, BMP #### [address] [place] [id number] Overlocker: Shane Salgado MD #### PSAD #### [place] [id number] Overlocker: Christian Garcia [facility] with Auto Differentialon 13-64-6354Itytqveka (Bld) [#/Vol]0.04 10*3/uLBon Secours [facility] Medical [facility] Hospital [facility] Columbus SouthBasophils/100 WBC (Bld)1 %0 - 2 %[facility] SouthEosinophils (Bld) [#/Vol]0.29 10*3/uLBon Secours [facility] HealthEosinophils/100 WBC (Bld)7 %High1 - 4 %[facility] Health Erythrocyte distribution width (RBC) [Ratio]13 %11.8 - 14.4 %[facility] SecHarrison Community HospitalHematocrit (Bld) [Volume fraction]44.7 %40.7 - 50.3 %[facility] HealthHemoglobin (Bld) [Mass/Vol]15.2 g/dL13.0 - 17.0 g/dLBon Secours [facility] SouthImmature granulocytes (Bld) [#/Vol][facility] SouthImmature granulocytes/100 WBC (Bld)0 %0Bon SecNorthshore Psychiatric Hospital HealthInterpretation and review of laboratory resultsAbnormalBon SecNorthshore Psychiatric Hospital HealthLymphocytes/100 WBC (Bld)33 %24 - 43 %[facility] HealthLymphocytes/100 WBC (Bld)1.4 %[facility] HospitalH (RBC) [Entitic mass]33.7 wzQqnz93.2 - 33.5 pgBon [facility] Medical CenterHC (RBC) [Mass/Vol]34 g/dL28.4 - 34.8 g/dLBon SecHarrison Community HospitalMCV (RBC) [Entitic vol]99.1 fL82.6 - 102.9 fLCentra Health HealthMonocytes/100 WBC (Bld)11 %3 - 12 %[facility] HealthMonocytes/100 WBC (Bld)0.48 %[facility] HealthNeutrophils/100 WBC (Bld)48 %36 - 65 %[facility] HealthNucleated RBC/100 WBC (Bld) [Ratio]0 %0.0 per 100 WBCBon Secours [facility] HealthPlatelet mean volume (Bld) [Entitic vol]8.8 fL8.1 - 13.5 fLBon SecNorthshore Psychiatric Hospital HealthPlatelets (Bld) [#/Vol]267 10*3/uLBon [facility]ours [facility] HealthRBC (Bld) [#/Vol]4.51 10*6/uL4.21 - 5.77 m/uLBon [facility] SouthSegmented neutrophils/100 WBC (Bld)2.05 %Bon [facility] HospitalW other (Bld) [#/Vol] 4.3Bon [facility] HospitalBon [facility] with Diffon 05-15-2024 Abs. Basophil0.04 k/uLNormal0.00-0.20[facility] HospitalComment on above: Performed By: #### CDP, BMP #### [address] [place] [address] Overlocker: Shane Salgado MD #### PSAD #### [place] [phone] Overlocker: Latasha Woo.Imm.Granulocyte<0.45Uzcgwb5.00-0.30[facility] Community HospitalComment on above:Performed By: #### SRINI, BMP #### [address] [place] [address] Overlocker: Shane Salgado MD #### PSAD #### [place] [address] Overlocker: Latasha Woo.Neutrophil (Seg)2.05 k/uLNormal1.50-8.10 [facility] HospitalComment on above:Performed By: #### SRINI, BMP #### [address] [place] [address] Overlocker: Shane Salgado MD #### PSAD #### [place] [address] Overlocker: Christian Garcia MDBasophils/100 WBC (Bld)1 %Normal0-2MOhioHealth O'Bleness HospitalComment on above:Performed By: #### CDP, BMP #### [address] [place] [address] Overlocker: Shane Salgado MD #### PSAD #### [address] [address] Overlocker: Christian Garcia MDEosinophils (Bld) [#/Vol]0.29 10*3/uLNormal 0.00-0.44[facility] HospitalComment on above:Performed By: #### CDP, BMP #### [address] [place] [phone] Overlocker: Shane Salgado MD #### PSAD #### [address] [address] Overlocker: Christian Garcia MDEosinophils/100 WBC (Bld)7 %High1-4[facility] HospitalComment on above:Performed By: #### CDP, BMP #### [address] [place] [address] Overlocker: Shane Salgado MD #### PSAD #### [place] [address] Overlocker: Christian Garcia MDErythrocyte distribution width (RBC) [Ratio]13.0 %Jlopsk64.8-14.4[facility] Community HospitalComment on above:Performed By: #### CDP, BMP #### [address] [place] [id number] Overlocker: Shane Salgado MD #### PSAD #### [place] [address] Overlocker: Christian Garcia MDHematocrit (Bld) [Volume fraction]44.7 %Normal 40.7-50.3MOhioHealth O'Bleness HospitalComment on above:Performed By: #### CDP, BMP #### [address] [place] [phone] Overlocker: Shane Salgado MD #### PSAD #### [address] [place] [address] Overlocker: Christian Garcia MDHemoglobin (Bld) [Mass/Vol]15.2 g/dLNormal 13.0-17.0[facility] HospitalComment on above:Performed By: #### CDP, BMP #### [address] [place], [place] [phone] Overlocker: Shane Salgado MD #### PSAD #### [address] [address] Overlocker: Christian Garcia MDImmature granulocytes/100 WBC (Bld)0 %Normal0 [facility] on above:Performed By: #### CDP, BMP #### [address] [place], [place] [address] Overlocker: Shane Salgado MD #### PSAD #### [address] [address] Overlocker: Christian Garcia MDLymphocytes (Bld) [#/Vol]1.40 10*3/uLNormal 1.10-3.70[facility] HospitalComment on above:Performed By: #### CDP, BMP #### [address] [place], [place] [address] Overlocker: Shane Salgado MD #### PSAD #### [address] [address] Overlocker: Christian Garcia MDLymphocytes/100 WBC (Bld)33 %Bsuqfg80-18CysdqBucyrus Community HospitalCombeaumont hospital on above:Performed By: #### CDP, BMP #### [address] [place], [place] [address] Overlocker: Shane Salgado MD #### PSAD #### [address] [place] [id number] Overlocker: RADHA WooCH (RBC) [Entitic mass]33.7 wiSwwq81.2-33.5 [facility] HospitalCombeaumont hospital on above:Performed By: #### CDP, BMP #### [address] [place] [phone] Overlocker: Shane Salgado MD #### PSAD #### [address] [id number] Overlocker: RADHA WooCHC (RBC) [Mass/Vol]34.0 g/lPTnqynj58.4-34.8 [facility] HospitalComment on above:Performed By: #### SRINI, BMP #### [address] [place] [phone] Overlocker: Shane Salgado MD #### PSAD #### [place] [address] Overlocker: RADHA WooCV (RBC) [Entitic vol]99.1 nHKhdhhb29.6-102.9 [facility] HospitalComment on above:Performed By: #### SRINI, BMP #### [address] [place] [phone] Overlocker: Shane Salgado MD #### PSAD #### [place] [address] Overlocker: RADHA Wooonocytes (Bld) [#/Vol]0.48 10*3/uLNormal 0.10-1.20[facility] HospitalCombeaumont hospital on above:Performed By: #### CDP, BMP #### [address] [place] [id number] Overlocker: Shane Salgado MD #### PSAD #### [address] [address] Overlocker: RADHA Wooonocytes/100 WBC (Bld)11 %Normal3-12[facility] HospitalComment on above:Performed By: #### CDP, BMP #### [address] [place] [id number] Overlocker: Shane Salgado MD #### PSAD #### [address] [address] Overlocker: Christian Garcia MDNeutrophil (Seg)48 %Lctbvn51-40KqjjoBucyrus Community HospitalComment on above:Performed By: #### SRINI, BMP #### [address] [place] [id number] Overlocker: Shane Salgado MD #### PSAD #### [address] [address] Overlocker: Christian Garcia MDNRBC Automated0.0 per 100 WBCNormal0.0Bu[facility]rus Community HospitalComment on above:Performed By: #### SRINI, BMP #### [address] [place] [id number] Overlocker: Shane Salgado MD #### PSAD #### [address] [address] Overlocker: Bimal Woo mean volume (Bld) [Entitic vol]8.8 fL Normal8.1-13.5Bu[facility]rus Community HospitalComment on above:Performed By: #### SRINI, BMP #### [address] [place] [address] Overlocker: Shane Salgado MD #### PSAD #### [address] [address] Overlocker: Ayleen Woo (Bld) [#/Vol]267 10*3/iTAyioeu177-598 [facility] HospitalComment on above:Performed By: #### CDP, BMP #### [address] [place], [place] [id number] Overlocker: Shane Salgado MD #### PSAD #### [address] [address] Overlocker: Christian Garcia [facility] (Bld) [#/Vol]4.51 10*6/uLNormal4.21-5.77 [facility] HospitalComment on above:Performed By: #### SRINI, BMP #### [address] [place] [id number] Overlocker: Shane Salgado MD #### PSAD #### [address] [address] Overlocker: Christian Garcia MDMOHAWK VALLEY [facility] (Bld) [#/Vol]4.3 10*3/uLNormal3.5-11.3MOhioHealth O'Bleness HospitalComment on above:Performed By: #### SRINI, BMP #### [address] [place] [address]83 Overlocker: Shane Salgado MD #### PSAD #### [address] [address] Overlocker: ROYA Woo, Diagnosticon [id number] and review of laboratory resultsAbnormalBon [facility] HospitalProstate specific Ag [Mass/Vol]8.77 ng/mLHigh0.00 - 4.00 ng/mLBon [facility] on above:The Jerrell ECLIA assay is used. Results obtained with different assay methods cannot be used interchangeably. Bon [facility] Methodist HospitalProstatic Spec. Ag8.77 ng/mLHigh0.00-4.00Bu[facility] Community HospitalComment on above:Result Comment: The Jerrell ECLIA assay is used. Results obtained with different assay methods cannot be used interchangeably.Performed By: #### CDP, BMP #### [facility] [address] [place] [address] [address] [place], [place] [address] Overlocker: Shane Salgado MD #### PSAD #### [place] [address] [place], [place] [id number] Overlocker: ANKITA Wooult,Urineon [id number],UrineSpecimen Description .CLEAN CATCH URINE Special Requests Site: Urine Culture NO SIGNIFICANT GROWTH Report Status FINAL 03/16/2024White HospitalComment on above: Performed By: #### URC #### [facility] [address] [place], [place] [id number] Overlocker: Christian Garcia MD [facility] [address] [place] [address] [address] [place], [place] [address] Overlocker: Shane Salgado MDUrinalysis w/ Microon [id number], SemiQt,UrNegativeNormalNEGBucyrus Community HospitalComment on above:Performed By: #### UAMIC #### [address] [place] [address] Overlocker: Shane Salgado MDBlood, UrineNegativeNoNewark Hospital Comment on above:Performed By: #### UAMIC #### [facility] [address] [place] [address] [address] [place] [address] Overlocker: ANKITA Mcelroylarity ()ClearNormalCLEARBucyrus Community Hospital Comment on above:Performed By: #### UAMIC #### [address] [place] [address] Overlocker: ANKITA Mcelroyolor (U)YellowNoalYOur Lady of Mercy Hospital Comment on above:Performed By: #### UAMIC #### [facility] [address] [place], [place] 2605883 Overlocker: Shane Salgado MDEpithelial cells LM Ql (Urine sed)0 TO 0Hiptqr9-5 [facility] Community HospitalComment on above:Performed By: #### UAMIC #### [address] [place], [place] 4259483 Overlocker: Shane Salgado MDGlucose Ql (U)NegativeNormalNEGLima Memorial Hospital HospitalComment on above:Performed By: #### UAMIC #### [address] [place], [place] 5072283 Overlocker: Shane Salgado MDKetones Ql (U)NegativeNormalNEGMercy [place] HospitalComment on above:Performed By: #### UAMIC #### [address] [place], [facility]83 Overlocker: Shane Salgado MDLeukocyte esterase Test strip Ql (U)SMALLAbnormal NEGBucyrus Community HospitalComment on above:Performed By: #### UAMIC #### [address] [place], [place] [phone] Overlocker: Shane Salgado MDNitrite,UrNegativeNormalFayette County Memorial Hospital Comment on above:Performed By: #### UAMIC #### [facility] [address] [place] [address] Dr. [place], [facility]83 Overlocker: ALANNA Mcelroy,Ur6.5Ieqskf7.0-9.0[facility] Hospitalcy The Hospital Of Central ConnecticutComment on above:Performed By: #### UAMIC #### [facility] [address] [place] [address] Dr. [place], [facility]83 Overlocker: ALANNA Mcelroyrotein Ql (U)NegativeNormalNEGMerWaterbury HospitalComment on above:Performed By: #### UAMIC #### [facility] [address] [place] [address] [address] [place], [place] 1018783 Overlocker: JUAN FRANCISCO Mcelroypec. Marcellus,Ur1.601Ctllku6.010-1.020Bucyrus Community HospitalComment on above:Performed By: #### UAMIC #### [facility] [address] [place] [address] [address] [place] [address] Overlocker: Martir Mcelroy RBC's0 TO 7Lkilzr0-9UoosvOhioHealth O'Bleness Hospital Comment on above:Performed By: #### UAMIC #### [facility] [address] [place] [address] [address] [place] [address] Overlocker: Martir Mcelroy WBC's2 TO 6Gbgqga8-3RnjnoBucyrus Community Hospital Comment on above:Performed By: #### UAMIC #### [facility] [address] [place] [address] Dr. [place], [place] [id number] Overlocker: Shane Salgado MDUrobilinogen,UrNormalNormal0.0-1.0Bu[facility]rus Community HospitalComment on above:Performed By: #### UAMIC #### [address] [place], [place] 2249083 Overlocker: ROYA Mcelroy Diagnosticon [id number] and review of laboratory resultsAbnormalRIVERSIDE REGIONAL MEDICAL CENTERProstate specific Ag [Mass/Vol]11.80 ng/mLHigh0.00 - 4.00 ng/mLRIVERSIDE REGIONAL MEDICAL CENTERCombeaumont hospital on above:The Jerrell ECLIA assay is used. Results obtained with different assay methods cannot be used interchangeably. [facility] MEDICAL CENTERProvider Letteron [id number] Letter October 20, 2022 JOSE ARMANDO TINOCO [id number] [place] [phone] : 1955 Dear Mr. Jose Armando Tinoco , This letter is to inform you the the providers of [employer] [facility] (Dr. Fritz Arellano) will no longer be responsible for your routine medical care due to your repeated non compliance concerning your elevated PSA level and needing further testing. Emergency care only will be provided for the thirty (30) days following this letter. During this time period we suggest that you find another physician for your medical needs. A listing of area physicians can be found on [facility]'s website at [email or web address] or you may contact your health plan. We will be glad to forward your records to your new physician as long as we receive a signed release of records form. Sincerely, Firtz Arellano M.D., F.A.C.S. [facility] [address] [place], [place] [address] [address] , option #3 SENT REGULAR/CERTIFIED [facility] HospitalProvider Letter October 20, 2022 JOSE ARMANDO TINOCO [address] [place] [phone] : 1955 Dear Jose Armando Earnest , This letter is to inform you the the providers of [facility], [facility] (Dr. Fritz Arellano) will no longer be responsible for your routine medical care due to your repeated non compliance concerning your elevated PSA level and needing further testing. Emergency care only will be provided for the thirty (30) days following this letter. During this time period we suggest that you find another physician for your medical needs. A listing of area physicians can be found on [facility]'s website at [email or web address] or you may contact your health plan. We will be glad to forward your records to your new physician as long as we receive a signed release of records form. Sincerely, Fritz Arellano M.D., F.A.C.S. [facility] [address] [place], [place] [address] [address] , option #3TriHealthPatient Letter FTMCon [phone] Letter [facility] September 06, 2022 JOSE ARMANDO TINOCO [address] [place] [phone] : 1955 Dear Mr. Jose Armando Tinoco, [facility] has been trying to reach you concerning scheduling a MRI of the prostate and/or aprostate biopsy due to your elevated PSA level. The office has left several messages without a response from you. Your PSA level was done 05/27/22 AND IS 9.9. The normal PSA level is 0-4. Please call the office so we can get you scheduled for the MRI and/or a prostate biopsy to rule out prostate cancer. Thank you for your cooperation in this matter, so we can continue to provide you with quality care. Sincerely, Fritz Arellano M.D., F.A.C.S. option #3 SENT REGULAR/CERTIFIED MAILNormalNewark HospitalCoding Summary.on [id number] Summary. CD:[id number]+PGhlYWQ+[id number]KALlXZiSjtdUgX H3ilLAqOXGq [file] YXBzZTog (more content not included)...NormalFisher Medstar Union Memorial HospitalPSA Totalon [id number] specific Ag [Mass/Vol]9.9 ng/mLHigh0.1-3.5Fisher [facility] Union Memorial HospitalComment on above:Result Comment: The concentration of PSA determined by different manufacturers can vary due to differences in assay methods and reagent specificity. Values obtained from different assay methods cannot be used interchangeably. The methodology used for this result was chemiluminescence using [employer]'s Access Hybritech PSA reagent.Performed By: #### [id number] #### [facility] [address] [place], [place] [address]Zmfomnl Educationon [id number] EducationOncology Cancer Screening for Men A cancer screening is a test or exam that checks for cancer. Your health care provider will recommend specific cancer screenings based on your age, personal history, and family history of cancer. Work with your health care provider to create a cancer screening schedule that protects your health. Why is cancer screening done? Cancer screening is done to look for cancer in the very early stages, before it spreads and becomesharder to treat and before you would start to notice symptoms. Finding cancer early improves the chances of successful treatment. It may save your life. Who should be screened for cancer? All men should be screened for colorectal cancer and skin cancer. Your health care provider may recommend screenings for other types of cancer if: ? You had cancer before. ? You have a family member with cancer. ? You have abnormal genes that could increase the risk of cancer. ? You have risk factors for certain cancers, such as smoking. When you should be screened for cancer depends on: ? Your age. ? Your medical history and your family's medical history. ? Certain lifestyle factors, such as smoking. ? Environmental exposure, such as to asbestos. What are some common cancer screenings? Lung cancer Lung cancer screening is done with a CT scan that looks for abnormal cells in the lungs. Discuss lung cancer screening with your health care provider if you are 55?74 years old and if any of the following apply to you: ? You currently smoke. ? You used to smoke heavily. ? You have a smoking history of 1 pack a day for 30 years or 2 packs a day for 15 years. ? You have quit smoking within the past 15 years. If you smoke heavily or if you used to smoke, you may need to be screened every year. Prostate cancer Prostate cancer screening is done with blood tests and an exam in which a health care provider usesa gloved finger to check prostate size (digital rectal exam). You may need to be screened for prostate cancer if: ? You have risk factors of prostate cancer, such as being or having a close familymember with prostate cancer. ? You have inherited gene changes or a genetic condition, including BRCA1 or BRCA2 gene mutations or Thompson syndrome. ? You have symptoms of prostate cancer, such as problems urinating or erectile dysfunction. Prostate cancer screening for men with average risk may start at age 50. Men with risk factors may need to be screened earlier at age 40?45. Once you have been screened for prostate cancer, future screening may be recommended based on the results of your blood tests. Colorectal cancer All adults should have screening for colorectal cancer starting at age 50 and continuing until age 75. Your health care provider may recommend screening at age 45. You will have tests every 1?10 years, depending on your results and the type of screening test. If you have a family history of colon or rectal cancer or other risk factors, you may need to start having screenings earlier. Talk with your health care provider about which screening test is right for you and how often you should be screened. Colorectal cancer screening looks for cancer or for growths called polyps that often form before cancer starts. Tests to look for cancer or polyps include: ? Colonoscopy or flexible sigmoidoscopy. For these procedures, a flexible tube with a small camera is inserted into the rectum. ? CT colonography. This test uses X-rays and a contrast dye to check the colon for polyps. If a polyp is found, you may need to have a colonoscopy so the polyp can be located and removed. Tests to look for cancer in the stool (feces) include: ? Guaiac-based fecal occult blood test (FOBT). This test detects blood in stool. It can be done at home with a kit. ? Fecal immunochemical test (FIT). This test detects blood in stool. For this test, you will need to collect stool samples at home. ? Stool DNA test. This test looks for blood in stool and any changes in DNA that can lead to colon cancer. For this test, you will need to collect a stool sample at home and send it to a lab. Skin cancer Skin cancer screening is done by checking the skin for unusual moles or spots and any changes in existing moles. Your health care provider should check your skin for signs of skin cancer at every physical exam. You should check your skin every month and tell your health care provider right away if anything looks unusual. Men with a uarfdc-cdgr-ponbsk risk for skin cancer may want to see a skin care instructor (grocery department manager) for an annual body check. Where to find more information ? National Cancer [place]: https://www.cancer.gov/about-cancer/screening ? Centers for Disease Control and Prevention: https://www.cdc.gov/cancer/dcpc/prevention/screening.htm ? [employer] [employer]: https://www.cancer.org/latest-news/3-obszyi-rqxubtgyk-zhgmx-bgk-but.html Contact a health care (more content not included)...NormalMacieler Medstar Union Memorial HospitalUrology Office/Clinic Noteon [id number] Office/Clinic NoteChief Complaint 1yr PSA HPI Staff 1yr to BPH & Incomplete Bladder Emptying. (Last seen in our office by FAUZIA) *Tamsulosin 0.4mg BID therapy. Pt did call our office on 01/20/22 c/o rectal pain. Was advised to call PCP. Pt denies all urinary complaints at this time. Did not get PSA done for today's encounter. PSA was drawn in office. History of Present Illness I have reviewed and verified the staff HPI to be accurate for this encounter. Review of Systems PHQ Score Initial Depression Screen Score: 0 ROS - Provider Constitutional: denies weight loss, denies hot flashes. Eyes: denies eye problems. Gastrointestinal: denies nausea, denies vomiting. Cardiovascular: denies chest pain or angina. Integumentary: no dryness Musculoskeletal: denies musculoskeletal symptoms. ENMT: denies otolaryngeal symptoms. Respiratory: no shortness of breath. Heme/Lymph: denies easy bleeding tendency, denies easy bruising tendency. Psychiatric: no confusion, no anxiety. Genitourinary: denies dysuria, denies hematuria, denies discharge, denies urinary frequency, deniesurinary hesitancy, denies nocturia, denies incontinence, denies genital sores, denies decreased libido, and denies erectile dysfunction. Physical Exam Vitals & Measurements HR: 74(Peripheral) RR: 16 BP: 132/90 HT: 70 in HT: 177 cm WT: 75 kg WT: 165 lb BMI: 23.94 General Appearance: alert, no distress, well nourished, well developed male. Genitourinary: normal scrotum, normal testes, normal urethra, normal epididymis, normal vas deferens/spermatic cord. Flank Pain: none. Bladder: nonpalpable. Prostate: normal prostate, estimated weight 35 gms, no hard nodule observed. Assessment/Plan 1. BPH with urinary obstruction (N40.1: Benign prostatic hyperplasia with lower urinary tract symptoms) Flomax 0.4mg BID UA today has small Leuks. Denies any UTI sxs. Overall pt states that he is doing well with urination and has no complaints. Pt denies hematuria, dysuria, urgency, frequency. Educated pt that if he has any discharge, dysuria or cloudy urine to contact our office. Pt understands. Pt will f/u in 1 year w/PSA and we will call him with the results of today's blood draw. If pt has any concerns he can contact our office. pt understands and acknowledges. 2. Feeling of incomplete bladder emptying (R39.14: Feeling of incomplete bladder emptying) marked improvement with Flomax PVR last OV 0mL. 3. Prostate cancer screening (Z12.5: Encounter for screening for malignant neoplasm of prostate) Did not get PSA done for today's encounter. PSA was drawn in office. Follow-up With When Contact Information FABIAN PALMER, JOHN Kennedy In 1 year 05/28/2023 EDT [facility] [address], [place] [address]- [phone] Additional Instructions: PSA Patient Education Cancer Screening for Men I, Carole Kaufman, personally scribed for Dr. Arellano on 05/27/2022 09:26:41. . Documentation recorded by the scribe, Carole Kaufman, accurately reflects the services(s) I performed and decisions made by me. Problem List/Past Medical History Ongoing BPH with urinary obstruction Feeling of incomplete bladder emptying Heart murmur Hypospadias Kidney stones Prostate cancer screening Urinary retention Historical No qualifying data Procedure/Surgical History Colonoscopy, Hemorrhoid. Medications tamsulosin 0.4 mg Cap, 0.4 mg= 1 cap(s), Oral, BID, 11 refills Allergies No Known Allergies No Known Medication Allergies Social History Tobacco Former smoker, quit more than 30 days ago Tobacco Use:. Never Smokeless Tobacco Use:. Cigarettes, Stopped age 66 Years., 05/27/2022 Family History Kidney stone: Mother. Immunizations Vaccine Date Status SARS-CoV-2 (COVID-19) Ad26 vaccine 10/07/2020 Recorded SARS-CoV-2 (COVID-19) Ad26 vaccine 09/16/2020 Recorded influenza virus vaccine, inactivated 11/09/2019 Recorded influenza virus vaccine, inactivated 12/06/2018 Recorded influenza virus vaccine, inactivated 12/04/2017 Recorded influenza virus vaccine, inactivated 12/17/2016 Recorded influenza virus vaccine, inactivated 12/01/2015 Recorded influenza virus vaccine, inactivated 12/13/2014 Recorded influenza virus vaccine, inactivated 12/21/2013 Recorded influenza virus vaccine, inactivated 12/27/2012 Recorded Lab Results Ambulatory Point of Care Results Bilirubin Urine Dipstick: Negative (05/27/22 08:33:00) Blood Urine Dipstick: Negative (05/27/22 08:33:00) Glucose Urine Dipstick: Negative (05/27/22 08:33:00) Ketones Urine Dipstick: Negative (05/27/22 08:33:00) Leukocytes Urine Dipstick: 1+ Small (05/27/22 08:33:00) Nitrite Urine Dipstick: Negative (05/27/22 08:33:00) Protein Urine Dipstick: Negative (05/27/22 08:33:00) Specific Marcellus Urine Dipstick: 1.015 (05/27/22 08:33:00) Urine Appearance Urine Dipstick: Clear (05/27/22 08:33:00) Urine Color Urine Dipstick: Yellow ( (more content not included)...Normal [facility] HospitalComment on above:Result Comment: Electronically Signed By: Fritz ARELLANO MD\\.br\\Date and Time Signed: 05/27/22 09:28 EDT\\.br\\Electronically Co-Signed By: Carole Kaufman MA\\.br\\Date and Time Co- Signed: 05/27/22 09:26 EDTRetail - Clinical Noteon [id number] - Clinical [id number]#1.00CD:127NormalNewark HospitalCNOVon [id number] Visit ([facility]) JOSE ARMANDO TINOCO ([id number]) 1955 M Date Time Provider Department 06/25/20 11:20 AM ALLAN VELASQUEZ [facility] During your visit today, we recorded the following information about you: Temperature Pulse Blood pressure Weight 97.9 degrees 80/minute 150/72 81.6 kg Height 1.778 m Allan Velasquez MD 06/25/2020 1:09 PM Signed New Patient Consult REASON FOR VISIT Jose Armando Tinoco is a 65 year old male who is scheduled for a consult at the request of Dr Gallegos for possible perirectal abscess. My final recommendations will be communicated back to the requesting physician by the way of the shared medical record, fax, or via US Mail History of Present Illness: Jose Armando Tinoco is a 65 year old male who was referred for evaluation of abscess Colonoscopy w/ Dr Gallegos - 03/27/2020- tubular adenoma -rectal polyp removed; Patient says since he had a colonoscopy in Mar he has had issues with his anus and is concerned he has an abscess. Started about 2w after his cscope with pain near the anus with swelling, difficulty sleeping. Noticed it got bigger with time. No fevers or chills, but feels warm around the area. He had been using a Rx topical steroid(?) on his bottom but hasn't used it for a few weeks. Last week during a BM he had a significant relief and thinks he might have had some drainage. During this time admits to some urinary retention symptoms. This has all improved over the last few days since this spontaneous relief of pain. He is feeling better over the last few days. No past medical history on file. denies PAST SURGICAL HISTORY Procedure Laterality Date - COLONOSCOPY 2020 double inguinal herniorraphy 8y ago No family history on file. Social History Tobacco Use - Smoking status: Former Smoker - Smokeless tobacco: Never Used - Tobacco comment: Pt. states he quit about 2.5yrs ago Substance Use Topics - Alcohol use: Not on file - Drug use: Not on file MEDICATIONS Current Outpatient Medications Medication Sig Dispense Refill - acetaminophen (TYLENOL ORAL) Take by mouth as needed. - IBUPROFEN ORAL Take by mouth once daily. No current facility-administered medications for this visit. CURRENT ALLERGIES ALLERGIES No Known Allergies PHYSICAL EXAMINATION BP 150/72 Pulse 80 Temp 97.9 Ht 5' 10 (1.78m) Wt 180 lb (81.6kg) SpO2 96% BMI 25.83 kg/(m2). General Appearance: Well appearing, alert, in no acute distress Skin: Skin color, turgor normal Anorectal: Left posterior induration with small punctate tract, likely healing perianal abscess, small thrombosed hemorrhoid(pea sized). CHRISTINA-engorged hemorrhoidal cushions Anoscopy- patient placed in prone-jacknife. Anoscope inserted into the anal canal. Enlarged and engorged internal hemorrhoids, grade 3; no clear internal opening was seen, though exam was limited. Anoscope was then removed, patient tolerated well. Manager Business Systems- yes renetta Diagnostic tests reviewed for today's visit: I have confirmed and edited as necessary, the PFSH and ROS obtained by others. Assessment ASSESSMENT Likely healing perianal abscess with small left posterior induration. No residual abscess to be drained RECOMMENDATION - 5d augmentin - follow-up PRN if he continues to have drainage symptoms or any concern for development of a vhbwmyg-de-gpo Allan Velasquez MD Referring Provider: SELF [200] Allergies As of Date: 06/25/2020 (No Known Allergies) Date Reviewed: 06/25/2020 Reviewed by: Renetta Joseph Ma - Fully Assessed Reason for Visit: New Patient [172] Primary Visit Diagnosis:Perianal abscess [K61.0] Other Visit Diagnosis:External hemorrhoid, thrombosed [K64.5] Order(s):amoxicillin-clavulanic acid (AUGMENTIN) 875-125 mg per tabletTake 1 tablet by mouth twice daily for 5 days.Disp: 10 tabletRfl: 0 Prescriptions as of 06/25/2020 Sig: TYLENOL ORAL Take by mouth as needed. IBUPROFEN ORAL Take by mouth once daily. AMOXICILLIN 875 MG-POTASSIUM * Take 1 tablet by mouth twice * Problem List As Of Date: 06/25/2020 (None) Prescriptions ordered this encounter Disp Refills Start End AMOXICILLIN 875 MG-POTASSIUM CLAVULA* 10 t* 0 06/25/2020 06/30/2020 Class: Print RX Route: ORAL Sig: Take 1 tablet by mouth twice daily for 5 days. Encounter Status:Closed by ALLAN VELASQUEZ on 06/25/20NoUniversity Hospitals Cleveland Medical CenterVID-19 SOFIAon [id number]- SOFIANegativeNegativeMetrohealth Main Campus Medical Center CtrComment on above:This is a duplicate test result based off of the Tammie SARS Antigen (FER) test performed within theMicrobiology department.Amaya 36-11-5594OMWM Antigen (LFIA)[facility] LIPID PROFILEon 00-33-7968DLKX-HDL RATIO NORMSEE [facility] HospitalComment on above:Result Comment: 3.3 - 4.4 LOW RISK 4.4 - 7.1 AVERAGE RISK 7.1 - 11.0 MODERATE RISK >11.0 HIGH RISKPerformed By: #### CMP, PSASC, LIPID #### [facility] [address] [id number] Manju KarenCholesterol [Mass/Vol]228 mg/dLCritically high<=200Ohio[facility] Methodist HospitalComment on above:Performed By: #### CMP, PSASC, LIPID #### [facility] [address] [address] Manju KarenCholesterol in HDL [Mass/Vol]118 mg/dLUniversity Hospitals Geneva Medical Center Comment on above:Performed By: #### CMP, PSASC, LIPID #### [facility] [address] [address] Manju KarenCholesterol in LDL [Mass/Vol]104.8 mg/dLUniversity Hospitals Geneva Medical Center Comment on above:Performed By: #### CMP, PSASC, LIPID #### [facility] [address] [id number] Manju KarenCholesterol.total/Cholesterol in HDL [Mass ratio]1.9 {ratio}Normal [facility] HospitalComment on above:Performed By: #### CMP, PSASC, LIPID #### [facility] [address] [id number] Manju KarenHDL NORMAL> or = 60 mg/dl - LOW CARDIOVASCULAR RISK <40 mg/dl - HIGH CARDIOVASCULAR RISKUniversity Hospitals Geneva Medical CenterComment on above:Performed By: #### CMP, PSASC, LIPID #### [facility] [address] [id number] Manju KarenLDL CALC NORMALSEE Brown Memorial HospitalComment on above: Result Comment: <100 mg/dl OPTIMAL 100 - 129 mg/dl NEAR OR ABOVE OPTIMAL 130 - 159 mg/dl BORDERLINE HIGH 160 - 189 mg/dl HIGH >190 mg/dl VERY HIGHPerformed By: #### CMP, PSASC, LIPID #### [facility] [address] [address] Manju KarenTriglyceride [Mass/Vol]26 mg/dLNormal<=150[facility] Comment on above:Performed By: #### CMP, PSASC, LIPID #### [facility] [address] [address] Manju KarenVLDL CALC5.2 mg/dLNormalThe [facility] HospitalComment on above: Performed By: #### CMP, PSASC, LIPID #### [facility] [address] [address] Manju KarenPROF 14(COMP METB)on 09-39-1593Pbyrqob [Mass/Vol]3.9 g/dLNormal 3.5-5.0[facility] HospitalComment on above:Performed By: #### CMP, PSASC, LIPID #### [facility] [address] [place] [address] Manju KarenAlbumin/Globulin [Mass ratio]1.1 {ratio}NormalOhiohealth Riverside Methodist Hospital Comment on above:Performed By: #### CMP, PSASC, LIPID #### [facility] [address] [place] [address] Manju KarenALP [Catalytic activity/Vol]54 U/ZLitatm30-711FgmOhiohealth Riverside Methodist Hospital Comment on above:Performed By: #### CMP, PSASC, LIPID #### [facility] [address] [address] Manju KarenALT [Catalytic activity/Vol]26 U/DHcxbxj80-94GxxOhiohealth [facility]ide Methodist Hospital Comment on above:Performed By: #### CMP, PSASC, LIPID #### [facility] [address] [place], [place] [address] Manju KarenAnion gap [Moles/Vol]9.5 mmol/LNormalOhiohealth Riverside Methodist HospitalComment on above:Performed By: #### CMP, PSASC, LIPID #### [facility] [address] [place], [place] [address] Manju KarenAST [Catalytic activity/Vol]22 U/JCoetid84-72ZpjOhiohealth Riverside Methodist Hospital Comment on above:Performed By: #### CMP, PSASC, LIPID #### [facility] [address] [address] Manju KarenBilirubin [Mass/Vol]0.5 mg/dLNormal0.2-1.3TKettering Health Comment on above:Performed By: #### CMP, PSASC, LIPID #### [facility] [address] [address] Manju KarenCalcium [Mass/Vol]9.1 mg/dLNormal8.4-10.2[facility] Comment on above:Performed By: #### CMP, PSASC, LIPID #### [facility] [address] [place] [address] Manju KarenChloride [Moles/Vol]105 mmol/NSmjgeo58-435HetOhiohealth Riverside Methodist Hospital Comment on above:Performed By: #### CMP, PSASC, LIPID #### [facility] [address] [place] [address] Manju KarenCO2 [Moles/Vol]30.8 mmol/LCritically high22.0-30.0[facility] HospitalComment on above:Performed By: #### CMP, PSASC, LIPID #### [facility] [address] [place] [address] Majnu KarenCreatinine [Mass/Vol]0.92 mg/dLNormal0.66-1.25The [facility] Comment on above:Performed By: #### CMP, PSASC, LIPID #### [facility] [address] [place] [address] Manju KarenEGFR-AF JAPANESE>60Normal>=60The [facility] HospitalComment on above: Performed By: #### CMP, PSASC, LIPID #### [facility] [address] [place] [address] Manju KarenEGFR-NON AF JAPANESE>60Normal>=60The [facility] HospitalComment on above:Performed By: #### CMP, PSASC, LIPID #### [facility] [address] [phone] Manju KarenGlobulin (S) [Mass/Vol]3.7 g/dLNormalThFlower HospitalComment on above:Performed By: #### CMP, PSASC, LIPID #### [facility] [address] [address] Manju KarenGlucose [Mass/Vol]111 mg/dLCritically uxak97-606Kor [facility] HospitalComment on above:Performed By: #### CMP, PSASC, LIPID #### [facility] [address] [address] Manju KarenPotassium [Moles/Vol]4.3 mmol/LNormal3.4-5.0The [facility] Comment on above:Performed By: #### CMP, PSASC, LIPID #### [facility] [address] [address] Manju KarenProtein [Mass/Vol]7.6 g/dLNormal6.1-8.2The [facility] HospitalComment on above:Performed By: #### CMP, PSASC, LIPID #### [facility] [address] [address] Manju KarenSodium [Moles/Vol]141 mmol/OYvdvxt883-544Clp [facility] Comment on above:Performed By: #### CMP, PSASC, LIPID #### [facility] [address] [address] Manju KarenUrea nitrogen [Mass/Vol]27.0 mg/dLCritically high9.0-20.0The [facility] HospitalComment on above:Performed By: #### CMP, PSASC, LIPID #### [facility] [address] [address] Manju KarenUrea nitrogen/Creatinine [Mass ratio]29.3 mg/mgNoMartins Ferry HospitalCombeaumont hospital on above:Performed By: #### CMP, PSASC, LIPID #### [facility] [address] [address] Manju Jasmin Vital Signs Date TimeVital SignValuePerforming BoupegiuqOsqonaep32-33-5129 08:41-0400Blood Pressure LocationPasteffanie ARELLANO [facility]04-07-2023 08:41-0400Diastolic blood mm[Hg]Fritz ARELLANO [facility]04-07-2023 08:41-0400Heart rate74 /minPasteffanie ARELLANO [facility]04-07-2023 08:41-0400Respiratory rate16 /minPatricелена ARELLANO [facility]04-07-2023 08:41-0400Systolic blood pekqnmaw862 mm[Hg]Fritz ARELLANO [facility] Encounters Encounter DateEncounter TypeCare ProviderFacilityStart: 12-20-2024 End: 79-36-9921steezgmytwJZSXKJ WEILANDMercy Tiffin HospitalStart: 12-20-2024 End: 18-34-9246Dsxxlemczd hospital visit by Lamonte Laboratory Schedule [facility] LABComment on above:Elevated PSAStart: 05-29-2024 End: 96-49-8087vildzrzreoBKERVKJose [facility] HospitalStart: 05-29-2024 End: 90-72-7802Sjrkruzugd hospital visit by Kylah Beard MD Work Phone: [facility] MRIComment on above:Elevated PSA; BPH with obstruction/lower urinary tract symptomsStart: 05-20-2024 End: 96-82-5843tyniyeroxlZAAERESandra [place] [facility] HospitalStart: 05-15-2024 End: 90-58-0332qjfutdgkiaFAMCIJJose [facility] HospitalStart: 05-15-2024 End: 30-08-8792Bcljzwzkkm hospital visit by Delicia Tierney APRN - TELECOMM[employer]ICATIONS LINE MECHANIC Work Phone: [facility] LABComment on above:Elevated PSA; BPH with obstruction/lower urinary tract symptomsStart: 03-15-2024 End: 60-53-6289cjteisptiaVWOMOCY W PARSELLMercy Fort Collins HospitalStart: 06-02-2023 ambulatoryFritz ARELLANOFacility:EU BellevueStart: 03-16-2023 End: 42-14-1541Chmvqcfdnp hospital visit by Harinder Xiong APRN - PASCUAL Work Phone: mthz LaboratoryComment on above:Elevated PSAStart: 05-27-2022 End: 98-73-6987reaioygzvvTdyzpxr R WATERSFacility:FTMCStart: 05-27-2022 End: 41-49-4542Npnioui encounter procedureFritz ARELLANO [facility] start: 05-26-2021 End: 79-18-8988Ifhmxth encounter procedureJEROSEMARIE PHAMRY [facility] start: 12-20-2020 End: 66-84-4601howjmsunjgUBLQY PARKERFacility:T1Ghuoi: 06-17-2020 End: 86-22-8283Ndvnkfc encounter procedureExternal ProviderEXTERNAL-NON [facility] Start: 24-33-4004Thzduft OnlyExternal ProviderExternal-NonCCFStart: 06-16-2020 End: 75-36-8567Urbvunf encounter procedureAllan Velasquez MD Work Phone: [facility]OSPITALtart: 02-11-8978Swlfjrc Only Allan Velasquez MD Work Phone: Colorectal SurgeryStart: 03-25-2020 End: 20-97-4017Hqljaax encounter procedureMatthew GallegosPfjatkg-Lse-Dgvvtjzo Testing Start: 61-43-2620Rmdpgarhx for general adult medical examination without abnormal findingsDR DOCTOR MISCTOur Lady of Mercy Hospital - Andersontart: 03-06-2020 End: 76-98-8914esdewgxrhrFB DOCTOR MISCFacility:K3Irigy: 03-06-2020 End: 98-65-9703Ydknaxwew for general adult medical examination without abnormal findingsDR DOCTOR MISCFacility:H1 Procedures DateProcedureProcedure DetailPerforming ClinicianStart: 48-19-9618Lfems of prostate specific antigen totalAlfred Ferreira PA-C Work Phone: Start: 33-93-8042Cjs pelvis w/o & w/contrast material Lory Beard MD Work Phone: Start: 32-79-9080Lmjhc metabolic panel calcium total Rosie W Dallin [employer] Work Phone: start: 86-50-3640Etaqt of prostate specific antigen totalThomas Keaton PALMER Work Phone: Start: 36-24-7071YQFLHUZG LABExternal ProviderStart: 76-91-0980IWYURYQV PROCEDUREExternal ProviderStart: 64-08-5281WG ED PATIENT INFORMATIONJoseph Umang Velasquez MD Work Phone: Start: 17-80-4203SMLN Antigen (LFIA)Matthew Gallegos Start: 60-35-1643NKX screeningDARYL PARKERComment on above:Performed By: #### CMP, PSASC, LIPID #### [facility] [address] [place] [address] Manju KarenColonoscopyJENNIFER MALIK Hemorrhoids (disorder)MICHELE GAN Plan of Treatment DateCare ActivityDetailAuthorStart: 86-47-9049Vkvxmmejsaj Syncytial Virus (RSV) or age 60 yrs+ (1 - 1-dose 75+ series)Respiratory Syncytial Virus (RSV) or age 60 yrs+ (1 - 1-dose 75+ series)Jorge [facility] HospitalStart: 46-59-6484Lhdcrdqs specific antigen measurementProstate Specific Antigen (PSA) Screening or MonitoringLewisGale Hospital Pulaskiart: 12-24-2024 End: 78-25-5561Zokhnrl encounter qkrrnrgki74/04/2025 9:00 AM EST Office Visit [facility] Part of [address] [place] [address] Alfred Ferreira, CINDI [address] [place] [address] [address] [place] [address] 6M psa, 12/12/2024 reminded pt to get PSA done before appt-[facility] Part of [facility] ConnecticutComment on above:6M psa, 12/12/2024 reminded pt to get PSA done before appt-VRStart: 64-41-4062HCDOA-19 Vaccine ( season) COVID-19 Vaccine ( season)[facility] HealthStart: 09-20-2024 Influenza vaccinationCentra HealthStquinhagak: 06-05-2024 End: 74-00-7563Gqiupen encounter zykjkldel50/16/2025 8:15 AM EDT Office Visit [facility] Part of [address] [place] [address] Alfred Ferreira, PAManuel [address] [place] [address] [address] [place] [address] review prostate MRI/ [facility] Part [facility] CenterComment on above: review prostate MRI/ PSAStart: 05-29-2024 End: 01-40-6417Cerzmak encounter zxhcjreiu56/09/2025 10:45 AM EDT Appointment [facility] MRI [address] [place], [place] [id number] Lory Beard MD [address] [facility], [address] [place], [place] [id number] [facility] Comment on above:JOELOStart: 99-48-6795Emibglyt specific antigen measurementProstate Specific Antigen (PSA) Screening or MonitoringBON HOLZER HOSPITALStart: 27-75-9931Kjgmdu Wellness Visit (Medicare Advantage)Annual Wellness Visit (Medicare Advantage)Bon [facility] HospitalStart: 10-22-2023 COVID-19 Vaccine ( season)COVID-19 Vaccine ( season)Bon [facility] HospitalStart: 14-30-3435Ytfyiqhul vaccinationFlu vaccine (#1)Bon [facility] HospitalStart: 03-30-2023 End: 23-14-7284Rxtrvrc encounter raxmstmol05/08/2024 2:30 PM EST [facility] [place] [address] Lroy Beard MD [address] [facility], [address] [place] [address] 2w PSA [facility] UROLOGKettering Health TroyComment on above:2w PSAStart: 93-19-3127Lplyfa Wellness Visit (Medicare Advantage)Annual Wellness Visit (Medicare Advantage)[facility]alsart: 75-99-3666TEXCQ-19 Vaccine ( season)COVID-19 Vaccine ( season)[facility] Start: 00-71-2712Peimnvmiz aortic aneurysm screeningAAA screenBON HOLZER HOSPITALStart: 46-02-4212Jefotjdmoyia 65+ years Vaccine (1 - PCV)Pneumococcal 65+ years Vaccine (1 - PCV)[facility] HOSPITALStart: 68-59-3775Edsevyimg vaccinationINFLUENZA (Season Ended)[facility] Hospitaltart: 46-01-3102Pqlflpjvolk Syncytial Virus (RSV) or age 60 yrs+ (1 - 1-dose 60+ series)Respiratory Syncytial Virus (RSV) or age 60 yrs+ (1 - 1-dose 60+ series)BON [facility] Daytonart: 61-23-9502XHUDKRMU CANCER SCREENING DISCUSSION PROSTATE CANCER SCREENING DISCUSSIONAvita Health System Galion Hospitaltart: 05-24-2007 Pneumococcal 50+ years Vaccine (1 of 1 - PCV)Pneumococcal 50+ years Vaccine (1 of 1 - PCV)[facility] HealthStart: 80-93-8479Aeqrsubtl for malignant neoplasm of colonAvita Health System Galion Hospitaltart: 09-64-3062Sedepmpb vaccine (1 of 2) Shingles vaccine (1 of 2)[facility]ENTERStart: 38-02-9843TFWIUCHR VACCINE (1 of 2)SHINGRIX VACCINE (1 of 2)[facility] Hospitaltart: 2002 DIABETES SCREENDIABETES SCREENAvita Health System Galion Hospitaltart: 54-13-3507Ezkjajwbe for malignant neoplasm of colonRIVERSIDE REGIONAL MEDICAL CENTERStart: 23-36-4005Tguuk panel LipidsLifePoint Hospitalsart: 04-69-7814Xmhthnuu screenDiabetes [facility] Patrickart: 61-74-1414OZGMO SCREENLIPID SCREENTrihealth Good Samaritan Hospital Start: 51-33-1490JGhV/Tdap/Td vaccine (1 - Tdap)DTaP/Tdap/Td vaccine (1 - Tdap) [facility]ENTERStart: 26-77-0745Ubizn microalbumin profileDTAP,TDAP,TD (1 - Tdap)[facility] Hospitaltart: 42-74-9344FWRROQKNE C SCREENINGHEPATITIS C SCREENINGAvita Health System Galion Hospitaltart: 84-55-8145Medhmoniv C screeningHepatitis C [facility] HospitalStart: 37-67-1748WZN SCREENINGHIV SCREENING [facility] Hospitaltart: 05-94-2224SIR screeningHIV [facility] Start: 12-76-2800Zuqsy depression screening assessmentDEPRESSION SCREENING [facility] Hospitaltart: 14-85-4379Hlzgnbbrth ScreenDepression [facility] ED PATIENT INFORMATIONPT ED PATIENT INFORMATION Other 06/16/2020 [facility] Immunizations Immunization DateImmunizationNotesCare RgxntytqZqxysodt27-80-2511AFGK-FqG-3 (COVID-19) Ad26 vaccine, recombinantJENNIFER MALIK [facility] [id number]-BsS-6 (COVID-19) Ad26 vaccine, Donya GAN [facility] 09890831-74-1198sxeqfvqtl virus vaccine, unspecified formulationPaAudioCatch [facility]10-17-2019influenza virus vaccine, unspecified formulationPatrick [employer] [facility]10-15-2018influenza virus vaccine, unspecified formulationPaMilaap Social Venturesk [employer] [facility]10-28-2017influenza virus vaccine, unspecified formulationPaMilaap Social Venturesk [employer] [facility]10-11-2016influenza virus vaccine, unspecified formulationPaMilaap Social Venturesk [employer] [facility]10-24-2015influenza virus vaccine, unspecified formulationPaAudioCatch [facility]11-01-2014influenza virus vaccine, unspecified formulationPaAudioCatch [facility]11-07-2013influenza virus vaccine, unspecified formulationPaMilaap Social Venturesk [employer] [facility] Payers DatePayer CategoryPayerPolicy [id number] JANELLE BLUE CARD PPO [id number] 2020-Present [id number] [id number] 2.16.840.1.371686.3.[id number] 2.16.840.1.288998.3.57[id number] 2.16.840.1.085836.3.57[id number] 2.16.840.1.130971.3.57[id number] 2..0.1.340318.3.57[id number] 2.16.0.1.054073.3.57[id number] 2.16.0.1.109623.3.57[id number] 2.16.840.1.708233.3.57[id number] 2..0.1.568455.3.57[id number] 2.0.1.663502.3.579.2.173Self-paySelf Pay [id number] Social History DateTypeDetailFacilityTobacco smoking status NHISUnknown if ever smokedMetrohealth Main [facility] Center CtrStart: 31-29-1462Wux Assigned At BirthACMC Healthcare System Glen[facility] CtrStart: 68-55-6610Qrt Assigned At BirthNot on [facility] ClinicExposure to SARS-CoV-2 (event)Not sureCleveland ClinicStart: 05-26-2021 End: 25-53-2522Tkwviec smoking statusEx-smoker (finding)[facility] Tobacco smoking statusNeverExec[facility] start: 03-16-2023 End: 26-95-6574Tnd Assigned At BirthMaleExec[facility] End: 30-35-6994Boddzzf of tobacco useCurrent smokerInStaff End: 08-75-7291Phaydhp of tobacco useCigarette SmokerInStaff Start: 12-28-2022 End: 76-60-8845Tafkoti use and exposureSmokeless tobacco non-userHONORHEALTH [facility] ArchivasStart: 03-16-2023 End: 56-45-7337Xetarwp intakeCurrent drinker of alcohol (finding)InStaffStart: 03-16-2023 End: 08-53-7609Aufojta of Social functionHONORHEALTH [facility]ALE [facility] ArchivasStart: 49-48-7522Bikxmdv CommentdailyHONORHEALTH [facility] ArchivasStart: 18-35-3362IcaAthf (finding)SparkflyHistory of tobacco usePassive smokerBanner LUMI Mask Goals DatePatient GoalDesired Activity/State Functional Status MvacHnqyttvvzeHdcewfKugfnrpg64-86-8101Tnhlybqepw StatusN/AExec[facility] Clinical Notes 06-25-2020 to 05-27-2022 Note Date & YnvfLlroYtdjudbi04-50-7333 Hospital Discharge instructions Patient Education 05/27/2022 09:17:22 Cancer Screening for Men Cancer Screening for Men A cancer screening is a test or exam that checks for cancer. Your health care provider will recommend specific cancer screenings based on your age, personal history, and family history of cancer. Work with your health care provider to create a cancer screening schedule that protects your health. Why is cancer screening done? Cancer screening is done to look for cancer in the very early stages, before it spreads and becomesharder to treat and before you would start to notice symptoms. Finding cancer early improves the chances of successful treatment. It may save your life. Who should be screened for cancer? All men should be screened for colorectal cancer and skin cancer. Your health care provider may recommend screenings for other types of cancer if: You had cancer before. You have a family member with cancer. You have abnormal genes that could increase the risk of cancer. You have risk factors for certain cancers, such as smoking. When you should be screened for cancer depends on: Your age. Your medical history and your family's medical history. Certain lifestyle factors, such as smoking. Environmental exposure, such as to asbestos. What are some common cancer screenings? Lung cancer Lung cancer screening is done with a CT scan that looks for abnormal cells in the lungs. Discuss lung cancer screening with your health care provider if you are 55 74 years old and if any of the following apply to you: You currently smoke. You used to smoke heavily. You have a smoking history of 1 pack a day for 30 years or 2 packs a day for 15 years. You have quit smoking within the past 15 years. If you smoke heavily or if you used to smoke, you may need to be screened every year. Prostate cancer Prostate cancer screening is done with blood tests and an exam in which a health care provider usesa gloved finger to check prostate size (digital rectal exam). You may need to be screened for prostate cancer if: You have risk factors of prostate cancer, such as being or having a close family member with prostate cancer. You have inherited gene changes or a genetic condition, including BRCA1 or BRCA2 gene mutations or Thompson syndrome. You have symptoms of prostate cancer, such as problems urinating or erectile dysfunction. Prostate cancer screening for men with average risk may start at age 50. Men with risk factors may need to be screened earlier at age 40 45. Once you have been screened for prostate cancer, future screening may be recommended based on the results of your blood tests. Colorectal cancer All adults should have screening for colorectal cancer starting at age 50 and continuing until age 75. Your health care provider may recommend screening at age 45. You will have tests every 1 10 years, depending on your results and the type of screening test. If you have a family history of colon or rectal cancer or other risk factors, you may need to start having screenings earlier. Talk with your health care provider about which screening test is right for you and how often you should be screened. Colorectal cancer screening looks for cancer or for growths called polyps that often form before cancer starts. Tests to look for cancer or polyps include: Colonoscopy or flexible sigmoidoscopy. For these procedures, a flexible tube with a small camera isinserted into the rectum. CT colonography. This test uses X-rays and a contrast dye to check the colon for polyps. If a polypis found, you may need to have a colonoscopy so the polyp can be located and removed. Tests to look for cancer in the stool (feces) include: Guaiac-based fecal occult blood test (FOBT). This test detects blood in stool. It can be done at home with a kit. Fecal immunochemical test (FIT). This test detects blood in stool. For this test, you will need to collect stool samples at home. Stool DNA test. This test looks for blood in stool and any changes in DNA that can lead to colon cancer. For this test, you will need to collect a stool sample at home and send it to a lab. Skin cancer Skin cancer screening is done by checking the skin for unusual moles or spots and any changes in existing moles. Your health care provider should check your skin for signs of skin cancer at every physical exam. You should check your skin every month and tell your health care provider right away if anything looks unusual. Men with a nfwaqa-vszn-ojegbt risk for skin cancer may want to see a skin care instructor (grocery department manager) for an annual body check. Where to find more information National Cancer [place]: https://www.cancer.gov/about-cancer/screening Centers for Disease Control and Prevention: https://www.cdc.gov/cancer/dcpc/prevention/screening.htm [employer]: https://www.cancer.org/latest-news/2-fgxzwi-xlaacpcne-lzdol-svp-rio.html Contact a health care provider if: You have concerns about any signs or symptoms of cancer, such as: ?Moles that have an unusual shape or color. ?Changes in existing moles. ?A sore on your skin that does not heal. ?Blood in your urine or stool. ?Fatigue that does not go away. ?Frequent pain or cramping in your abdomen. ?Coughing or trouble breathing that does not go away. ?Coughing up blood. ?Losing weight without trying. ?Changes in urination habits. ?Painful urination or ejaculation. Summary Be aware of and watch for signs and symptoms of cancer, especially symptoms of lung cancer, prostate cancer, colorectal cancer, and skin cancer. Early detection of cancer with cancer screening may save your life. Talk with your health care provider about your specific cancer risks. Work together with your health care provider to create a cancer screening plan that is right for you. This information is not intended to replace advice given to you by your health care provider. Make sure you discuss any questions you have with your health care provider. Document Released: 11/03/2016 Document Revised: 10/26/2018 Document Reviewed: 11/03/2016 [employer] Patient Education 2020 [employer]. Follow Up Care 05/26/2021 09:04:31 With:FABIAN PALMER, Fritz Polo, URL Address: [facility] [address] [place] [address]- [phone] When:05/28/2023 Comments:[facility] 04-06-2022 Hospital Discharge instructions Patient Education 05/26/2021 09:08:46 Acute Urinary Retention, Male Acute Urinary Retention, Male Acute urinary retention is a condition in which a person is unable to pass urine. This can last fora short time or for a long time. If left untreated, it can result in kidney damage or other seriouscomplications. What are the causes? This condition may be caused by: Obstruction or narrowing of the tube that drains the bladder (urethra). This may be caused by surgery or problems with nearby organs, such as the prostate gland, which can press or squeeze the urethra. Problems with the nerves in the bladder. These can be caused by diseases, such as multiple sclerosis, or by spinal cord injuries. Certain medicines. Tumors in the area of the pelvis, bladder, or urethra. Diabetes. Degenerative cognitive conditions such as delirium or dementia. Bladder or urinary tract infection. Constipation. Blood in the urine (hematuria). Injury to the bladder or urethra. Psychological (psychogenic) conditions. Someone may hold his urine due to trauma or because he doesnot want to use the bathroom. What increases the risk? This condition is more likely to develop in older men. As men age, their prostate may become largerand may start pressing or squeezing on the bladder or the urethra. What are the signs or symptoms? Symptoms of this condition include: Trouble urinating. Pain in the lower abdomen. Symptoms usually come on slowly over a long period of time. How is this diagnosed? This condition is diagnosed based on a physical exam and a medical history. You may also have othertests, including: An ultrasound of the bladder or kidneys or both. Blood tests. A urine analysis. Additional tests may be needed such as an MRI, kidney, or bladder function tests. How is this treated? Treatment for this condition may include: Medicines. Placing a thin, sterile tube (catheter) into the bladder to drain urine out of the body. This is called an indwelling urinary catheter. After being inserted, the catheter is held in place with a small balloon that is filled with sterile water. Urine drains from the catheter into a collection bag outside of the body. Behavioral therapy. Treatment for any underlying conditions. If needed, you may be treated in the hospital for kidney function problems or to manage other complications. Follow these instructions at home: Take kkyi-eoo-tafllps and prescription medicines only as told by your health care provider. Avoid certain medicines, such as decongestants, antihistamines, and some prescription medicines. Do not take any medicine unless your health care provider has approved. If you were given an indwelling urinary catheter, take care of it as told by your health care provider. Drink enough fluid to keep your urine clear or pale yellow. If you were prescribed an antibiotic, take it as told by your health care provider. Do not stop taking the antibiotic even if you start to feel better. Do not use any products that contain nicotine or tobacco, such as cigarettes and e-cigarettes. If you need help quitting, ask your health care provider. Monitor any changes in your symptoms. Tell your health care provider about any changes. If instructed, monitor your blood pressure at home. Report changes as told by your health care provider. Keep all follow-up visits as told by your health care provider. This is important. Contact a health care provider if: You have uncomfortable bladder contractions that you cannot control (spasms) or you leak urine withthe spasms. Get help right away if: You have chills or fever. You have blood in your urine. You have a catheter and: ?Your catheter stops draining urine. ?Your catheter falls out. Summary Acute urinary retention is a condition in which a person is unable to pass urine. If left untreated, it can result in kidney damage or other serious complications. The cause of this condition may include an enlarged prostate. As men age, their prostate gland may become larger and may start pressing or squeezing on the bladder or the urethra. Treatment for this condition may include medicines and placement of an indwelling urinary catheter. Monitor any changes in your symptoms. Tell your health care provider about any changes. This information is not intended to replace advice given to you by your health care provider. Make sure you discuss any questions you have with your health care provider. Document Released: 05/15/2001 Document Revised: 01/19/2018 Document Reviewed: 03/10/2017 [employer] Patient Education 2020 [employer]. Follow Up Care 01/22/2021 12:59:00 With:MALIK PUENTE, MICHELE Angel, URL Address: When:1 year [facility] 05-06-2021 NoteHNO ID: [id number] Author: Allan Velasquez MD Service: ? Author Type: Physician Type: Progress Notes Filed: 06/25/2020 1:09 PM Note Text: New Patient Consult REASON FOR VISIT Jose Armando Tinoco is a 65 year old male who is scheduled for a consult at the request of Dr Gallegos for possible perirectal abscess. My final recommendations will be communicated back to the requesting physician by the way of the shared medical record, fax, or via US Mail History of Present Illness: Jose Armando Tinoco is a 65 year old male who was referred for evaluation of abscess Colonoscopy w/ Dr Gallegos - 03/27/2020- tubular adenoma -rectal polyp removed; Patient says since he had a colonoscopy in Mar he has had issues with his anus and is concerned he has an abscess. Started about 2w after his cscope with pain near the anus with swelling, difficulty sleeping. Noticed it got bigger with time. No fevers or chills, but feels warm around the area. He had been using a Rx topical steroid(?) on his bottom but hasn't used it for a few weeks. Last week during a BM he had a significant relief and thinks he might have had some drainage. During this time admits to some urinary retention symptoms. This has all improved over the last few days since this spontaneous relief of pain. He is feeling better over the last few days. No past medical history on file. denies PAST SURGICAL HISTORY Procedure Laterality Date - COLONOSCOPY 2020 double inguinal herniorraphy 8y ago No family history on file. Social History Tobacco Use - Smoking status: Former Smoker - Smokeless tobacco: Never Used - Tobacco comment: Pt. states he quit about 2.5yrs ago Substance Use Topics - Alcohol use: Not on file - Drug use: Not on file MEDICATIONS Current Outpatient Medications Medication Sig Dispense Refill - acetaminophen (TYLENOL ORAL) Take by mouth as needed. - IBUPROFEN ORAL Take by mouth once daily. No current facility-administered medications for this visit. CURRENT ALLERGIES ALLERGIES No Known Allergies PHYSICAL EXAMINATION BP 150/72 Pulse 80 Temp 97.9 Ht 5' 10 (1.78m) Wt 180 lb (81.6kg) SpO2 96% BMI 25.83 kg/(m2). General Appearance: Well appearing, alert, in no acute distress Skin: Skin color, turgor normal Anorectal: Left posterior induration with small punctate tract, likely healing perianal abscess, small thrombosed hemorrhoid(pea sized). CHRISTINA-engorged hemorrhoidal cushions Anoscopy- patient placed in prone-jacknife. Anoscope inserted into the anal canal. Enlarged and engorged internal hemorrhoids, grade 3; no clear internal opening was seen, though exam was limited. Anoscope was then removed, patient tolerated well. Manager Business Systems- yes renetta Diagnostic tests reviewed for today's visit: I have confirmed and edited as necessary, the PFSH and ROS obtained by others. Assessment ASSESSMENT Likely healing perianal abscess with small left posterior induration. No residual abscess to be drained RECOMMENDATION - 5d augmentin - follow-up PRN if he continues to have drainage symptoms or any concern for development of a pooygis-ek-vzb Allan Velasquez[facility] Future Appointments Appointment Date:05/27/2022 08:30:00 AM Scheduled Provider:Fritz ARELLANO MD Location:[facility] Appointment Type:URO Office Visit Diagnostic Tests Pending * PSA Total 05/26/21 [facility] evaluation + Plan note Future Appointments Appointment Date:06/02/2023 08:00:00 AM Scheduled Provider:Fritz ARELLANO MD Location:[facility] Appointment Type:URO Office Visit Diagnostic Tests Pending * PSA Total 05/27/22 [facility] evaluation note* Diagnosis Elevated PSA Elevated prostate specific antigen (PSA) documented [facility] Diagnosis Elevated PSA Elevated prostate specific antigen (PSA) BPH with obstruction/lower urinary tract symptoms Hypertrophy of prostate with urinary obstruction and other lower urinary tract symptoms (LUTS) [facility]* Diagnosis Elevated PSA Elevated prostate specific antigen (PSA) BPH with obstruction/lower urinary tract symptoms Hypertrophy of prostate with urinary obstruction and other lower urinary tract symptoms (LUTS) [facility]* Diagnosis Elevated PSA Elevated prostate specific antigen (PSA) [facility] Narrative No data available for this section [facility] progress note No data available for this section [facility] reason for visit Narrative* Imaging (Routine) - Closed SpecialtyDiagnoses / ProceduresReferred By ContactReferred To ContactRadiology Diagnoses Elevated PSA BPH with obstruction/lower urinary tract symptoms Procedures MRI PROSTATE W WO CONTRAST Lory Beard MD [address] [place] [address], [address] [place] [id number] Phone: tel: fax: Referral IDStatusReasonStart DateExpiration DateVisits RequestedVisits [id number] [facility] Advance Directives No Advanced Directives Records Found Advance Directive Response Recorded Date/ Time Advance Directives No March 19, 2020 4:01pm Chief Complaint and Reason for Visit Chief Complaint Screening Assessments No Assessments Information Available Summary Purpose Family History No Family History Records FoundNo Family History Records FoundNo Family History Records FoundNo Family History Records FoundNo Family History Records Found Additional Source Comments Source Comments (unrecognize d section and content) In the event this informatio n is protected by the Federal Confidentiality of Alcohol and Drug Abuse Patient Records regulations: The Federal rules restrict any use of the information to criminally investigate or prosecute any alcohol or drug abuse patient.[facility] the event this information is protected by the Federal Confidentiality of Alcohol and Drug Abuse Patient Records regulations: The Federal rules restrict any use of the information to criminally investigate or prosecute any alcohol or drug abuse patient.[facility] Hospital[facility] the event this information is protected by the Federal Confidentiality of Alcohol and Drug Abuse Patient Records regulations: The Federal rules restrict any use of the information to criminally investigate or prosecute any alcohol or drug abuse patient.[facility] (unrecognized sect ion and content) No Status Records FoundNo Status Records FoundNo Status Records FoundNo Status Records FoundNo Status Records Found INFORMATION SOURCE (unrecogn ized section and content) DATE CREATED AUTHOR 12/21/2020 [facility] DATE CREATED AUTHOR 'S CYN JAY 03/23/2021 [facility] DATE CREATED AUTHOR AUTHOR'S ORGANIZ ATION 10/21/2022 [facility] DATE CREATED AUTHOR AUTHOR'S ORGANIZ ATION 05/22/2024 [facility] DATE CREATED AUTHOR AUTHOR'S ORGANIZ ATION 12/21/2024 [facility] Patient Care team informatio n (unrecognized section and content) Team MemberRelationshipSpecialtyStart DateEnd Date Eddi Xiong, MANAGER COST - TELECOMMUNICATIONS LINE MECHANIC [address] [place] [address] PCP - GeneralNurse Mrnrvvabsmfy61/9/23Team MemberRelationshipSpecialtyStart Date End Date Attila Tierney APRN - TELECOMMUNICATIONS LINE MECHANIC [address] [place] [address] PCP - GeneralNurse Practitioner05/15/24Team MemberRelationshipSpecialtyStart Date End Date Attila Tierney APRN - TELECOMMUNICATIONS LINE MECHANIC [address] [place] [address] PCP - GeneralNurse Practitioner05/15/24Team MemberRelationshipSpecialtyStart Date End Date ColleenCamelia hernandezDEBBIE neumann NP [address] [place] [address] PCP - GeneralNurse Practitioner05/15/24 FOR RECORDS PERTAINING TO PATIENTS WHO ARE OR HAVE BEEN ENROLLED IN A CHEMICAL DEPENDENCY/SUBSTANCEABUSE PROGRAM, SOME INFORMATION MAY BE OMITTED. This clinical summary was aggregated from multiple sources. Caution should be exercised in using it in the provision of clinical care. This summary normalizes information from multiple sources, and as a consequence, information in this document may materially change the coding, format and clinical context of patient data. In addition, data may be omitted in some cases. CLINICAL DECISIONS SHOULD BE BASED ON THE PRIMARY CLINICAL RECORDS. [facility] [employer] [facility] provides no warranty or guarantee of the accuracy or completeness of information in this document."
[2025-02-17 19:53] VITALS: BP 136/89; PULSE 78; O2SAT 97
--- NOTE | 2025-02-21 09:46 | PC.NURSE ---
02/21/25: URINE CULTURE NEGATIVE FOR GROWTH
== END 2025-02-17 19:54 | disposition home or self-care (01) ==
PROVIDERS: Physician Assistant; Emergency Provider Emergency Medicine; PCP Nurse Practitioner Primary Care
DX: R33.9 Retention of urine, unspecified (principal); F17.200 Nicotine dependence, unspecified, uncomplicated; S37.39XA Other injury of urethra, initial encounter
CPT/HCPCS: 51702; 81001; 87086; 99283